=== PATIENT | male | born 1985 | race African-American/Black ===

== ENCOUNTER 2020-05-05 08:26 | Inpatient (IN) | payer SELFPAY ==
[2020-05-05 08:52] LABS: HEMATOCRIT 30.5 % (37.9-51.0); HEMOGLOBIN 10.5 g/dL (13.5-17.0); MEAN CORPUSCULAR HEMOGLOBIN 27.9 pg (27.0-33.4); MEAN CORPUSCULAR HGB CONC 34.3 g/dL (32.0-36.0); MEAN CORPUSCULAR VOLUME 81 fl (80-97); PLATELET COUNT 126 10^3/uL (150-450); RED BLOOD COUNT 3.75 10^6/uL (4.35-5.55); RED CELL DISTRIBUTION WIDTH 15.6 % (11.5-14.0)
--- NOTE | 2020-05-05 08:53 | ER Document Report ---
ED GI/ <AMANDA CAMARILLO - Last Filed: 05/05/20 21:42> <DAVIDDANILO HartSAYDA Nelly - Last Filed: 05/06/20 14:44> - General Chief Complaint: Abdominal Pain Stated Complaint: ABDOMINAL PAIN Time Seen by Provider: 05/05/20 08:38 - HPI Notes: Patient is a 34 y/o male with no medical hx who presents with midepigastric abdominal pain that has been intermittent for the past two weeks. Patient describes the pain as stabbing that is worse after eating. He reports nausea, vomiting, and diarrhea. He also states his urine has been dark in color, like "soda". He was able to keep soup down this morning. He denies chest pain, s hortness of breath, penile discharge, and dysuria. He denies any abdominal surgical history. He is a current everyday smoker but states he has not smoked in the past 2 weeks when this pain began. He denies alcohol and recreational drug use. (SAYDA HERNANDEZ) - Related Data Allergies/Adverse Reactions: No Known Allergies Allergy (Unverified 05/05/20 08:39) Past Medical History - General Information source: Patient - Social History Smoking Status: Current Every Day Smoker Frequency of alcohol use: None Drug Abuse: None Family History: Reviewed & Not Pertinent Patient has homicidal ideation: No <SAYDA HERNANDEZ Nelly - Last Filed: 05/06/20 14:44> Review of Systems - Review of Systems Constitutional: No symptoms reported EENT: No symptoms reported Cardiovascular: No symptoms reported Respiratory: No symptoms reported Gastrointestinal: See HPI Genitourinary: See HPI Male Genitourinary: No symptoms reported Musculoskeletal: No symptoms reported Skin: No symptoms reported Hematologic/Lymphatic: No symptoms reported Neurological/Psychological: No symptoms reported <SAYDA HERNANDEZ M - Last Filed: 05/06/20 14:44> Physical Exam <SAYDA HERNANDEZ Nelly - Last Filed: 05/06/20 14:44> - Vital signs Vitals: Temp Pulse Resp BP Pulse Ox 98 F 98 16 112/64 100 05/05/20 08:39 05/05/20 08:39 05/05/20 08:39 05/05/20 08:39 05/05/20 08:39 - Notes Notes: PHYSICAL EXAMINATION: VITALS: Vitals reviewed and within normal limits. GENERAL: Well-appearing, well-nourished and in no acute distress. HEAD: Atraumatic, normocephalic. EYES: Pupils equal, round, and reactive to light, extraocular movements intact, sclera anicteric, conjunctiva are normal. ENT: Nares patent. Moist mucous membranes. NECK: Normal range of motion, supple without lymphadenopathy. LUNGS: Breath sounds clear to auscultation bilaterally and equal. No wheezes, rales, or rhonchi. HEART: Regular, rate, and rhythm without murmurs. ABDOMEN: Soft abdomen with normoactive bowel sounds. Tenderness to the mid epigastric and RUQ with guarding, no rebound. + Salgado's sign. No masses appreciated. EXTREMITIES: Normal range of motion, no pitting or edema. No cyanosis. NEUROLOGICAL: No focal neurological deficits. Moves all extremities sp ontaneously and on command. PSYCH: Normal mood, normal affect. SKIN: Warm, Dry, normal turgor, no rashes or lesions noted. (SAYDA HERNANDEZ) Course - Laboratory Results Result Diagrams: 05/05/20 08:30 05/05/20 20:29 <AMANDA CAMARILLO - Last Filed: 05/05/20 21:42> - Laboratory Results Result Diagrams: 05/06/20 06:14 05/06/20 06:14 Critical Laboratory Results Reviewed: No Critical Results - Radiology Results Critical Radiology Results Reviewed: Yes Attending or Supervising Physician who Reviewed Radiology: LILLIAM MENA <SAYDA HERNANDEZ - Last Filed: 05/06/20 14:44> - Re-evaluation Re-evalutation: 05/05/20 21:07 I called [facility] to speak with them about possibly getting the patient an ERCP. Awaiting callback from their GI on-call. I clarif ied with [facility], and indeed the hospital is currently on regional management. 05/05/20 21:17 I received a call back from [facility]. 05/05/20 21:[address] Dias, the surgeon personal banking advisor. The plan is to admit the patient to the hospitalist service, as he has a cavitary in his lung lesion also. 05/05/20 21:[address] Jackson, the hospitalist. Patient will be admitted to the medical floor. (RABIA,AMANDA Villegas) Patient is a 34 y/o male with no medical hx who presents with RUQ and midepigastric abdominal pain for the past two weeks. Vital signs are within normal limits. On exam, significant right upper quadrant midepigastric tenderness with positive Salgado's sign. WBC elevated at 16. Total bilirubin and alk phos both elevated with levels of 7.9 and 343. Gallbladder ultrasound shows diffuse gallbladder wall thickening, pericholecystic fluid, sludge and positive sonographic Salgado's sign -these findings are consistent with acute cholecystitis. 05/05/20 10:28 I spoke with the surgeon on-call, Dr. Dias, concerning this patient. Due to his elevated bilirubin on 7.9, he is concerned that patient has an obstructing stone in the biliary tract and patient would need an ERCP. He recommended calling Dr. Cohen to see if he would be willing to come in on his day off to perform and ERCP. If not the patient will need to be transferred for ERCP and cholecystectomy. 05/05/20 10:30 Cipro IV 400mg, Flagyl IV 500mg, and Dilaudid IV 1mg ordered for antibiotic coverage and pain relief. 05/05/20 10:[address] Cohen's office but there was no answer, voicemail was left. 05/05/20 10:52 [facility] contacted for potential transfer but they are at capacity and not accepting stable patient's at this time. 05/05/20 10:55 [facility] contacted for potential transfer but they are also at capacity and not accepting stable patient's at this time. 05/05/20 10:57 Dr. Cohen's office called again and call answered. Spoke with an employee and report given. Was informed that I would be called back shortly. 05/05/20 11:34 Dr. Cohen called back and is unable to consult on this patient for ERCP. 05/05/20 11:40 I spoke with my supervising physician, Dr. Mena, concerning this patient and he recommends ordering an MRCP initially to see if an ERCP is needed. 05/05/20 14:10 MCRP shows pericholecystic fluid consistent with cholecystitis. No dilated common bile duct. Parenchymal opacities at the lung bases with possible right lung mass. Recommended chest XR which was ordered. 05/05/20 14:20 Chest XR shows cavitary right lower lobe lesion. Recommend CT with contrast. I spoke with Dr. Mena who recommends proceeding with CT chest w/IV contrast. 05/05/20 15:14 Patient has a temperature of 102.2. IV acetaminophen ordered. 05/05/20 15:[address] Chest results which shows pulmonary nodules of varying size that exhibit varying degrees of cavitation and tree-in-bud nodular opacities. These patterns of disease can be the result of a number of different conditions, however it is important to note that tubercu losis can manifest as both of these patterns and should be excluded. AFB culture and smear ordered. I spoke with the patient and he denies any cough and hemoptysis at this time. He denies any prior residential or intermediate time. 05/05/20 15:[address] Dias concerning this patient and updated him on the work up and no available transfers. He is still uncomfortable going to surgery without an ERCP and would prefer the patient to be transferred if possible. I will continue to call and keep him informed. 05/05/20 15:42 [facility] transfer center called and message left. 05/05/20 15:45 [facility] transfer center called. They are currently at capacity but will place the patient on a waitlist. They are requesting a facesheet be faxed and imaging uploaded to [facility]. 05/05/20 15:54 [facility] called back and they do not ERCP coverage today. 05/05/20 16:16 Temp 102.6 after IV tylenol. Sepsis protocol fluids and lactic acid ordered. Patient 05/05/20 17:42 Dr. Allan, biliary specialist at [facility], called to consult on the patient. He does not think an ERCP is indicated as there is no common bile duct dilation. He recommends proceeding with acute cholecystectomy or having IR place a percutaneous gallbladder drain. 05/05/20 17:51 Dr. Dias called and updated on the phone call with Dr. Allan. He still does not feel comfortable performing an acute cholecystectomy without an ERCP. 05/05/20 18:11 Dr. Espinosa called to see if he could perform ERCP at a later time. He states he is too busy at this time but he did recommend proceeding with acute cholecystectomy and doing ERCP later as an ERCP is not emergent, where the acute cholecystectomy is. 05/05/20 18:12 Dr. Mena tried to call Dr. Dias but he is currently in the OR and will call back later. 05/05/20 20:02 Dr. Dias agreed to take the patient to surgery if the patient could have an ERCP done by Sunday05/08/20. I called Dr. Espinosa to see if he was available and he is not. We will continue to work on transferring the patient to receive ERCP and acute cholecystectomy. 05/05/20 20:15 Sign out given to Amanda Camarillo NP. (SAYDA HERNANDEZ) - Vital Signs Vital signs: Temp Pulse Resp BP Pulse Ox 98.3 F 96 20 113/79 99 05/06/20 08:33 05/05/20 18:15 05/06/20 07:01 05/06/20 07:01 05/06/20 07:01 - Laboratory Results Laboratory Results Interpreted: 05/05/20 05/05/20 05/05/20 08:30 08:30 08:30 WBC 16.0 H RBC 3.75 L Hgb 10.5 L Hct 30.5 L RDW 15.6 H Plt Count 126 L Seg Neuts % (Manual) 88 H Band Neutrophils % 1 L Lymphocytes % (Manual) 3 L Abs Neuts (Manual) 14.2 H PT 15.7 H Sodium 131.9 L Chloride 96 L BUN 63 H Creatinine 1.71 H Est GFR ( Amer) 55 L Est GFR (MDRD) Non-Af 46 L Calcium 8.3 L Total Bilirubin 7.9 H Direct Bilirubin 7.1 H AST 101 H Alkaline Phosphatase 343 H Creatine Kinase Total Protein Albumin 2.4 L Lipase Urine Protein Urine Blood Urine Bilirubin Urine Urobilinogen 05/05/20 05/05/20 05/05/20 08:30 08:30 20:29 WBC RBC Hgb Hct RDW Plt Count Seg Neuts % (Manual) Band Neutrophils % Lymphocytes % (Manual) Abs Neuts (Manual) PT Sodium 131.5 L Chloride BUN 59 H Creatinine 1.61 H Est GFR ( Amer) 59 L Est GFR (MDRD) Non-Af 49 L Calcium 7.7 L Total Bilirubin 7.9 H Direct Bilirubin 7.1 H AST 80 H Alkaline Phosphatase 252 H Creatine Kinase < 20 L Total Protein 5.7 L Albumin 2.0 L Lipase 19.8 L Urine Protein 30 H Urine Blood SMALL H Urine Bilirubin SMALL H Urine Urobilinogen 4.0 H - Radiology Results Radiology Results Interpreted: Abdomen Ultrasound 05/05/20 08:46 IMPRESSION: 1. Diffuse gallbladder wall thickening, pericholecystic fluid, sludge and positive Salgado's sign - these findings are concerning for an acute cholecystitis. 2. The mid and distal abdominal aorta are obscured by overlying bowel. Abdomen MRI 05/05/20 11:39 IMPRESSION: Pericholecystic fluid consistent with cholecystitis. No dilated common bile duct. Parenchymal opacities at the lung bases with possible right lung mass. Chest X-Ray 05/05/20 14:09 IMPRESSION: Cavitary right lower lobe lesion. Recommend CT with contrast. Chest CT 05/05/20 14:49 IMPRESSION: Pulmonary nodules of varying size that exhibit varying degrees of cavitation and tree-in-bud nodular opacities. These patterns of disease can be the result of a number of different conditions, however it is important to note that tuberculosis can manifest as both of these patterns and should be excluded. (SAYDA HERNANDEZ) Discharge - Discharge Admitting Provider: [facility] Unit Admitted: Medical Floor <AMANDA CAMARILLO - Last Filed: 05/05/20 21:42> <SAYDA HERNANDEZ - Last Filed: 05/06/20 14:44> - Discharge Clinical Impression: Acute cholecystitis, Cavitary lesion of lung Condition: Stable Disposition: ADMITTED INPATIENT
[2020-05-05 08:54] LABS: APPEARANCE,URINE CLOUDY; BILIRUBIN,URINE SMALL (NEGATIVE); COLOR,URINE AMBER; GLUCOSE, URINE NEGATIVE (NEGATIVE); KETONES,URINE NEGATIVE (NEGATIVE); LEUKOCYTE ESTERASE,URINE NEGATIVE (NEGATIVE); NITRITE,URINE NEGATIVE (NEGATIVE); PROTEIN,URINE 30 mg/dL (NEGATIVE); URINE SPECIFIC GRAVITY 1.016
[2020-05-05 08:57] LABS: INTERNATIONAL RATION (INR) 1.23; PROTHROMBIN TIME 15.7 SEC (11.4-15.4)
[2020-05-05 09:07] LABS: ALBUMIN 2.4 g/dL (3.5-5.0); ALKALINE PHOSPHATASE 343 U/L (38-126); ANION GAP 9 (5-19); ASPARTATE AMINO TRANSFERASE 101 U/L (17-59); BILIRUBIN,DIRECT 7.1 mg/dL (0.0-0.4); BILIRUBIN,TOTAL 7.9 mg/dL (0.2-1.3); BLOOD UREA NITROGEN 63 mg/dL (7-20); CALCIUM 8.3 mg/dL (8.4-10.2); CARBON DIOXIDE 27 mmol/L (22-30); CHLORIDE 96 mmol/L (98-107); GLUCOSE 80 mg/dL (75-110); POTASSIUM 3.8 mmol/L (3.6-5.0); TOTAL PROTEIN 6.5 g/dL (6.3-8.2)
[2020-05-05 09:09] LABS: ABSOLUTE LYMPHOCYTES# (MANUAL) 0.5 10^3/uL (0.5-4.7); ABSOLUTE MONOCYTES # (MANUAL) 1.3 10^3/uL (0.1-1.4); BAND NEUTROPHILS % (MANUAL) 1 % (3-5); BASOPHILS % (MANUAL) 0 % (0-2); EOSINOPHILS % (MANUAL) 0 % (0-6); LYMPHOCYTES % (MANUAL) 3 % (13-45); MONOCYTES % (MANUAL) 8 % (3-13); SEGMENTED NEUTROPHILS % (MAN) 88 % (42-78); TOTAL CELLS COUNTED 100
[2020-05-05 09:10] LABS: PLATELET COMMENT DECREASED; RBC MORPHOLOGY COMMENT NORMO-CYTIC/CHROMIC; TOXIC VACUOLATION PRESENT
[2020-05-05] MEDS ORDERED: NORMAL SALINE 1000 ML 1,000 ML IV ONE (09:30)
[2020-05-05 09:43] LABS: CREATINE KINASE < 20 U/L (55-170)
--- NOTE | 2020-05-05 09:53 | RADIOLOGY REPORT (SQ) ---
EXAM DESCRIPTION: U/S ABDOMEN LIMITED W/O DOP IMAGES COMPLETED DATE/TIME: 05/05/2020 9:22 am REASON FOR STUDY: RUQ pain COMPARISON: None. TECHNIQUE: Dynamic and static grayscale images acquired of the abdomen and recorded on PACS. Additio nal selected color Doppler and spectral images recorded. LIMITATIONS: None. FINDINGS: PANCREAS: The visualized portions of the pancreas appear normal. LIVER: Normal contour and echotexture of the liver. LIVER VASCULATURE: Normal hepatopetal directional flow in the main portal vein. GALLBLADDER: The gallbladder wall is diffusely thickened (measures 5 mm). There is sludge within the gallbladder lumen and there is pericholecystic fluid. ULTRASOUND-DETECTED AGUIAR'S SIGN: Positive. INTRAHEPATIC DUCTS AND COMMON DUCT: The common bile duct measures 5 mm in diameter. There is no dila tation of the intrahepatic ducts. INFERIOR VENA CAVA: Not assessed. AORTA: The mid and distal abdominal aorta are obscured by overlying bowel. RIGHT KIDNEY: The right kidney measures 11.7 cm in length. There is no hydronephrosis. PERITONEAL AND RIGHT PLEURAL SPACE: No ascites or effusions. OTHER: No other findings. IMPRESSION: 1. Diffuse gallbladder wall thickening, pericholecystic fluid, sludge and positive Murp hy's sign - these findings are concerning for an acute cholecystitis. 2. The mid and distal abdominal aorta are obscured by overlying bowel. TECHNICAL DOCUMENTATION: JOB ID: [id number] [employer]- All Rights Reserved Reading location - IP/workstation name: [email or web address]
[2020-05-05] MEDS ORDERED: CIPROFLOXACIN 400 MG/D5W RTU 400 MG/200 ML RTUPB IV ONE (10:46)
[2020-05-05] MEDS ORDERED: HYDROMORPHONE HCL INJ/PF 2 MG/ML AMPULE IV ONE (10:46)
[2020-05-05] MEDS ORDERED: METRONIDAZOLE 500 MG/NS RTU 500 MG/100 ML RTUPB IV ONE (10:47)
--- NOTE | 2020-05-05 14:07 | RADIOLOGY REPORT (SQ) ---
EXAM DESCRIPTION: MRI ABDOMEN WITHOUT IMAGES COMPLETED DATE/TIME: 05/05/2020 1:31 pm REASON FOR STUDY: MRCP COMPARISON: Ultrasound TECHNIQUE: Noncontrast MRCP. Source and MIP images reviewed. LIMITATIONS: None. FINDINGS: GALLBLADDER: Pericholecystic fluid. No obvious stones. INTRAHEPATIC DUCTS: Nondilated. EXTRAHEPATIC DUCTS: Common duct is normal caliber. No dilatation of the pancreatic duct. No ductal filling defects noted. PANCREAS: Generally homogeneous, no gross mass or significant signal alteration. No surrounding infl ammatory changes or fluid. Pancreatic duct is normal. LIVER, SPLEEN, KIDNEYS, ADRENALS: No significant abnormality. VESSELS: No evidence of aneurysm. Grossly appropriate flow voids in the major vascular structures. LUNG BASES: Basilar opacities. Possible mass on right. OTHER: No other significant finding. IMPRESSION: Pericholecystic fluid consistent with cholecystitis. No dilated common bile duct. Parenchymal opacities at the lung bases with possible right lung mass. COMMENT: Recommend chest x-ray. TECHNICAL DOCUMENTATION: JOB ID: [id number] 2010 [employer]- All Rights Reserved Reading location - IP/workstation name: [email or web address]
--- NOTE | 2020-05-05 14:35 | RADIOLOGY REPORT (SQ) ---
EXAM DESCRIPTION: CHEST SINGLE VIEW IMAGES COMPLETED DATE/TIME: 05/05/2020 2:20 pm REASON FOR STUDY: possible right lung mass seen on MRCP COMPARISON: None. EXAM PARAMETERS: NUMBER OF VIEWS: One view. TECHNIQUE: Single frontal radiographic view of the chest acquired. RADIATION DOSE: NA LIMITATIONS: None. FINDINGS: LUNGS AND PLEURA: Vague cystic opacity in the right mid zone. Left lung is clear. MEDIASTINUM AND HILAR STRUCTURES: No masses. Contour normal. HEART AND VASCULAR STRUCTURES: Heart normal in size. Normal vasculature. BONES: No acute findings. HARDWARE: None in the chest. OTHER: No other significant finding. IMPRESSION: Cavitary right lower lobe lesion. Recommend CT with contrast. TECHNICAL DOCUMENTATION: JOB ID: [id number] 2010 [employer]- All Rights Reserved Reading location - IP/workstation name: [email or web address]
[2020-05-05] MEDS ORDERED: MORPHINE SULFATE 10 MG/ML INJ IV ONE ×2 (14:56→21:33)
[2020-05-05] MEDS ORDERED: ACETAMINOPHEN 1,000 MG/100 ML RTUPB IV ONE (15:14)
--- NOTE | 2020-05-05 15:24 | RADIOLOGY REPORT (SQ) ---
EXAM DESCRIPTION: CT CHEST WITH IMAGES COMPLETED DATE/TIME: 05/05/2020 3:03 pm REASON FOR STUDY: right lower lobe cavitary lesion COMPARISON: AP view of the chest from 05/05/2020. TECHNIQUE: CT scan of the chest performed using helical scanning technique with dynamic intravenous contrast injection. Images reviewed with lung, soft tissue and bone windows. Reconstructed coronal and sagittal MPR and MIP images reviewed. All images stored on PACS. All CT scanners at this facility use dose modulation, iterative reconstruction, and/or weight based d osing when appropriate to reduce radiation dose to as low as reasonably achievable (ALARA). [facility]: Dose Right [facility]: CareDose [facility]: Dose Right [facility]: Teradose 4D [facility]: BroadClip CONTRAST TYPE AND DOSE: 80 mL Omnipaque 350- low osmolar. RENAL FUNCTION: Creatinine 1.71 milligrams/deciliter. RADIATION DOSE: CT Rad equipment meets quality standard of care and radiation dose reduction techniq ues were employed. CTDIvol: 7.2 mGy. DLP: 292 mGy-cm. LIMITATIONS: None. FINDINGS: LUNGS AND PLEURA: The trachea and main bronchi are patent. There are numerous nodules of varying sizes that exhibit varying degrees of cavitation ; the largest of these nodules is located in the right middle lobe and it measures 2.6 x 1.9 cm. In addition to the nodules, there are scattered areas of centrilobular nodularity in a linear branching pattern. There is no lobar consolidation, g round-glass opacification, pleural effusion or pneumothorax. There is no bronchiectasis, bronchial w all thickening or mucus plugging. HILAR AND MEDIASTINAL STRUCTURES: There is no enlarged mediastinal hilar adenopathy. HEART AND VASCULAR STRUCTURES: No aneurysm or dissection of the thoracic aorta. HARDWARE: None in the chest. UPPER ABDOMEN: No acute abnormality. THYROID AND OTHER SOFT TISSUES: No adenopathy or mass. BONES: No fracture or osseous lesion. OTHER: No other finding. IMPRESSION: Pulmonary nodules of varying size that exhibit varying degrees of cavitation and tree-in -bud nodular opacities. These patterns of disease can be the result of a number of different conditi ons, however it is important to note that tuberculosis can manifest as both of these patterns and terri uld be excluded. COMMENT: This report was called to SAYDA HERNANDEZ PA-C at 15:17 on 05/05/2020. TECHNICAL DOCUMENTATION: JOB ID: [id number] Quality ID # [id number]: Final reports with documentation of one or more dose reduction techniques (e.g., Au tomated exposure control, adjustment of the mA and/or kV according to patient size, use of iterative reconstruction technique) 2010 [employer]- All Rights Reserved Reading location - IP/workstation name: [email or web address]
[2020-05-05] MEDS ORDERED: NORMAL SALINE IV ONE (16:15)
[2020-05-05] MEDS ORDERED: METRONIDAZOLE 500 MG/NS RTU 500 MG/100 ML RTUPB IV SCH (19:00)
[2020-05-05 20:53] LABS: ALKALINE PHOSPHATASE 252 U/L (38-126); ANION GAP 8 (5-19); ASPARTATE AMINO TRANSFERASE 80 U/L (17-59); BILIRUBIN,DIRECT 7.1 mg/dL (0.0-0.4); BILIRUBIN,TOTAL 7.9 mg/dL (0.2-1.3); BLOOD UREA NITROGEN 59 mg/dL (7-20); CALCIUM 7.7 mg/dL (8.4-10.2); CARBON DIOXIDE 23 mmol/L (22-30); CHLORIDE 101 mmol/L (98-107); GLUCOSE 75 mg/dL (75-110); POTASSIUM 3.8 mmol/L (3.6-5.0); TOTAL PROTEIN 5.7 g/dL (6.3-8.2)
--- NOTE | 2020-05-05 21:27 | PDOC CONSULTATION ---
Consultation Consult Date: 05/05/20 Attending physician:: AMANDA CAMARILLO Provider Consulted: ARIANNA PHELAN Consult reason:: cholecystitis, possible choledocholithiasis History of Present Illness History of Present Illness: CHRISTOFER ANTHONY is a 34 year old male with no medical hx who presents with midepigastric abdominal pain that has been intermittent for the past two weeks. Patient describes the pain as stabbing that is worse after eating. He reports nausea, vomiting, and diarrhea. He also states his urine has been dark in color, like "soda". He was able to keep soup down this morning. He denies chest pain, shortness of breath, penile discharge, and dysuria. He denies any abdominal surgical history. He is a current everyday smoker but states he has not smoked in the past 2 weeks when this pain began. He denies alcohol and recreational drug use. Social History Smoking Status: Current Every Day Smoker Family History Family History: Reviewed & Not Pertinent Parental Family History Reviewed: No Children Family History Reviewed: NA Sibling(s) Family History Reviewed.: NA Medication/Allergy Allergies/Adverse Reactions: No Known Allergies Allergy (Unverified 05/05/20 08:39) Review of Systems Constitutional: PRESENT: anorexia, fever(s) Eyes: ABSENT: visual disturbances Ears: ABSENT: hearing changes Nose, Mouth, and Throat: ABSENT: as per HPI, headache(s), mouth pain, sore throat, vertigo, other Breasts: ABSENT: as per HPI, other Cardiovascular: ABSENT: as per HPI, chest pain, dyspnea on exertion, edema, orthropnea, palpitations, other Respiratory: ABSENT: as per HPI, cough, dyspnea, hemoptysis, sputum, other Gastrointestinal: ABSENT: abdominal pain, constipation, diarrhea, hematemesis, hematochezia, nausea, vomiting Genitourinary: ABSENT: as per HPI, difficulty urinating, dysuria, hematuria, nocturia, other Musculoskeletal: ABSENT: as per HPI, back pain, deformity, joint swelling, muscle weakness, other Integumentary: ABSENT: as per HPI, diaphoresis, erythema, lesions, pruritus, rash, wounds, other Neurological: ABSENT: as per HPI, abnormal gait, abnormal movements, abnormal speech, confusion, convulsions, dizziness, focal weakness, frequent falls, lack of coordination, memory loss, numbness, paresthesias, restless legs, syncope, tingling, tremor(s), vertigo, weakness, other Psychiatric: ABSENT: as per HPI, anxiety, depression, hallucinations, homidical ideation, suicidal ideation, other Endocrine: ABSENT: cold intolerance, heat intolerance, polydipsia, polyuria Hematologic/Lymphatic: ABSENT: easy bleeding, easy bruising Allergic/Immunologic: ABSENT: as per HPI, seasonal rhinorrhea, other Physical Exam Vital Signs: Temp Pulse Resp BP Pulse Ox 98.2 F 96 23 H 119/65 96 05/05/20 20:24 05/05/20 18:15 05/05/20 20:24 05/05/20 20:24 05/05/20 20:24 Intake & Output 05/04/20 05/05/20 05/06/20 06:59 06:59 06:59 Intake Total 3520 Balance 3520 Weight 70.76 kg General appearance: PRESENT: mild distress Head exam: PRESENT: normocephalic Eye exam: PRESENT: EOMI Ear exam: PRESENT: normal external ear exam Mouth exam: PRESENT: moist Neck exam: PRESENT: full ROM Respiratory exam: PRESENT: clear to auscultation angie Cardiovascular exam: PRESENT: RRR Pulses: PRESENT: normal radial pulses, normal femoral pulses Vascular exam: PRESENT: normal capillary refill Breast: PRESENT: Normal GI/Abdominal exam: PRESENT: tenderness - ruq Rectal exam: PRESENT: deferred Extremities exam: PRESENT: full ROM Musculoskeletal exam: PRESENT: full ROM Neurological exam: PRESENT: alert, awake, oriented to person, oriented to place Psychiatric exam: PRESENT: appropriate affect Skin exam: PRESENT: dry Results Laboratory Results: 05/05/20 08:30 05/05/20 20:29 05/05/20 05/05/20 05/05/20 08:30 08:30 08:30 WBC 16.0 H RBC 3.75 L Hgb 10.5 L Hct 30.5 L MCV 81 MCH 27.9 MCHC 34.3 RDW 15.6 H Plt Count 126 L Seg Neutrophils % Not Reportable Sodium 131.9 L Potassium 3.8 Chloride 96 L Carbon Dioxide 27 Anion Gap 9 BUN 63 H Creatinine 1.71 H Est GFR ( Amer) 55 L Glucose 80 Lactic Acid Calcium 8.3 L Total Bilirubin 7.9 H AST 101 H Alkaline Phosphatase 343 H Total Protein 6.5 Albumin 2.4 L Lipase Urine Color ASHLEY Urine Appearance CLOUDY Urine pH 5.0 Ur Specific [place] 1.016 Urine Protein 30 H Urine Glucose (UA) NEGATIVE Urine Ketones NEGATIVE Urine Blood SMALL H Urine Nitrite NEGATIVE Ur Leukocyte Esterase NEGATIVE Urine WBC (Auto) 12 Urine RBC (Auto) 2 05/05/20 05/05/20 05/05/20 08:30 16:42 20:29 WBC RBC Hgb Hct MCV MCH MCHC RDW Plt Count Seg Neutrophils % Sodium Potassium Chloride Carbon Dioxide Anion Gap BUN Creatinine Est GFR ( Amer) Glucose Lactic Acid 1.1 0.9 Calcium Total Bilirubin AST Alkaline Phosphatase Total Protein Albumin Lipase 19.8 L Urine Color Urine Appearance Urine pH Ur Specific [place] Urine Protein Urine Glucose (UA) Urine Ketones Urine Blood Urine Nitrite Ur Leukocyte Esterase Urine WBC (Auto) Urine RBC (Auto) 05/05/20 20:29 WBC RBC Hgb Hct MCV MCH MCHC RDW Plt Count Seg Neutrophils % Sodium 131.5 L Potassium 3.8 Chloride 101 Carbon Dioxide 23 Anion Gap 8 BUN 59 H Creatinine 1.61 H Est GFR ( Amer) 59 L Glucose 75 Lactic Acid Calcium 7.7 L Total Bilirubin 7.9 H AST 80 H Alkaline Phosphatase 252 H Total Protein 5.7 L Albumin 2.0 L Lipase Urine Color Urine Appearance Urine pH Ur Specific [place] Urine Protein Urine Glucose (UA) Urine Ketones Urine Blood Urine Nitrite Ur Leukocyte Esterase Urine WBC (Auto) Urine RBC (Auto) 05/05/20 08:30 Creatine Kinase < 20 L Impressions: Abdomen Ultrasound 05/05/20 08:46 IMPRESSION: 1. Diffuse gallbladder wall thickening, pericholecystic fluid, sludge and positive Salgado's sign - these findings are concerning for an acute cholecystitis. 2. The mid and distal abdominal aorta are obscured by overlying bowel. Abdomen MRI 05/05/20 11:39 IMPRESSION: Pericholecystic fluid consistent with cholecystitis. No dilated common bile duct. Parenchymal opacities at the lung bases with possible right lung mass. Chest X-Ray 05/05/20 14:09 IMPRESSION: Cavitary right lower lobe lesion. Recommend CT with contrast. Chest CT 05/05/20 14:49 IMPRESSION: Pulmonary nodules of varying size that exhibit varying degrees of cavitation and tree-in-bud nodular opacities. These patterns of disease can be the result of a number of different conditions, however it is important to note that tuberculosis can manifest as both of these patterns and should be excluded. Assessment & Plan - Plan Summary Plan Summary: cholecysitis vs choledocholithiasis Cavitary lung lesion right side Rule out tuberculosis Patient with elevated liver function studies total bilirubin is 7.9 alkaline phosphatase is elevated AST and ALT relatively normal. Currently patient unable to be transferred to higher level of care in need of ERCP therefore will ask medical service to admit the patient for treatment of his cholecystitis. Consideration for laparoscopic cholecystectomy versus open cholecystectomy common bile duct exploration. Patient also need a work-up of his right-sided cavitary lung lesion. We will follow along with medicine we will repeat CBC and liver function studies in the morning. We will continue IV antibiotics for now.
[2020-05-05] MEDS ORDERED: CIPROFLOXACIN 400 MG/D5W RTU 400 MG/200 ML RTUPB IV SCH (22:00)
[2020-05-05] MEDS: HEPARIN SOD (PORCINE) 5,000 UNIT/ML 1 ML VIAL SUBCUT SCH (23:05)
[2020-05-05] MEDS: FAMOTIDINE INJ/PF 20 MG/2 ML SDV IV SCH (23:17)
[2020-05-05] MEDS: NORMAL SALINE 1000 ML 1,000 ML IV PRN (23:22)
--- NOTE | 2020-05-05 23:22 | PDOC H&P ---
History of Present Illness Admission Date/PCP: 05/05/20 21:53 Patient complains of: Abdominal pain History of Present Illness: CHRISTOFER ANTHONY is a 34 year old male with no significant past medical history who presents with 2 weeks duration of epigastric pain. He describes the pain as constant, sharp, nonradiating, 10/10 in intensity, aggravated by eating. Initi ally when the pain started he used to get some relief from [id number] ibuprofen and Tylenol but the past week nothing has been helping him for the pain. Associated with this he also reports that he feels nauseated, episodes of nonbloody, nonbilious vomiting of ingested matter. He also endorses intermittent fever and decreased appetite. He denies any diarrhea, hematochezia, melena or hematemesis. Patient states that he has lost some weight in the past 2 weeks but denies any cough, chest pain, night sweating, shortness of breath, skin rash. He has no history of travel out of the country, incarceration or any close contact with a chronic cougher. Social History Information Source: Patient Lives with: Family Smoking Status: Current Every Day Smoker Frequency of Alcohol Use: None Drugs: None - Advance Directive Resuscitation Status: Full Code Family History Family History: Reviewed & Not Pertinent Parental Family History Reviewed: Yes Children Family History Reviewed: Yes Sibling(s) Family History Reviewed.: Yes Medication/Allergy Allergies/Adverse Reactions: No Known Allergies Allergy (Unverified 05/05/20 08:39) Review of Systems Constitutional: ABSENT: chills, headache(s), weight gain, weight loss Eyes: ABSENT: visual disturbances Ears: ABSENT: hearing changes Cardiovascular: ABSENT: chest pain, dyspnea on exertion, edema, orthropnea, palpitations Respiratory: ABSENT: cough, hemoptysis Gastrointestinal: PRESENT: as per HPI Genitourinary: ABSENT: dysuria, hematuria Musculoskeletal: ABSENT: joint swelling Integumentary: ABSENT: rash, wounds Neurological: ABSENT: abnormal gait, abnormal speech, confusion, dizziness, focal weakness, syncope Psychiatric: ABSENT: anxiety, depression, homidical ideation, suicidal ideation Endocrine: ABSENT: cold intolerance, heat intolerance, polydipsia, polyuria Hematologic/Lymphatic: ABSENT: easy bleeding, easy bruising Physical Exam Vital Signs: Temp Pulse Resp BP Pulse Ox 98.2 F 96 23 H 119/65 96 05/05/20 20:24 05/05/20 18:15 05/05/20 20:24 05/05/20 20:24 05/05/20 20:24 Intake & Output 05/04/20 05/05/20 05/06/20 06:59 06:59 06:59 Intake Total 3820 Balance 3820 Weight 70.76 kg Additional comments: GENERAL APPEARANCE: Alert and oriented x3, in mild discomfort due to pain HEENT: Normocephalic and atraumatic. No scleral icterus. Moist oral mucosa NECK: Supple. No lymphadenopathy or tenderness. No carotid bruit. No JVD CHEST: Symmetric. Nontender to palpation. LUNGS: Clear with good air entry bilaterally. No wheezing or crackles HEART: Regular rate and rhythm with normal S1 and S2. No murmurs, gallops, or rubs. ABDOMEN: soft, active bowel sounds, has direct tenderness at the right upper quadrant and epigastric area. Salgado sign was positive. No organomegaly detected. EXTREMITIES: No cyanosis, clubbing, or edema. MUSCULOSKELETAL: No deformity, atrophy or swelling noted PSYCHIATRIC: Recent and remote memory is intact. Appropriate mood and affect. SKIN: Warm, dry, and well perfused. No lesions or rashes are noted. NEUROLOGIC: No focal sensory or motor deficits are noted. Results Laboratory Results: 05/05/20 08:30 05/05/20 20:29 05/05/20 05/05/20 05/05/20 08:30 08:30 08:30 WBC 16.0 H RBC 3.75 L Hgb 10.5 L Hct 30.5 L MCV 81 MCH 27.9 MCHC 34.3 RDW 15.6 H Plt Count 126 L Seg Neutrophils % Not Reportable Sodium 131.9 L Potassium 3.8 Chloride 96 L Carbon Dioxide 27 Anion Gap 9 BUN 63 H Creatinine 1.71 H Est GFR ( Amer) 55 L Glucose 80 Lactic Acid Calcium 8.3 L Total Bilirubin 7.9 H AST 101 H Alkaline Phosphatase 343 H Total Protein 6.5 Albumin 2.4 L Lipase Urine Color ASHLEY Urine Appearance CLOUDY Urine pH 5.0 Ur Specific [place] 1.016 Urine Protein 30 H Urine Glucose (UA) NEGATIVE Urine Ketones NEGATIVE Urine Blood SMALL H Urine Nitrite NEGATIVE Ur Leukocyte Esterase NEGATIVE Urine WBC (Auto) 12 Urine RBC (Auto) 2 05/05/20 05/05/20 05/05/20 08:30 16:42 20:29 WBC RBC Hgb Hct MCV MCH MCHC RDW Plt Count Seg Neutrophils % Sodium Potassium Chloride Carbon Dioxide Anion Gap BUN Creatinine Est GFR ( Amer) Glucose Lactic Acid 1.1 0.9 Calcium Total Bilirubin AST Alkaline Phosphatase Total Protein Albumin Lipase 19.8 L Urine Color Urine Appearance Urine pH Ur Specific [place] Urine Protein Urine Glucose (UA) Urine Ketones Urine Blood Urine Nitrite Ur Leukocyte Esterase Urine WBC (Auto) Urine RBC (Auto) 05/05/20 20:29 WBC RBC Hgb Hct MCV MCH MCHC RDW Plt Count Seg Neutrophils % Sodium 131.5 L Potassium 3.8 Chloride 101 Carbon Dioxide 23 Anion Gap 8 BUN 59 H Creatinine 1.61 H Est GFR ( Amer) 59 L Glucose 75 Lactic Acid Calcium 7.7 L Total Bilirubin 7.9 H AST 80 H Alkaline Phosphatase 252 H Total Protein 5.7 L Albumin 2.0 L Lipase Urine Color Urine Appearance Urine pH Ur Specific [place] Urine Protein Urine Glucose (UA) Urine Ketones Urine Blood Urine Nitrite Ur Leukocyte Esterase Urine WBC (Auto) Urine RBC (Auto) 05/05/20 08:30 Creatine Kinase < 20 L Impressions: Abdomen Ultrasound 05/05/20 08:46 IMPRESSION: 1. Diffuse gallbladder wall thickening, pericholecystic fluid, sludge and positive Salgado's sign - these findings are concerning for an acute cholecystitis. 2. The mid and distal abdominal aorta are obscured by overlying bowel. Abdomen MRI 05/05/20 11:39 IMPRESSION: Pericholecystic fluid consistent with cholecystitis. No dilated common bile duct. Parenchymal opacities at the lung bases with possible right lung mass. Chest X-Ray 05/05/20 14:09 IMPRESSION: Cavitary right lower lobe lesion. Recommend CT with contrast. Chest CT 05/05/20 14:49 IMPRESSION: Pulmonary nodules of varying size that exhibit varying degrees of cavitation and tree-in-bud nodular opacities. These patterns of disease can be the result of a number of different conditions, however it is important to note that tuberculosis can manifest as both of these patterns and should be excluded. Assessment and Plan - Diagnosis (1) Acute cholecystitis Is this a current diagnosis for this admission?: Yes Plan: Patient presents with 2 weeks duration of abdominal pain Salgado sign is positive Abdominal ultrasound shows diffuse gallbladder wall thickening with pericholecystic fluid, CBD was 5 mm MRI abdomen also showed pericholecystic fluid consistent with cholecystitis, there was no dilated common bile duct Started him on ciprofloxacin and metronidazole We will keep him n.p.o. Continue IV hydration Follow-up with culture and sensitivity results Surgery on board and following (2) Gram-negative bacteremia Is this a current diagnosis for this admission?: Yes Plan: Blood culture grew gram-negative rods Has leukocytosis of 16k with left shift Patient has been hemodynamically stable Patient is currently on ciprofloxacin Follow-up with sensitivity and adjust antibiotic as necessary Closely monitor vital signs for signs of shock (3) Acute kidney injury Is this a current diagnosis for this admission?: Yes Plan: BUN/creatinine on this encounter was 59/1.61 Patient has no baseline to compare with Continue IV hydration Renally dose medication and avoid nephrotoxic's Monitor BMP (4) Cavitary lesion of lung Is this a current diagnosis for this admission?: Yes Plan: MRI abdomen which was done for work-up of cholecystitis showed incidental finding of cavitary lesion right lower lung base Patient denies any respiratory symptoms Has no history of incarceration, contact history with chronic cough or or other constitutional symptoms Chest x-ray showed right lower lobe cavitary lesion CT chest was done at the ED and showed pulmonary nodules with varying degree of cavitation Placed him on airborne isolation Currently he is on IV antibiotic Follow-up with AFB culture and QuantiFERON gold Follow-up with fungal battery (5) Hyponatremia Is this a current diagnosis for this admission?: Yes Plan: Serum sodium 131 on this presentation Likely due to volume depletion due to poor oral intake Continue IV hydration and monitor BMP (6) Elevated bilirubin Is this a current diagnosis for this admission?: Yes - Time Time Spent with patient: 35 or more minutes Total Critical Time (Minutes): 50 Smoking Cessation Education: 3 to 10 minutes Medications reviewed and adjusted accordingly: Yes Anticipated Discharge Disposition: Home, Self Care Anticipated Discharge Timeframe: within 72 hours - Inpatient Certification Based on my medical assessment, after consideration of the patient's comorbidities, presenting symptoms, or acuity I expect that the services needed warrant INPATIENT care.: Yes I certify that my determination is in accordance with my understanding of Medicare's requirements for reasonable and necessary INPATIENT services [42 CFR 412.3e].: Yes Medical Necessity: Need Close Monitoring Due to Risk of Patient Decompensation, Need For IV Fluids, Need for Pain Control, Need for IV Antibiotics, Need for Surgery, Risk of Complication if Not Cared For in Hospital Post Hospital Care: D/C or Transfer Summary
[2020-05-06] MEDS: ONDANSETRON HCL INJ/PF 4 MG/2 ML SDV IV PRN ×2 (03:29→11:17)
[2020-05-06] MEDS: MORPHINE SULFATE 10 MG/ML INJ IV PRN ×4 (03:30→20:21)
[2020-05-06] MEDS: METRONIDAZOLE 500 MG/NS RTU 500 MG/100 ML RTUPB IV SCH ×3 (05:22→21:01)
[2020-05-06 06:54] LABS: ABSOLUTE EOSINOPHILS # (AUTO) 0.1 10^3/uL (0.0-0.6); ABSOLUTE LYMPHOCYTES (AUTO) 0.8 10^3/uL (0.5-4.7); ABSOLUTE MONOCYTES (AUTO) 1.6 10^3/uL (0.1-1.4); ABSOLUTE NEUT (AUTO) 12.1 10^3/uL (1.7-8.2); EOSINOPHILS % (AUTO) 0.6 % (0-6); HEMATOCRIT 25.3 % (37.9-51.0); HEMOGLOBIN 8.6 g/dL (13.5-17.0); LYMPHOCYTES % (AUTO) 5.6 % (13-45); MEAN CORPUSCULAR HEMOGLOBIN 27.7 pg (27.0-33.4); MEAN CORPUSCULAR HGB CONC 33.9 g/dL (32.0-36.0); MEAN CORPUSCULAR VOLUME 82 fl (80-97); MONOCYTES % (AUTO) 11.1 % (3-13); RED CELL DISTRIBUTION WIDTH 15.6 % (11.5-14.0); SEGMENTED NEUTROPHILS % (AUTO) 82.7 % (42-78); TOTAL CELLS COUNTED % (AUTO) 100 %; WHITE BLOOD COUNT 14.6 10^3/uL (4.0-10.5)
[2020-05-06 07:02] LABS: ALKALINE PHOSPHATASE 225 U/L (38-126); ANION GAP 10 (5-19); ASPARTATE AMINO TRANSFERASE 70 U/L (17-59); BILIRUBIN,DIRECT 6.7 mg/dL (0.0-0.4); BILIRUBIN,TOTAL 7.4 mg/dL (0.2-1.3); BLOOD UREA NITROGEN 62 mg/dL (7-20); CALCIUM 7.8 mg/dL (8.4-10.2); CARBON DIOXIDE 20 mmol/L (22-30); CHLORIDE 105 mmol/L (98-107); GLUCOSE 80 mg/dL (75-110); TOTAL PROTEIN 5.7 g/dL (6.3-8.2)
[2020-05-06] MEDS: NORMAL SALINE 1000 ML 1,000 ML IV PRN ×2 (07:07→21:02)
[2020-05-06 07:44] LABS: PLATELET COUNT 96 10^3/uL (150-450)
--- NOTE | 2020-05-06 10:41 | PDOC PROGRESS REPORT ---
Subjective Date:: 05/06/20 Subjective:: Patient complains of right upper quadrant and epigastric abdominal pain that has been persistent for 2 weeks, worsened in the last couple of days. Patient has been taking frequent dosages of ibuprofen for this pain. He has had some degree of anorexia over the past couple weeks due to the pain. Patient denies any jaundice but has noted that his urine is tea colored. Denies acholic stools however. Patient with noted with fever yesterday. Patient denies any alcohol abuse and denies any history of hepatitis. He denies any long-term medical issues. Unable to enter problem list due to computer glitch at this time. Please note the following should be under assessment and plan: Assessment: Acute cholecystitis in a patient with 2 weeks of symptoms with marked tenderness and rigidity in the right upper quadrant along with inflammatory changes seen by imaging studies. In light of 2 weeks with the symptoms and the exam that I am getting, I feel that a cholecystectomy in this setting would be very hazardous with significant risk for bile duct injury and would likely result in a partial open cholecystectomy as well as risk sepsis. I believe that the best option for the patient would be a cholecystostomy tube today to allow drainage of the gallbladder and allow the inflammation to subside with plans for a laparoscopic cholecystectomy in a few weeks when it would be much safer. In regards to his elevated liver function studies, likely compression or obstruction of the biliary tree either by the inflamed gallbladder or choledocholithiasis that is not visualized by MRCP. I have discussed this case with Dr. Espinosa (gastroenterology) who has agreed to see the patient in consultation tomorrow but based on the MRCP, did not recommend ERCP at this time. I have had a long discussion with the patient concerning different options to manage his gallbladder disease and I have recommended the cholecystostomy tube based upon the above-mentioned concerns. He understands my reasoning and the procedure and the fact that he may need to have the cholecystostomy tube in place for several weeks as an outpatient. He also understands risk of the bleeding and damage to adjacent structures with the cholecystostomy tube. He agrees to follow my plan. We will see how the patient does after the cholecystostomy tube and repeat his liver function studies tomorrow and will consult Dr. Espinosa to see the patient tomorrow. I will add Zosyn to his antibiotic coverage to broaden out his coverage. Reason For Visit: ACUTE CHOLECYSTITIS,RIGHT LOWER LOBE CAVITARY LUNG Physical Exam Vital Signs: Temp Pulse Resp BP Pulse Ox 98.3 F 96 20 113/79 99 05/06/20 08:33 05/05/20 18:15 05/06/20 07:01 05/06/20 07:01 05/06/20 07:01 Intake & Output 05/05/20 05/06/20 05/07/20 06:59 06:59 06:59 Intake Total 4920 Balance 4920 Weight 70.76 kg General appearance: PRESENT: no acute distress, cooperative Respiratory exam: PRESENT: clear to auscultation angie Cardiovascular exam: PRESENT: RRR GI/Abdominal exam: PRESENT: other - Marked tenderness to palpation in the right upper quadrant with guarding and almost rigid quality to the abdomen in the right upper quadrant although remainder of the abdomen is soft and nontender. Neurological exam: PRESENT: alert, awake Psychiatric exam: PRESENT: appropriate affect Skin exam: PRESENT: warm Results Laboratory Results: 05/06/20 06:14 05/06/20 06:14 05/05/20 05/05/20 05/05/20 16:42 20:29 20:29 WBC RBC Hgb Hct MCV MCH MCHC RDW Plt Count Seg Neutrophils % Sodium 131.5 L Potassium 3.8 Chloride 101 Carbon Dioxide 23 Anion Gap 8 BUN 59 H Creatinine 1.61 H Est GFR ( Amer) 59 L Glucose 75 Lactic Acid 1.1 0.9 Calcium 7.7 L Magnesium Total Bilirubin 7.9 H AST 80 H Alkaline Phosphatase 252 H Total Protein 5.7 L Albumin 2.0 L 05/06/20 05/06/20 06:14 06:14 WBC 14.6 H RBC 3.10 L Hgb 8.6 L Hct 25.3 L MCV 82 MCH 27.7 MCHC 33.9 RDW 15.6 H Plt Count 96 L Seg Neutrophils % 82.7 H Sodium 134.9 L Potassium 4.0 Chloride 105 Carbon Dioxide 20 L Anion Gap 10 BUN 62 H Creatinine 1.58 H Est GFR ( Amer) > 60 Glucose 80 Lactic Acid Calcium 7.8 L Magnesium 2.5 H Total Bilirubin 7.4 H AST 70 H Alkaline Phosphatase 225 H Total Protein 5.7 L Albumin 2.0 L 05/05/20 10:55 Blood Blood Culture (PCR) - Final Serratia Marcescens 05/05/20 11:17 Blood Blood Culture (PCR) - Final Serratia Marcescens 05/05/20 08:30 Creatine Kinase < 20 L Impressions: Abdomen Ultrasound 05/05/20 08:46 IMPRESSION: 1. Diffuse gallbladder wall thickening, pericholecystic fluid, sludge and positive Salgado's sign - these findings are concerning for an acute cholecystitis. 2. The mid and distal abdominal aorta are obscured by overlying bowel. Abdomen MRI 05/05/20 11:39 IMPRESSION: Pericholecystic fluid consistent with cholecystitis. No dilated common bile duct. Parenchymal opacities at the lung bases with possible right lung mass. Chest X-Ray 05/05/20 14:09 IMPRESSION: Cavitary right lower lobe lesion. Recommend CT with contrast. Chest CT 05/05/20 14:49 IMPRESSION: Pulmonary nodules of varying size that exhibit varying degrees of cavitation and tree-in-bud nodular opacities. These patterns of disease can be the result of a number of different conditions, however it is important to note that tuberculosis can manifest as both of these patterns and should be excluded. Assessment & Plan - Time Anticipated Discharge Disposition: Home, Self Care Anticipated Discharge Timeframe: within 72 hours
[2020-05-06] MEDS: FAMOTIDINE INJ/PF 20 MG/2 ML SDV IV SCH ×2 (11:18→21:01)
[2020-05-06] MEDS: CIPROFLOXACIN 400 MG/D5W RTU 400 MG/200 ML RTUPB IV SCH ×2 (11:20→21:01)
[2020-05-06] MEDS: HEPARIN SOD (PORCINE) 5,000 UNIT/ML 1 ML VIAL SUBCUT SCH ×2 (11:25→21:30)
[2020-05-06] MEDS ORDERED: CALCIUM GLUCONATE 1000 MG/10 ML INJ IV ONE (11:30)
[2020-05-06] MEDS: PIPERACILLIN SODIUM/TAZOBACTAM 3.375 GM in DEXTROSE 5%-WATER 100 ML IV SCH ×2 (14:19→19:36)
[2020-05-06] MEDS ORDERED: MIDAZOLAM 2 MG/2 ML INJ ONE (14:38)
[2020-05-06] MEDS ORDERED: FENTANYL CITRATE INJ/PF 100 MCG/2 ML AMPUL ONE (14:39)
--- NOTE | 2020-05-06 15:49 | RADIOLOGY REPORT (SQ) ---
EXAM DESCRIPTION: CT GUIDED PERCUT DRAIN W/CATH; CT NEEDLE PLACEMENT IMAGES COMPLETED DATE/TIME: 05/06/2020 3:20 pm REASON FOR STUDY: GALLBLADDER DRAINAGE COMPARISON: None. TECHNIQUE: After obtaining informed consent and explaining the risks and benefits of conscious sedat ion,the patient agreed to the procedure. The patient was brought to the CT suite and was placed supin e on the CT gurney. The patient was prepped and draped in the usual sterile fashion. Axial images we re obtained for targeting of thegallbladder. An appropriate access site was selected. IV conscious se dation was administered and physician direction by the registered nurse using 2 milligrams of Versed and 200 micrograms of fentanyl. Physiologic monitoring was provided before, during, and after sedatio n. The total sedation time was 30 minutes. Documentation face to face time, the performing proceduralist, spent monitoring the patient: [address] of the liver was performed to localize an approach for the cholecystostomy. A perc utaneous site was marked. Time out was performed. After skin prep and local lidocaine for skin and deep tissue anesthesia, a coaxial needle was positi oned in the gallbladder. The needle was exchanged for a guidewire. Following serial dilation, a 10 [place] APD catheter was positioned within the gallbladder and position verified with CT fluoro. Bile was aspirated. Catheter was secured with a sterile dressing. No immediate postprocedure complicati ons. Total of [address] fluoro was used. 75 CT Fluoroscopic images were obtained and saved to PACS. All CT scanners at this facility use dose modulation, iterative reconstruction, and/or weight based d osing when appropriate to reduce radiation dose to as low as reasonably achievable (ALARA). [facility]: Dose Right [facility]: CareDose [facility]: Dose Right [facility]: Teradose 4D [facility]: [email or web address] RADIATION DOSE: CT Rad equipment meets quality standard of care and radiation dose reduction techniq ues were employed. CTDIvol: 4.0 - 7.6 mGy. DLP: 234 mGy-cm. mGy. LIMITATIONS: None. FINDINGS: CT guided cholecystostomy as detailed above. IMPRESSION: CT GUIDED CHOLECYSTOSTOMY. NO IMMEDIATE COMPLICATIONS. COMMENT: Patient medication list reviewed:Yes- Quality ID# [id number]:Eligible professional attests to docu menting in the medical record they obtained, updated, or reviewed the patient's current medications.. Quality ID 145: Final reports for procedures using fluoroscopy that document radiation exposure daniele darwin, or exposure time and number of fluorographic images (if radiation exposure indices are not avail able) TECHNICAL DOCUMENTATION: JOB ID: [id number] Quality ID # [id number]: Final reports with documentation of one or more dose reduction techniques (e.g., A utomated exposure control, adjustment of the mA and/or kV according to patient size, use of iterative reconstruction technique) 2010 [employer]- All Rights Reserved Reading location - IP/workstation name: [email or web address]
--- NOTE | 2020-05-06 15:49 | RADIOLOGY REPORT (SQ) ---
EXAM DESCRIPTION: CT GUIDED PERCUT DRAIN W/CATH; CT NEEDLE PLACEMENT IMAGES COMPLETED DATE/TIME: 05/06/2020 3:20 pm REASON FOR STUDY: GALLBLADDER DRAINAGE COMPARISON: None. TECHNIQUE: After obtaining informed consent and explaining the risks and benefits of conscious sedat ion,the patient agreed to the procedure. The patient was brought to the CT suite and was placed supin e on the CT gurney. The patient was prepped and draped in the usual sterile fashion. Axial images we re obtained for targeting of thegallbladder. An appropriate access site was selected. IV conscious se dation was administered and physician direction by the registered nurse using 2 milligrams of Versed and 200 micrograms of fentanyl. Physiologic monitoring was provided before, during, and after sedatio n. The total sedation time was 30 minutes. Documentation face to face time, the performing proceduralist, spent monitoring the patient: [address] of the liver was performed to localize an approach for the cholecystostomy. A perc utaneous site was marked. Time out was performed. After skin prep and local lidocaine for skin and deep tissue anesthesia, a coaxial needle was positi oned in the gallbladder. The needle was exchanged for a guidewire. Following serial dilation, a 10 [place] APD catheter was positioned within the gallbladder and position verified with CT fluoro. Bile was aspirated. Catheter was secured with a sterile dressing. No immediate postprocedure complicati ons. Total of [address] fluoro was used. 75 CT Fluoroscopic images were obtained and saved to PACS. All CT scanners at this facility use dose modulation, iterative reconstruction, and/or weight based d osing when appropriate to reduce radiation dose to as low as reasonably achievable (ALARA). [facility]: Dose Right [facility]: CareDose [facility]: Dose Right [facility]: Teradose 4D [facility]: [employer] RADIATION DOSE: CT Rad equipment meets quality standard of care and radiation dose reduction techniq ues were employed. CTDIvol: 4.0 - 7.6 mGy. DLP: 234 mGy-cm. mGy. LIMITATIONS: None. FINDINGS: CT guided cholecystostomy as detailed above. IMPRESSION: CT GUIDED CHOLECYSTOSTOMY. NO IMMEDIATE COMPLICATIONS. COMMENT: Patient medication list reviewed:Yes- Quality ID# [id number]:Eligible professional attests to docu menting in the medical record they obtained, updated, or reviewed the patient's current medications.. Quality ID 145: Final reports for procedures using fluoroscopy that document radiation exposure daniele darwin, or exposure time and number of fluorographic images (if radiation exposure indices are not avail able) TECHNICAL DOCUMENTATION: JOB ID: [id number] Quality ID # [id number]: Final reports with documentation of one or more dose reduction techniques (e.g., A utomated exposure control, adjustment of the mA and/or kV according to patient size, use of iterative reconstruction technique) 2010 [employer]- All Rights Reserved Reading location - IP/workstation name: [id number]
--- NOTE | 2020-05-06 18:45 | PDOC PROGRESS REPORT ---
Subjective Subjective:: CHRISTOFER ANTHONY is a 34 year old male with no significant past medical history who presents with 2 weeks duration of epigastric pain. He describes the pain as constant, sharp, nonradiating, 10/10 in intensity, aggravated by eating. Initially when the pain started he used to get some relief from [id number] ibuprofen and Tylenol but the past week nothing has been helping him for the pain. Associated with this he also reports that he feels nauseated, episodes of nonbloody, nonbilious vomiting of ingested matter. He also endorses intermittent fever and decreased appetite. He denies any diarrhea, hematochezia, melena or hematemesis. Patient states that he has lost some weight in the past 2 weeks but denies any cough, chest pain, night sweating, shortness of breath, skin rash. He has no history of travel out of the country, incarceration or any close contact with a chronic cougher. 05/06/2020 I had a long discussion with overnight physician, general surgery, GI, ED about this patient today. General surgery has arranged for the patient to have cholecystostomy tube for drainage with plans for a cholecystectomy at a later date. GI stated they would be available tomorrow for ERCP if this is needed. Patient is continued on broad antibiotics for suspected ascending cholangitis. His creatinine has improved down to 1.58 and his bilirubin is mildly improved down to 7.4. His calcium was quite low and I prescribed 1 g IV calcium. Patient appeared clinically stable when I saw him this morning believe he is high risk to deteriorate if he does not have definitive management of the infection source which is his gallbladder/biliary system. He is no longer vomiting but still has significant right upper quadrant pain. Reason For Visit: ACUTE CHOLECYSTITIS,RIGHT LOWER LOBE CAVITARY LUNG Physical Exam Vital Signs: Temp Pulse Resp BP Pulse Ox 98.8 F 96 28 H 133/71 H 97 05/06/20 16:09 05/05/20 18:15 05/06/20 17:01 05/06/20 17:01 05/06/20 17:01 Intake & Output 05/05/20 05/06/20 05/07/20 06:59 06:59 06:59 Intake Total 4920 1300 Balance 4920 1300 Weight 70.76 kg Exam: General appearance: PRESENT: no acute distress, well-developed, well-nourished, acutely ill-appearing -[place] male Head exam: PRESENT: atraumatic, normocephalic Eye exam: PRESENT: conjunctiva pink. ABSENT: scleral icterus Mouth exam: PRESENT: moist Respiratory exam: PRESENT: clear to auscultation angie. ABSENT: rales, rhonchi, wheezes Cardiovascular exam: PRESENT: RRR. ABSENT: diastolic murmur, rubs, systolic murmur GI/Abdominal exam: PRESENT: normal bowel sounds, soft, exquisitely tender right upper quadrant ABSENT: distended, guarding, mass, organolmegaly, rebound Neurological exam: PRESENT: alert, awake, oriented to person, oriented to place, oriented to time, oriented to situation Psychiatric exam: PRESENT: appropriate affect, normal mood Skin exam: PRESENT: dry, intact, warm Results Laboratory Results: 05/06/20 06:14 05/06/20 06:14 05/05/20 05/05/20 05/06/20 20:29 20:29 06:14 WBC 14.6 H RBC 3.10 L Hgb 8.6 L Hct 25.3 L MCV 82 MCH 27.7 MCHC 33.9 RDW 15.6 H Plt Count 96 L Seg Neutrophils % 82.7 H Sodium 131.5 L Potassium 3.8 Chloride 101 Carbon Dioxide 23 Anion Gap 8 BUN 59 H Creatinine 1.61 H Est GFR ( Amer) 59 L Glucose 75 Lactic Acid 0.9 Calcium 7.7 L Magnesium Total Bilirubin 7.9 H AST 80 H Alkaline Phosphatase 252 H Total Protein 5.7 L Albumin 2.0 L 05/06/20 06:14 WBC RBC Hgb Hct MCV MCH MCHC RDW Plt Count Seg Neutrophils % Sodium 134.9 L Potassium 4.0 Chloride 105 Carbon Dioxide 20 L Anion Gap 10 BUN 62 H Creatinine 1.58 H Est GFR ( Amer) > 60 Glucose 80 Lactic Acid Calcium 7.8 L Magnesium 2.5 H Total Bilirubin 7.4 H AST 70 H Alkaline Phosphatase 225 H Total Protein 5.7 L Albumin 2.0 L 05/05/20 10:55 Blood Blood Culture (PCR) - Final Serratia Marcescens 05/05/20 11:17 Blood Blood Culture (PCR) - Final Serratia Marcescens 05/05/20 08:30 Creatine Kinase < 20 L Impressions: Abdomen Ultrasound 05/05/20 08:46 IMPRESSION: 1. Diffuse gallbladder wall thickening, pericholecystic fluid, sludge and positive Salgado's sign - these findings are concerning for an acute cholecystitis. 2. The mid and distal abdominal aorta are obscured by overlying bowel. Abdomen MRI 05/05/20 11:39 IMPRESSION: Pericholecystic fluid consistent with cholecystitis. No dilated common bile duct. Parenchymal opacities at the lung bases with possible right lung mass. Chest X-Ray 05/05/20 14:09 IMPRESSION: Cavitary right lower lobe lesion. Recommend CT with contrast. Chest CT 05/05/20 14:49 IMPRESSION: Pulmonary nodules of varying size that exhibit varying degrees of cavitation and tree-in-bud nodular opacities. These patterns of disease can be the result of a number of different conditions, however it is important to note that tuberculosis can manifest as both of these patterns and should be excluded. Guidance Needle Placement CT 05/06/20 14:00 IMPRESSION: CT GUIDED CHOLECYSTOSTOMY. NO IMMEDIATE COMPLICATIONS. Percutaneous Drainage 05/06/20 14:00 IMPRESSION: CT GUIDED CHOLECYSTOSTOMY. NO IMMEDIATE COMPLICATIONS. Assessment and Plan - Diagnosis (1) Acute cholecystitis Is this a current diagnosis for this admission?: Yes Plan: Per Previous Physician: "Patient presents with 2 weeks duration of abdominal pain Salgado sign is positive Abdominal ultrasound shows diffuse gallbladder wall thickening with pericholecystic fluid, CBD was 5 mm MRI abdomen also showed pericholecystic fluid consistent with cholecystitis, there was no dilated common bile duct Started him on ciprofloxacin and metronidazole We will keep him n.p.o. Continue IV hydration Follow-up with culture and sensitivity results Surgery on board and following" General surgery following Run antibiotics IV fluids Biliary drain placed by IR GI following: Possible ERCP if needed on 05/07 Blood cultures positive for Serratia marcescens (2) Sepsis Qualifiers: Sepsis type: sepsis due to unspecified organism Sepsis acute organ dysfunction status: with acute organ dysfunction Severe sepsis acute organ dysfunction type: acute renal failure Acute renal failure type: unspecified Severe sepsis shock status: without septic shock Qualified Code(s): A41.9 - Sepsis, unspecified organism; R65.20 - Severe sepsis without septic shock; N17.9 - Acute kidney failure, unspecified Is this a current diagnosis for this admission?: Yes Plan: Source is ascending cholangitis from acute cholecystitis and possible choledocholithiasis Right antibiotics IV fluids Hemodynamic monitoring Biliary drain Blood cultures positive for Serratia marcescens (3) Acute kidney injury Is this a current diagnosis for this admission?: Yes Plan: Per Previous Physician: "BUN/creatinine on this encounter was 59/1.61 Patient has no baseline to compare with Continue IV hydration Renally dose medication and avoid nephrotoxic's Monitor BMP" Due to sepsis/infection IV fluids Trend BMP Improving (4) Cavitary lesion of lung Is this a current diagnosis for this admission?: Yes Plan: Per Previous Physician: "MRI abdomen which was done for work-up of cholecystitis showed incidental finding of cavitary lesion right lower lung base Patient denies any respiratory symptoms Has no history of incarceration, contact history with chronic cough or or other constitutional symptoms Chest x-ray showed right lower lobe cavitary lesion CT chest was done at the ED and showed pulmonary nodules with varying degree of cavitation Placed him on airborne isolation Currently he is on IV antibiotic Follow-up with AFB culture and QuantiFERON gold Follow-up with fungal battery" Do not suspect TB given patient does not have any history of TB exposure and has no risk factors for exposure for TB such as travel outside the country, living in a residential's or [place] [facility] care facility 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, noting that he becomes severely ill when he inhales this dust and is often unable to work the next day after an exposure Follow-up with pulmonology Follow-up AFB/QuantiFERON gold though suspect these will be negative (5) Elevated bilirubin Is this a current diagnosis for this admission?: Yes (6) Gram-negative bacteremia Is this a current diagnosis for this admission?: Yes Plan: Per Previous Physician: "Blood culture grew gram-negative rods Has leukocytosis of 16k with left shift Patient has been hemodynamically stable Patient is currently on ciprofloxacin Follow-up with sensitivity and adjust antibiotic as necessary Closely monitor vital signs for signs of shock" (7) Hyponatremia Is this a current diagnosis for this admission?: Yes Plan: Per Previous Physician: "Serum sodium 131 on this presentation Likely due to volume depletion due to poor oral intake Continue IV hydration and monitor BMP" IV fluids Trend BMP Improving - Time Time Spent with patient: 35 or more minutes Medications reviewed and adjusted accordingly: Yes Anticipated Discharge Disposition: Home, Self Care Anticipated Discharge Timeframe: within 72 hours - Inpatient Certification Based on my medical assessment, after consideration of the patient's comorbidities, presenting symptoms, or acuity I expect that the services needed warrant INPATIENT care.: Yes I certify that my determination is in accordance with my understanding of Medicare's requirements for reasonable and necessary INPATIENT services [42 CFR 412.3e].: Yes Medical Necessity: Significant Comorbidiites Make Outpatient Treatment Too Risky, Need Close Monitoring Due to Risk of Patient Decompensation, Need For IV Fluids, Need for IV Antibiotics, Risk of Complication if Not Cared For in Hospital, Risk of Diagnosis Which Will Require Inpatient Eval/Care/Monitoring
--- NOTE | 2020-05-06 21:53 | PDOC PROGRESS REPORT ---
Subjective Date:: 05/06/20 Subjective:: Tolerated the procedure well. Notes that right upper quadrant abdominal pain gay s improved from preprocedure levels but he still has quite a bit of pain at the cholecystostomy insertion site. Reason For Visit: ACUTE CHOLECYSTITIS,RIGHT LOWER LOBE CAVITARY LUNG Physical Exam Vital Signs: Temp Pulse Resp BP Pulse Ox 97.9 F 96 22 H 133/63 H 99 05/06/20 20:36 05/06/20 20:05 05/06/20 20:05 05/06/20 20:05 05/06/20 20:05 Intake & Output 05/05/20 05/06/20 05/07/20 06:59 06:59 06:59 Intake Total 4920 1300 Balance 4920 1300 Weight 70.76 kg General appearance: PRESENT: no acute distress, cooperative Respiratory exam: PRESENT: clear to auscultation angie Cardiovascular exam: PRESENT: RRR Vascular exam: PRESENT: normal capillary refill GI/Abdominal exam: PRESENT: other - Soft, tender in the right side at the cholecystostomy tube site but exam is improved from his preprocedure exam. Region is softer with less tenderness. The cystostomy tube draining dark bilious fluid. Skin exam: PRESENT: warm Results Laboratory Results: 05/06/20 06:14 05/06/20 06:14 05/06/20 05/06/20 06:14 06:14 WBC 14.6 H RBC 3.10 L Hgb 8.6 L Hct 25.3 L MCV 82 MCH 27.7 MCHC 33.9 RDW 15.6 H Plt Count 96 L Seg Neutrophils % 82.7 H Sodium 134.9 L Potassium 4.0 Chloride 105 Carbon Dioxide 20 L Anion Gap 10 BUN 62 H Creatinine 1.58 H Est GFR ( Amer) > 60 Glucose 80 Calcium 7.8 L Magnesium 2.5 H Total Bilirubin 7.4 H AST 70 H Alkaline Phosphatase 225 H Total Protein 5.7 L Albumin 2.0 L 05/05/20 10:55 Blood Blood Culture (PCR) - Final Serratia Marcescens 05/05/20 11:17 Blood Blood Culture (PCR) - Final Serratia Marcescens 05/05/20 08:30 Creatine Kinase < 20 L Impressions: Abdomen Ultrasound 05/05/20 08:46 IMPRESSION: 1. Diffuse gallbladder wall thickening, pericholecystic fluid, sludge and positive Salgado's sign - these findings are concerning for an acute cholecystitis. 2. The mid and distal abdominal aorta are obscured by overlying bowel. Abdomen MRI 05/05/20 11:39 IMPRESSION: Pericholecystic fluid consistent with cholecystitis. No dilated common bile duct. Parenchymal opacities at the lung bases with possible right lung mass. Chest X-Ray 05/05/20 14:09 IMPRESSION: Cavitary right lower lobe lesion. Recommend CT with contrast. Chest CT 05/05/20 14:49 IMPRESSION: Pulmonary nodules of varying size that exhibit varying degrees of cavitation and tree-in-bud nodular opacities. These patterns of disease can be the result of a number of different conditions, however it is important to note that tuberculosis can manifest as both of these patterns and should be excluded. Guidance Needle Placement CT 05/06/20 14:00 IMPRESSION: CT GUIDED CHOLECYSTOSTOMY. NO IMMEDIATE COMPLICATIONS. Percutaneous Drainage 05/06/20 14:00 IMPRESSION: CT GUIDED CHOLECYSTOSTOMY. NO IMMEDIATE COMPLICATIONS. Assessment & Plan - Diagnosis (1) Acute cholecystitis Is this a current diagnosis for this admission?: Yes Plan: Status post cholecystostomy tube placement. Patient looks reasonably well. Will adjust his morphine for better pain control tonight. Check labs in the morning. Pending gastroenterology evaluation in the morning. - Time Anticipated Discharge Disposition: Home, Self Care Anticipated Discharge Timeframe: within 72 hours
[2020-05-06] MEDS ORDERED: MORPHINE SULFATE 10 MG/ML INJ ONE (21:54)
[2020-05-06] MEDS ORDERED: MORPHINE SULFATE 10 MG/ML INJ IV ONE (22:00)
[2020-05-07] MEDS: PIPERACILLIN SODIUM/TAZOBACTAM 3.375 GM in DEXTROSE 5%-WATER 100 ML IV SCH ×5 (01:17→23:53)
[2020-05-07] MEDS: MORPHINE SULFATE 10 MG/ML INJ IV PRN ×2 (02:00→06:05)
[2020-05-07] MEDS: METRONIDAZOLE 500 MG/NS RTU 500 MG/100 ML RTUPB IV SCH ×3 (05:45→21:23)
[2020-05-07 07:07] LABS: ABSOLUTE EOSINOPHILS # (AUTO) 0.1 10^3/uL (0.0-0.6); ABSOLUTE LYMPHOCYTES (AUTO) 1.1 10^3/uL (0.5-4.7); ABSOLUTE MONOCYTES (AUTO) 1.4 10^3/uL (0.1-1.4); BASOPHILS % (AUTO) 0.3 % (0-2); EOSINOPHILS % (AUTO) 0.4 % (0-6); HEMATOCRIT 22.9 % (37.9-51.0); LYMPHOCYTES % (AUTO) 7.9 % (13-45); MEAN CORPUSCULAR HEMOGLOBIN 27.9 pg (27.0-33.4); MEAN CORPUSCULAR HGB CONC 34.4 g/dL (32.0-36.0); MEAN CORPUSCULAR VOLUME 81 fl (80-97); MONOCYTES % (AUTO) 10.6 % (3-13); PLATELET COUNT 138 10^3/uL (150-450); RED BLOOD COUNT 2.83 10^6/uL (4.35-5.55); RED CELL DISTRIBUTION WIDTH 15.8 % (11.5-14.0); SEGMENTED NEUTROPHILS % (AUTO) 80.8 % (42-78); TOTAL CELLS COUNTED % (AUTO) 100 %; WHITE BLOOD COUNT 13.6 10^3/uL (4.0-10.5)
[2020-05-07 07:09] LABS: HEMOGLOBIN 7.9 g/dL (13.5-17.0)
[2020-05-07 07:35] LABS: ALKALINE PHOSPHATASE 194 U/L (38-126); ANION GAP 9 (5-19); ASPARTATE AMINO TRANSFERASE 65 U/L (17-59); BILIRUBIN,DIRECT 5.4 mg/dL (0.0-0.4); BILIRUBIN,TOTAL 6.2 mg/dL (0.2-1.3); BLOOD UREA NITROGEN 77 mg/dL (7-20); CALCIUM 8.1 mg/dL (8.4-10.2); CARBON DIOXIDE 20 mmol/L (22-30); CHLORIDE 107 mmol/L (98-107); GLUCOSE 106 mg/dL (75-110); POTASSIUM 3.8 mmol/L (3.6-5.0); TOTAL PROTEIN 5.8 g/dL (6.3-8.2)
[2020-05-07] MEDS ORDERED: INFLUENZA QUAD (6MOS+) 2020-21 VAC 0.5 ML SYR IM ONE (08:00)
[2020-05-07] MEDS: HYDROMORPHONE HCL INJ/PF 2 MG/ML AMPULE IV PRN ×4 (10:05→23:51)
[2020-05-07] MEDS: FAMOTIDINE INJ/PF 20 MG/2 ML SDV IV SCH ×2 (10:05→21:23)
[2020-05-07] MEDS: CIPROFLOXACIN 400 MG/D5W RTU 400 MG/200 ML RTUPB IV SCH ×2 (10:05→21:23)
[2020-05-07] MEDS: HEPARIN SOD (PORCINE) 5,000 UNIT/ML 1 ML VIAL SUBCUT SCH ×2 (10:06→21:11)
--- NOTE | 2020-05-07 13:08 | PDOC PROGRESS REPORT ---
Subjective Subjective:: CHRISTOFER ANTHONY is a 34 year old male with no significant past medical history who presents with 2 weeks duration of epigastric pain. He describes the pain as constant, sharp, nonradiating, 10/10 in intensity, aggravated by eating. Initially when the pain started he used to get some relief from bwec-mht-asftyor ibuprofen and Tylenol but the past week nothing has been helping him for the pain. Associated with this he also reports that he feels nauseated, episodes of nonbloody, nonbilious vomiting of ingested matter. He also endorses intermittent fever and decreased appetite. He denies any diarrhea, hematochezia, melena or hematemesis. Patient states that he has lost some weight in the past 2 weeks but denies any cough, chest pain, night sweating, shortness of breath, skin rash. He has no history of travel out of the country, incarceration or any close contact with a chronic cougher. 05/06/2020 I had a long discussion with overnight physician, general surgery, GI, ED about this patient today. General surgery has arranged for the patient to have cholecystostomy tube for drainage with plans for a cholecystectomy at a later date. GI stated they would be available tomorrow for ERCP if this is needed. Patient is continued on broad antibiotics for suspected ascending cholangitis. His creatinine has improved down to 1.58 and his bilirubin is mildly improved down to 7.4. His calcium was quite low and I prescribed 1 g IV calcium. Patient appeared clinically stable when I saw him this morning believe he is high risk to deteriorate if he does not have definitive management of the infection source which is his gallbladder/biliary system. He is no longer vomiting but still has significant right upper quadrant pain. 05/07/2020 Patient is to be doing quite a bit better today since having his cholecystostomy drain placed. He did have an increase in pain overnight and I started IV Dilaudid which we can use instead of morphine. He states after getting a dose of this he feels much better. His creatinine is higher likely due to starting out bacteria when the tube was placed but I would expect his creatinine to significantly improve over the next few days. If it does not, we will need to involve nephrology. Bilirubin is lower. Blood cultures are positive for Serratia marcescens. We can de-escalate antibiotics to ceftriaxone once the patient is a bit more stable and improved clinically. Per surgery, he will still need his gallbladder removed in the future. GI is consulted and should see the patient today at some point. Reason For Visit: ACUTE CHOLECYSTITIS,RIGHT LOWER LOBE CAVITARY LUNG Physical Exam Vital Signs: Temp Pulse Resp BP Pulse Ox 98.5 F 80 24 H 124/70 98 05/07/20 11:30 05/07/20 11:30 05/07/20 07:35 05/07/20 11:30 05/07/20 11:30 Intake & Output 05/06/20 05/07/20 05/08/20 06:59 06:59 06:59 Intake Total 4920 1700 200 Output Total 530 Balance 4920 1170 200 Weight 70.76 kg 74.2 kg Exam: General appearance: PRESENT: no acute distress, well-developed, well-nourished, acutely ill-appearing -[place] male, states his abdomen was hurting more overnight Head exam: PRESENT: atraumatic, normocephalic Eye exam: PRESENT: conjunctiva pink. ABSENT: scleral icterus Mouth exam: PRESENT: moist Respiratory exam: PRESENT: clear to auscultation angie. ABSENT: rales, rhonchi, wheezes Cardiovascular exam: PRESENT: RRR. ABSENT: diastolic murmur, rubs, systolic murmur GI/Abdominal exam: PRESENT: normal bowel sounds, soft, tender right upper quadrant with cholecystostomy drain in place ABSENT: distended, guarding, mass, organolmegaly, rebound Neurological exam: PRESENT: alert, awake, oriented to person, oriented to place, oriented to time, oriented to situation Psychiatric exam: PRESENT: appropriate affect, normal mood Skin exam: PRESENT: dry, intact, warm Results Laboratory Results: 05/07/20 06:16 05/07/20 06:16 05/07/20 05/07/20 06:16 06:16 WBC 13.6 H RBC 2.83 L Hgb 7.9 L Hct 22.9 L MCV 81 MCH 27.9 MCHC 34.4 RDW 15.8 H Plt Count 138 L Seg Neutrophils % 80.8 H Sodium 136.4 L Potassium 3.8 Chloride 107 Carbon Dioxide 20 L Anion Gap 9 BUN 77 H Creatinine 2.19 H Est GFR ( Amer) 41 L Glucose 106 Calcium 8.1 L Total Bilirubin 6.2 H AST 65 H Alkaline Phosphatase 194 H Total Protein 5.8 L Albumin 2.0 L 05/05/20 11:17 Blood Blood Culture (PCR) - Final Serratia Marcescens 05/05/20 11:17 Blood Blood Culture - Final Serratia Marcescens 05/05/20 10:55 Blood Blood Culture (PCR) - Final Serratia Marcescens 05/05/20 10:55 Blood Blood Culture - Final Serratia Marcescens 05/05/20 08:30 Creatine Kinase < 20 L Impressions: Abdomen Ultrasound 05/05/20 08:46 IMPRESSION: 1. Diffuse gallbladder wall thickening, pericholecystic fluid, sludge and positive Salgado's sign - these findings are concerning for an acute cholecystitis. 2. The mid and distal abdominal aorta are obscured by overlying bowel. Abdomen MRI 05/05/20 11:39 IMPRESSION: Pericholecystic fluid consistent with cholecystitis. No dilated common bile duct. Parenchymal opacities at the lung bases with possible right lung mass. Chest X-Ray 05/05/20 14:09 IMPRESSION: Cavitary right lower lobe lesion. Recommend CT with contrast. Chest CT 05/05/20 14:49 IMPRESSION: Pulmonary nodules of varying size that exhibit varying degrees of cavitation and tree-in-bud nodular opacities. These patterns of disease can be the result of a number of different conditions, however it is important to note that tuberculosis can manifest as both of these patterns and should be excluded. Guidance Needle Placement CT 05/06/20 14:00 IMPRESSION: CT GUIDED CHOLECYSTOSTOMY. NO IMMEDIATE COMPLICATIONS. Percutaneous Drainage 05/06/20 14:00 IMPRESSION: CT GUIDED CHOLECYSTOSTOMY. NO IMMEDIATE COMPLICATIONS. Assessment and Plan - Diagnosis (1) Acute cholecystitis Is this a current diagnosis for this admission?: Yes (2) Sepsis Qualifiers: Sepsis type: sepsis due to unspecified organism Sepsis acute organ dysfunction status: with acute organ dysfunction Severe sepsis acute organ dysfunction type: acute renal failure Acute renal failure type: unspecified Severe sepsis shock status: without septic shock Qualified Code(s): A41.9 - Sepsis, unspecified organism; R65.20 - Severe sepsis without septic shock; N17.9 - Acute kidney failure, unspecified Is this a current diagnosis for this admission?: Yes (3) Acute kidney injury Is this a current diagnosis for this admission?: Yes (4) Cavitary lesion of lung Is this a current diagnosis for this admission?: Yes (5) Elevated bilirubin Is this a current diagnosis for this admission?: Yes (6) Gram-negative bacteremia Is this a current diagnosis for this admission?: Yes (7) Hyponatremia Is this a current diagnosis for this admission?: Yes (8) Serratia septicemia Is this a current diagnosis for this admission?: Yes - Plan Summary Summary: (1) Acute cholecystitis Is this a current diagnosis for this admission?: Yes Plan: Per Previous Physician: "Patient presents with 2 weeks duration of abdominal pain Salgado sign is positive Abdominal ultrasound shows diffuse gallbladder wall thickening with pericholecystic fluid, CBD was 5 mm MRI abdomen also showed pericholecystic fluid consistent with cholecystitis, there was no dilated common bile duct Started him on ciprofloxacin and metronidazole We will keep him n.p.o. Continue IV hydration Follow-up with culture and sensitivity results Surgery on board and following" IR placed cholecystostomy tube on 05/06, drained yellow/brown fluid General surgery following: Patient will need cholecystectomy in the future Run antibiotics IV fluids Biliary drain placed by IR GI consulted: Possible ERCP if needed on 05/07 Blood cultures positive for Serratia marcescens, multiple sensitivities (2) Sepsis Qualifiers: Sepsis type: sepsis due to unspecified organism Sepsis acute organ dysfunction status: with acute organ dysfunction Severe sepsis acute organ dysfunction type: acute renal failure Acute renal failure type: unspecified Severe sepsis shock status: without septic shock Qualified Code(s): A41.9 - Sepsis, unspecified organism; R65.20 - Severe sepsis without septic shock; N17.9 - Acute kidney failure, unspecified Is this a current diagnosis for this admission?: Yes Plan: Source is ascending cholangitis from acute cholecystitis and possible choledocholithiasis Right antibiotics IV fluids Hemodynamic monitoring Biliary drain Blood cultures positive for Serratia marcescens (3) Acute kidney injury Is this a current diagnosis for this admission?: Yes Plan: Per Previous Physician: "BUN/creatinine on this encounter was 59/1.61 Patient has no baseline to compare with Continue IV hydration Renally dose medication and avoid nephrotoxic's Monitor BMP" Due to sepsis/infection IV fluids Trend BMP Improving (4) Cavitary lesion of lung Is this a current diagnosis for this admission?: Yes Plan: Per Previous Physician: "MRI abdomen which was done for work-up of cholecystitis showed incidental finding of cavitary lesion right lower lung base Patient denies any respiratory symptoms Has no history of incarceration, contact history with chronic cough or or other constitutional symptoms Chest x-ray showed right lower lobe cavitary lesion CT chest was done at the ED and showed pulmonary nodules with varying degree of cavitation Placed him on airborne isolation Currently he is on IV antibiotic Follow-up with AFB culture and QuantiFERON gold Follow-up with fungal battery" Do not suspect TB given patient does not have any history of TB exposure and has no risk factors for exposure for TB such as travel outside the country, living in a usp's or usp 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, noting that he becomes severely ill when he inhales this dust and is often unable to work the next day after an exposure Follow-up with pulmonology Follow-up AFB/QuantiFERON gold though suspect these will be negative (5) Elevated bilirubin Is this a current diagnosis for this admission?: Yes (6) Gram-negative bacteremia Is this a current diagnosis for this admission?: Yes Plan: Per Previous Physician: "Blood culture grew gram-negative rods Has leukocytosis of 16k with left shift Patient has been hemodynamically stable Patient is currently on ciprofloxacin Follow-up with sensitivity and adjust antibiotic as necessary Closely monitor vital signs for signs of shock" (7) Hyponatremia Is this a current diagnosis for this admission?: Yes Plan: Per Previous Physician: "Serum sodium 131 on this presentation Likely due to volume depletion due to poor oral intake Continue IV hydration and monitor BMP" IV fluids Trend BMP Improving - Time Time Spent with patient: 25-34 minutes Medications reviewed and adjusted accordingly: Yes Anticipated Discharge Disposition: Home, Self Care Anticipated Discharge Timeframe: within 72 hours - Inpatient Certification Based on my medical assessment, after consideration of the patient's comorbidities, presenting symptoms, or acuity I expect that the services needed warrant INPATIENT care.: Yes I certify that my determination is in accordance with my understanding of Medicare's requirements for reasonable and necessary INPATIENT services [42 CFR 412.3e].: Yes Medical Necessity: Significant Comorbidiites Make Outpatient Treatment Too Risky, Need Close Monitoring Due to Risk of Patient Decompensation, Need For IV Fluids, Need for IV Antibiotics, Risk of Complication if Not Cared For in Hospital, Risk of Diagnosis Which Will Require Inpatient Eval/Care/Monitoring
--- NOTE | 2020-05-07 13:21 | PDOC PROGRESS REPORT ---
Subjective Date:: 05/07/20 Reason For Visit: ACUTE CHOLECYSTITIS,RIGHT LOWER LOBE CAVITARY LUNG Patient states he feels better and was able to get up and void without difficulty. Physical Exam Vital Signs: Temp Pulse Resp BP Pulse Ox 98.5 F 80 24 H 124/70 98 05/07/20 11:30 05/07/20 11:30 05/07/20 07:35 05/07/20 11:30 05/07/20 11:30 Intake & Output 05/06/20 05/07/20 05/08/20 06:59 06:59 06:59 Intake Total 4920 1700 200 Output Total 530 Balance 4920 1170 200 Weight 70.76 kg 74.2 kg General appearance: PRESENT: no acute distress GI/Abdominal exam: PRESENT: other - Moderately tender to palpation, but no. Cholecystostomy tube aspirated and flushed successfully. Results Laboratory Results: 05/07/20 06:16 05/07/20 06:16 05/07/20 05/07/20 06:16 06:16 WBC 13.6 H RBC 2.83 L Hgb 7.9 L Hct 22.9 L MCV 81 MCH 27.9 MCHC 34.4 RDW 15.8 H Plt Count 138 L Seg Neutrophils % 80.8 H Sodium 136.4 L Potassium 3.8 Chloride 107 Carbon Dioxide 20 L Anion Gap 9 BUN 77 H Creatinine 2.19 H Est GFR ( Amer) 41 L Glucose 106 Calcium 8.1 L Total Bilirubin 6.2 H AST 65 H Alkaline Phosphatase 194 H Total Protein 5.8 L Albumin 2.0 L 05/05/20 11:17 Blood Blood Culture (PCR) - Final Serratia Marcescens 05/05/20 11:17 Blood Blood Culture - Final Serratia Marcescens 05/05/20 10:55 Blood Blood Culture (PCR) - Final Serratia Marcescens 05/05/20 10:55 Blood Blood Culture - Final Serratia Marcescens 05/05/20 08:30 Creatine Kinase < 20 L Impressions: Abdomen Ultrasound 05/05/20 08:46 IMPRESSION: 1. Diffuse gallbladder wall thickening, pericholecystic fluid, sludge and positive Salgado's sign - these findings are concerning for an acute cholecystitis. 2. The mid and distal abdominal aorta are obscured by overlying bowel. Abdomen MRI 05/05/20 11:39 IMPRESSION: Pericholecystic fluid consistent with cholecystitis. No dilated common bile duct. Parenchymal opacities at the lung bases with possible right lung mass. Chest X-Ray 05/05/20 14:09 IMPRESSION: Cavitary right lower lobe lesion. Recommend CT with contrast. Chest CT 05/05/20 14:49 IMPRESSION: Pulmonary nodules of varying size that exhibit varying degrees of cavitation and tree-in-bud nodular opacities. These patterns of disease can be the result of a number of different conditions, however it is important to note that tuberculosis can manifest as both of these patterns and should be excluded. Guidance Needle Placement CT 05/06/20 14:00 IMPRESSION: CT GUIDED CHOLECYSTOSTOMY. NO IMMEDIATE COMPLICATIONS. Percutaneous Drainage 05/06/20 14:00 IMPRESSION: CT GUIDED CHOLECYSTOSTOMY. NO IMMEDIATE COMPLICATIONS. Assessment & Plan - Diagnosis (1) Acute cholecystitis Is this a current diagnosis for this admission?: Yes Plan: Impression: Patient is 1 day status post percutaneous cholecystostomy tube drainage with some clinical improvement and modest decline in total bilirubin. Plan: 1. Explained the patient if he continues to improve clinically, he will likely go home with drain in place, on p.o. antibiotics. 2. Conversely if he deteriorates, patient may require exploratory surgery. We would prefer to perform cholecystectomy after sepsis has stabilized. 3. We will continue to follow with you (2) Cavitary lesion of lung Is this a current diagnosis for this admission?: Yes (3) Elevated bilirubin Is this a current diagnosis for this admission?: Yes - Time Anticipated Discharge Disposition: Home, Self Care Anticipated Discharge Timeframe: within 24 hours
[2020-05-07] MEDS: NORMAL SALINE 1000 ML 1,000 ML IV PRN (15:00)
--- NOTE | 2020-05-07 15:34 | PDOC CONSULTATION ---
Consultation Consult Date: 05/07/20 Provider Consulted: BLADE MARSHALL History of Present Illness Admission Date/PCP: 05/05/20 21:53 History of Present Illness: CHRISTOFER ANTHONY is a 34 year old male Patient who was admitted to the hospital on 05/05/2020 with acute cholecystitis. Consultation was requested for possible ERCP. Patient had been having upper abdominal pain for about 2 weeks prior to being admitted. He has a constant abdominal discomfort which gets worse especially when he eats greasy foods. There was nausea and occasional vomiting. He has no previous history of liver disease. On presentation his ultrasound showed diffuse gallbladder wall thickening with pericholecystic fluid, sludge and positive Salgado sign. There was no biliary dilation which was confirmed at a subsequent MRCP. His MRI showed multiple opacities at the lung bases. On admission he was in renal failure with a creatinine of 1.7 and a BUN of 63. His total bilirubin was 7.9 with a direct of 7, AST 101, ALT 35 and alkaline phosphatase of 343. On 05/06/2020 his bilirubin was stable 7.4 with persistently elevated LFTs. His lipase was normal. He had a cholecystostomy tube placed yesterday by the radiologist and today his bilirubin is down to 6.2. Overall he is doing better since the cholecystostomy yesterday. His abdominal p ain is a lot better but he has some discomfort around the surgical site. There is no nausea or vomiting. He is hungry Social History Lives with: Family Smoking Status: Current Every Day Smoker Electronic Cigarette use?: No Frequency of Alcohol Use: None Hx Recreational Drug Use: No Drugs: None Hx Prescription Drug Abuse: No - Advance Directive Resuscitation Status: Full Code Family History Family History: Reviewed & Not Pertinent Parental Family History Reviewed: No Children Family History Reviewed: NA Sibling(s) Family History Reviewed.: NA Medication/Allergy Home Medications: Ibuprofen [Motrin 800 mg Tablet] 800 mg PO TIDP PRN 05/06/20 Allergies/Adverse Reactions: No Known Allergies Allergy (Unverified 05/05/20 08:39) Review of Systems All systems: reviewed and no additional remarkable complaints except as stated Physical Exam Vital Signs: Temp Pulse Resp BP Pulse Ox 98.5 F 90 24 H 124/70 98 05/07/20 11:30 05/07/20 14:00 05/07/20 07:35 05/07/20 11:30 05/07/20 11:30 Intake & Output 05/06/20 05/07/20 05/08/20 06:59 06:59 06:59 Intake Total 4920 1700 200 Output Total 530 Balance 4920 1170 200 Weight 70.76 kg 74.2 kg Exam: General: Patient is alert and looks well. HEENT: There is no pallor but he is jaundiced. PERRLA. Oropharynx normal Respiratory: No chest deformity. No respiratory distress. Chest wall palpitation was unremarkable. Breath sounds were normal Cardiovascular: Heart sounds 1 and 2 normal with no murmurs. Abdominal: Not distended. Soft and tender in the right upper quadrant around the cholecystostomy tube. Liver and spleen not palpable. No ascites demonstrated. Bowel sounds active. Rectal examination was deferred. Extremities: No edema Neurological: Alert and oriented x4. Grossly nonfocal. Normal speech Skin: No significant rash Psychological: Normal affect Results Laboratory Results: 05/07/20 06:16 05/07/20 06:16 05/07/20 05/07/20 06:16 06:16 WBC 13.6 H RBC 2.83 L Hgb 7.9 L Hct 22.9 L MCV 81 MCH 27.9 MCHC 34.4 RDW 15.8 H Plt Count 138 L Seg Neutrophils % 80.8 H Sodium 136.4 L Potassium 3.8 Chloride 107 Carbon Dioxide 20 L Anion Gap 9 BUN 77 H Creatinine 2.19 H Est GFR ( Amer) 41 L Glucose 106 Calcium 8.1 L Total Bilirubin 6.2 H AST 65 H Alkaline Phosphatase 194 H Total Protein 5.8 L Albumin 2.0 L 05/05/20 11:17 Blood Blood Culture (PCR) - Final Serratia Marcescens 05/05/20 11:17 Blood Blood Culture - Final Serratia Marcescens 05/05/20 10:55 Blood Blood Culture (PCR) - Final Serratia Marcescens 05/05/20 10:55 Blood Blood Culture - Final Serratia Marcescens 05/05/20 08:30 Creatine Kinase < 20 L Impressions: Abdomen Ultrasound 05/05/20 08:46 IMPRESSION: 1. Diffuse gallbladder wall thickening, pericholecystic fluid, sludge and positive Salgado's sign - these findings are concerning for an acute cholecystitis. 2. The mid and distal abdominal aorta are obscured by overlying bowel. Abdomen MRI 05/05/20 11:39 IMPRESSION: Pericholecystic fluid consistent with cholecystitis. No dilated common bile duct. Parenchymal opacities at the lung bases with possible right lung mass. Chest X-Ray 05/05/20 14:09 IMPRESSION: Cavitary right lower lobe lesion. Recommend CT with contrast. Chest CT 05/05/20 14:49 IMPRESSION: Pulmonary nodules of varying size that exhibit varying degrees of cavitation and tree-in-bud nodular opacities. These patterns of disease can be the result of a number of different conditions, however it is important to note that tuberculosis can manifest as both of these patterns and should be excluded. Guidance Needle Placement CT 05/06/20 14:00 IMPRESSION: CT GUIDED CHOLECYSTOSTOMY. NO IMMEDIATE COMPLICATIONS. Percutaneous Drainage 05/06/20 14:00 IMPRESSION: CT GUIDED CHOLECYSTOSTOMY. NO IMMEDIATE COMPLICATIONS. Assessment & Plan - Diagnosis (1) Abnormal liver function tests Is this a current diagnosis for this admission?: Yes Plan: His abnormal liver function test is most likely related to his cholecystitis. He has no dilated biliary tree, no gallstones and no evidence for pancreatitis. He has had persistent pain for the last 2 weeks and his imagings are consistent with acute cholecystitis. There is no indication for ERCP at this time. I will suggest an intraoperative cholangiogram when he has his cholecystectomy. (2) Acute cholecystitis Is this a current diagnosis for this admission?: Yes (3) Cavitary lesion of lung Is this a current diagnosis for this admission?: Yes (4) Elevated bilirubin Is this a current diagnosis for this admission?: Yes (5) Sepsis Qualifiers: Sepsis type: sepsis due to unspecified organism Sepsis acute organ dysfunction status: with acute organ dysfunction Severe sepsis acute organ dysfunction type: acute renal failure Acute renal failure type: unspecified Severe sepsis shock status: without septic shock Qualified Code(s): A41.9 - Sepsis, unspecified organism; R65.20 - Severe sepsis without septic shock; N17.9 - Acute kidney failure, unspecified Is this a current diagnosis for this admission?: Yes
[2020-05-08] MEDS: HYDROMORPHONE HCL INJ/PF 2 MG/ML AMPULE IV PRN ×3 (04:04→14:44)
[2020-05-08] MEDS: NORMAL SALINE 1000 ML 1,000 ML IV PRN ×3 (04:05→23:30)
[2020-05-08] MEDS: METRONIDAZOLE 500 MG/NS RTU 500 MG/100 ML RTUPB IV SCH (05:38)
[2020-05-08] MEDS: PIPERACILLIN SODIUM/TAZOBACTAM 3.375 GM in DEXTROSE 5%-WATER 100 ML IV SCH ×3 (05:39→18:43)
[2020-05-08 09:12] LABS: ABSOLUTE EOSINOPHILS # (AUTO) 0.1 10^3/uL (0.0-0.6); ABSOLUTE LYMPHOCYTES (AUTO) 1.8 10^3/uL (0.5-4.7); ABSOLUTE MONOCYTES (AUTO) 1.2 10^3/uL (0.1-1.4); ABSOLUTE NEUT (AUTO) 12.2 10^3/uL (1.7-8.2); BASOPHILS % (AUTO) 0.3 % (0-2); EOSINOPHILS % (AUTO) 0.4 % (0-6); HEMATOCRIT 21.6 % (37.9-51.0); LYMPHOCYTES % (AUTO) 11.6 % (13-45); MEAN CORPUSCULAR HEMOGLOBIN 27.6 pg (27.0-33.4); MEAN CORPUSCULAR HGB CONC 34.7 g/dL (32.0-36.0); MEAN CORPUSCULAR VOLUME 80 fl (80-97); PLATELET COUNT 191 10^3/uL (150-450); RED CELL DISTRIBUTION WIDTH 15.4 % (11.5-14.0); SEGMENTED NEUTROPHILS % (AUTO) 79.7 % (42-78); TOTAL CELLS COUNTED % (AUTO) 100 %; WHITE BLOOD COUNT 15.3 10^3/uL (4.0-10.5)
[2020-05-08 09:26] LABS: HEMOGLOBIN 7.5 g/dL (13.5-17.0)
[2020-05-08 09:35] LABS: ALBUMIN 2.1 g/dL (3.5-5.0); ALKALINE PHOSPHATASE 169 U/L (38-126); ASPARTATE AMINO TRANSFERASE 53 U/L (17-59); BILIRUBIN,TOTAL 6.9 mg/dL (0.2-1.3); TOTAL PROTEIN 6.1 g/dL (6.3-8.2)
[2020-05-08] MEDS: HEPARIN SOD (PORCINE) 5,000 UNIT/ML 1 ML VIAL SUBCUT SCH ×2 (09:50→21:22)
[2020-05-08] MEDS: FAMOTIDINE INJ/PF 20 MG/2 ML SDV IV SCH ×2 (09:51→21:22)
--- NOTE | 2020-05-08 10:59 | PDOC PROGRESS REPORT ---
Subjective Date:: 05/08/20 Reason For Visit: ACUTE CHOLECYSTITIS,RIGHT LOWER LOBE CAVITARY LUNG States he feels better. No fever. Physical Exam Vital Signs: Temp Pulse Resp BP Pulse Ox 98.3 F 76 21 H 130/81 H 100 05/08/20 08:02 05/08/20 08:02 05/08/20 08:02 05/08/20 08:02 05/08/20 08:02 Intake & Output 05/07/20 05/08/20 05/09/20 06:59 06:59 06:59 Intake Total 2700 3162 Output Total 530 300 Balance 2170 2862 Weight 74.2 kg 77 kg General appearance: PRESENT: no acute distress GI/Abdominal exam: PRESENT: other - Very tender right upper quadrant; drain jinny ve closed off. Results Laboratory Results: 05/08/20 08:57 05/08/20 05/08/20 08:57 08:57 WBC 15.3 H RBC 2.70 L Hgb 7.5 L Hct 21.6 L MCV 80 MCH 27.6 MCHC 34.7 RDW 15.4 H Plt Count 191 Seg Neutrophils % 79.7 H Total Bilirubin 6.9 H AST 53 Alkaline Phosphatase 169 H Total Protein 6.1 L Albumin 2.1 L 05/05/20 11:17 Blood Blood Culture (PCR) - Final Serratia Marcescens 05/05/20 11:17 Blood Blood Culture - Final Serratia Marcescens 05/05/20 10:55 Blood Blood Culture (PCR) - Final Serratia Marcescens 05/05/20 10:55 Blood Blood Culture - Final Serratia Marcescens 05/05/20 08:30 Creatine Kinase < 20 L Impressions: Abdomen Ultrasound 05/05/20 08:46 IMPRESSION: 1. Diffuse gallbladder wall thickening, pericholecystic fluid, sl udge and positive Salgado's sign - these findings are concerning for an acute cholecystitis. 2. The mid and distal abdominal aorta are obscured by overlying bowel. Abdomen MRI 05/05/20 11:39 IMPRESSION: Pericholecystic fluid consistent with cholecystitis. No dilated c ommon bile duct. Parenchymal opacities at the lung bases with possible right lung mass. Chest X-Ray 05/05/20 14:09 IMPRESSION: Cavitary right lower lobe lesion. Recommend CT with contrast. Chest CT 05/05/20 14:49 IMPRESSION: Pulmonary nodules of varying size that exhibit varying degrees of cavitation and tree-in-bud nodular opacities. These patterns of disease can be the result of a number of different conditions, however it is important to note that tuberculosis can manifest as both of these patterns and should be excluded. Guidance Needle Placement CT 05/06/20 14:00 IMPRESSION: CT GUIDED CHOLECYSTOSTOMY. NO IMMEDIATE COMPLICATIONS. Percutaneous Drainage 05/06/20 14:00 IMPRESSION: CT GUIDED CHOLECYSTOSTOMY. NO IMMEDIATE COMPLICATIONS. Assessment & Plan - Diagnosis (1) Acute cholecystitis Is this a current diagnosis for this admission?: Yes Plan: Impression: Hospital day 4 for patient with acute cholecystitis, with persisting pain, leukocytosis, elevated total bilirubin despite IV fluids, intravenous antibiotics, and cholecystostomy drain. Await results of TB studies Discussion: 1. I am concerned patient is not significantly better despite all of the above interventions. I believe he will require cholecystectomy laparoscopic possible open, with possible drains this hospitalization. 2. Will discuss with medical team. 3. Await results of TB studies. (2) Cavitary lesion of lung Is this a current diagnosis for this admission?: Yes (3) Elevated bilirubin Is this a current diagnosis for this admission?: Yes - Time Anticipated Discharge Disposition: Home, Self Care Anticipated Discharge Timeframe: within 24 hours
[2020-05-08 12:56] LABS: ALBUMIN 2.2 g/dL (3.5-5.0); ALKALINE PHOSPHATASE 173 U/L (38-126); ANION GAP 9 (5-19); ASPARTATE AMINO TRANSFERASE 55 U/L (17-59); BILIRUBIN,DIRECT 5.9 mg/dL (0.0-0.4); BILIRUBIN,TOTAL 6.9 mg/dL (0.2-1.3); BLOOD UREA NITROGEN 75 mg/dL (7-20); CALCIUM 7.9 mg/dL (8.4-10.2); CARBON DIOXIDE 18 mmol/L (22-30); CHLORIDE 109 mmol/L (98-107); GLUCOSE 98 mg/dL (75-110); POTASSIUM 3.5 mmol/L (3.6-5.0); TOTAL PROTEIN 6.5 g/dL (6.3-8.2)
[2020-05-08] MEDS: ACETAMINOPHEN 325 MG TABLET PO PRN (16:39)
[2020-05-08] MEDS: MORPHINE SULFATE 10 MG/ML INJ IV PRN ×2 (16:40→21:22)
--- NOTE | 2020-05-08 16:59 | PDOC PROGRESS REPORT ---
Subjective Date:: 05/08/20 Subjective:: No adverse events overnight. No new complaints. No respiratory symptoms at all . 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 Reason For Visit: ACUTE CHOLECYSTITIS,RIGHT LOWER LOBE CAVITARY LUNG Physical Exam Vital Signs: Temp Pulse Resp BP Pulse Ox 98.6 F 86 18 129/68 H 95 05/08/20 11:41 05/08/20 11:41 05/08/20 11:41 05/08/20 11:41 05/08/20 11:41 Intake & Output 05/07/20 05/08/20 05/09/20 06:59 06:59 06:59 Intake Total 2700 3162 1000 Output Total 530 300 Balance 2170 2862 1000 Weight 74.2 kg 77 kg General appearance: PRESENT: no acute distress, well-developed, well-nourished, acutely ill-appearing Head exam: PRESENT: atraumatic, normocephalic Eye exam: PRESENT: conjunctiva pink. ABSENT: scleral icterus Mouth exam: PRESENT: moist Respiratory exam: PRESENT: clear to auscultation angie. ABSENT: rales, rhonchi, wheezes Cardiovascular exam: PRESENT: RRR. ABSENT: diastolic murmur, rubs, systolic murmur GI/Abdominal exam: PRESENT: normal bowel sounds, soft, tender right upper quadrant with cholecystostomy drain in place ABSENT: distended, guarding, mass, organolmegaly, rebound Neurological exam: PRESENT: alert, awake, oriented to person, oriented to place, oriented to time, oriented to situation Psychiatric exam: PRESENT: appropriate affect, normal mood Skin exam: PRESENT: dry, intact, warm Results Laboratory Results: 05/08/20 08:57 05/08/20 12:18 05/08/20 05/08/20 05/08/20 08:57 08:57 12:18 WBC 15.3 H RBC 2.70 L Hgb 7.5 L Hct 21.6 L MCV 80 MCH 27.6 MCHC 34.7 RDW 15.4 H Plt Count 191 Seg Neutrophils % 79.7 H Sodium 136.0 L Potassium 3.5 L Chloride 109 H Carbon Dioxide 18 L Anion Gap 9 BUN 75 H Creatinine 2.22 H Est GFR ( Amer) 41 L Glucose 98 Calcium 7.9 L Total Bilirubin 6.9 H 6.9 H AST 53 55 Alkaline Phosphatase 169 H 173 H Total Protein 6.1 L 6.5 Albumin 2.1 L 2.2 L 05/05/20 08:30 Creatine Kinase < 20 L Impressions: Abdomen Ultrasound 05/05/20 08:46 IMPRESSION: 1. Diffuse gallbladder wall thickening, pericholecystic fluid, sludge and positive Salgado's sign - these findings are concerning for an acute cholecystitis. 2. The mid and distal abdominal aorta are obscured by overlying bowel. Abdomen MRI 05/05/20 11:39 IMPRESSION: Pericholecystic fluid consistent with cholecystitis. No dilated common bile duct. Parenchymal opacities at the lung bases with possible right lung mass. Chest X-Ray 05/05/20 14:09 IMPRESSION: Cavitary right lower lobe lesion. Recommend CT with contrast. Chest CT 05/05/20 14:49 IMPRESSION: Pulmonary nodules of varying size that exhibit varying degrees of cavitation and tree-in-bud nodular opacities. These patterns of disease can be the result of a number of different conditions, however it is important to note that tuberculosis can manifest as both of these patterns and should be excluded. Guidance Needle Placement CT 05/06/20 14:00 IMPRESSION: CT GUIDED CHOLECYSTOSTOMY. NO IMMEDIATE COMPLICATIONS. Percutaneous Drainage 05/06/20 14:00 IMPRESSION: CT GUIDED CHOLECYSTOSTOMY. NO IMMEDIATE COMPLICATIONS. Assessment and Plan - Diagnosis (1) Acute cholecystitis Is this a current diagnosis for this admission?: Yes (2) Acute kidney injury Is this a current diagnosis for this admission?: Yes (3) Cavitary lesion of lung Is this a current diagnosis for this admission?: Yes (4) Elevated bilirubin Is this a current diagnosis for this admission?: Yes (5) Gram-negative bacteremia Is this a current diagnosis for this admission?: Yes (6) Hyponatremia Is this a current diagnosis for this admission?: Yes (7) Sepsis Qualifiers: Sepsis type: sepsis due to unspecified organism Sepsis acute organ dysfunction status: with acute organ dysfunction Severe sepsis acute organ dysfunction type: acute renal failure Acute renal failure type: unspecified Severe sepsis shock status: without septic shock Qualified Code(s): A41.9 - Sepsis, unspecified organism; R65.20 - Severe sepsis without septic shock; N17.9 - Acute kidney failure, unspecified Is this a current diagnosis for this admission?: Yes (8) Serratia septicemia Is this a current diagnosis for this admission?: Yes - Plan Summary Summary: His creatinine is not getting better, in fact it is getting a little bit worse. His bilirubin is not getting better. His alkaline phosphatase is not getting better. His white blood cell count is not getting better. I do not think any of his acute issues are going to improve until his gallbladder is removed. He continues on antibiotics. He has a biliary drain in place. I think he needs cholecystectomy for source control. I talked about this with Dr. Chavez who agrees. He has a cavitary lesion in the lung but I do not think that this patient has TB, I agree with the previous assessment that is likely from some sort of exposure, likely occupational. TB tests are all pending. He has no respiratory symptoms whatsoever. Patient will be n.p.o. after midnight tonight in anticipation of a possible surgery tomorrow. - Time Time Spent with patient: 15-24 minutes Anticipated Discharge Disposition: unknown Anticipated Discharge Timeframe: unknown
[2020-05-09] MEDS: PIPERACILLIN SODIUM/TAZOBACTAM 3.375 GM in DEXTROSE 5%-WATER 100 ML IV SCH ×4 (00:11→17:55)
[2020-05-09] MEDS: MORPHINE SULFATE 10 MG/ML INJ IV PRN ×2 (01:39→05:42)
[2020-05-09] MEDS ORDERED: BUPIVACAINE HCL 0.25 % INJ/PF (2.5 MG/1 ML) 30 ML VIAL ONE (07:55)
[2020-05-09] MEDS ORDERED: FENTANYL CITRATE INJ/PF 250 MCG/5 ML AMPULE ONE (08:19)
[2020-05-09] MEDS ORDERED: PROPOFOL INJ 200 MG/20 ML VIAL IV ONE (08:20)
[2020-05-09] MEDS ORDERED: MORPHINE SULFATE 10 MG/ML INJ ONE (08:20)
[2020-05-09] MEDS ORDERED: ONDANSETRON HCL INJ/PF 4 MG/2 ML SDV ONE (08:20)
[2020-05-09] MEDS ORDERED: MIDAZOLAM 2 MG/2 ML INJ ONE (08:20)
[2020-05-09] MEDS ORDERED: SUGAMMADEX SODIUM 200 MG/2 ML SDV IV ONE (08:20)
[2020-05-09] MEDS ORDERED: DEXAMETHASONE SOD PHOSPHATE INJ 4 MG/1 ML VIAL ONE (08:20)
[2020-05-09] MEDS ORDERED: FENTANYL CITRATE INJ/PF 100 MCG/2 ML AMPUL ONE ×2 (09:39→10:32)
--- NOTE | 2020-05-09 10:07 | RADIOLOGY REPORT (SQ) ---
EXAM DESCRIPTION: CHOLANGIOGRAM OPERATIVE; NO CHG FLUORO IMAGES COMPLETED DATE/TIME: 05/09/2020 9:56 am REASON FOR STUDY: IOC COMPARISON: None. FLUOROSCOPY TIME: 1.5 minutes. 7 images saved to PACS. TECHNIQUE: 7 images were obtained from an intraoperative cholangiogram. LIMITATIONS: None. FINDINGS: There is opacification of the bile ducts, cystic duct remnants and second portion of the d uodenum without evidence of fixed filling defect or significant extravasation. IMPRESSION: INTRAOPERATIVE CHOLANGIOGRAM. COMMENT: Quality ID 145: Final reports for procedures using fluoroscopy that document radiation exp osure indices, or exposure time and number of fluorographic images (if radiation exposure indices are not available) TECHNICAL DOCUMENTATION: JOB ID: [id number] 2010 [employer]- All Rights Reserved Reading location - IP/workstation name: [email or web address]
--- NOTE | 2020-05-09 10:07 | RADIOLOGY REPORT (SQ) ---
EXAM DESCRIPTION: CHOLANGIOGRAM OPERATIVE; NO CHG FLUORO IMAGES COMPLETED DATE/TIME: 05/09/2020 9:56 am REASON FOR STUDY: IOC COMPARISON: None. FLUOROSCOPY TIME: 1.5 minutes. 7 images saved to PACS. TECHNIQUE: 7 images were obtained from an intraoperative cholangiogram. LIMITATIONS: None. FINDINGS: There is opacification of the bile ducts, cystic duct remnants and second portion of the d uodenum without evidence of fixed filling defect or significant extravasation. IMPRESSION: INTRAOPERATIVE CHOLANGIOGRAM. COMMENT: Quality ID 145: Final reports for procedures using fluoroscopy that document radiation exp osure indices, or exposure time and number of fluorographic images (if radiation exposure indices are not available) TECHNICAL DOCUMENTATION: JOB ID: [id number] 2010 [employer]- All Rights Reserved Reading location - IP/workstation name: [email or web address]
[2020-05-09] MEDS: FENTANYL CITRATE INJ/PF 100 MCG/2 ML AMPUL IV PRN ×2 (10:32→10:37)
[2020-05-09] MEDS ORDERED: OXYCODONE-ACETAMINOPHEN 5-325 MG TABLET PO PRN ×2 (10:36)
[2020-05-09] MEDS ORDERED: DIPHENHYDRAMINE HCL 50 MG/ML VIAL IV PRN (10:36)
[2020-05-09] MEDS ORDERED: MORPHINE SULFATE 10 MG/ML INJ IV PRN (10:36)
[2020-05-09] MEDS ORDERED: FENTANYL CITRATE INJ/PF 100 MCG/2 ML AMPUL IV PRN ×2 (10:36)
[2020-05-09] MEDS ORDERED: MEPERIDINE HCL/PF INJ 25 MG/1 ML DISP.SYRIN IV PRN (10:36)
[2020-05-09] MEDS ORDERED: PROMETHAZINE HCL INJ 25 MG/1 ML VIAL IV PRN ×2 (10:36)
--- NOTE | 2020-05-09 10:43 | Operative Report ---
Operative Report DATE OF SURGERY: 05/09/20 PREOPERATIVE DIAGNOSIS: 1. Acute cholecystitis with cholelithiasis. 2. Windham mandi liver function studies. 3. Status post cholecystostomy tube placement POSTOPERATIVE DIAGNOSIS: Same with normal intraoperative cholangiogram OPERATION: 1. Removal of cholecystostomy tube. 2. Laparoscopic cholecystectomy. 3. Intraoperative cholangiography with interpretation of intraoperative cholangiography. 4. Drainage of subhepatic space SURGEON: HUNTER MENDOZA ANESTHESIA: GA TISSUE REMOVED OR ALTERED: 1 gallbladder with contents COMPLICATIONS: None ESTIMATED BLOOD LOSS: 15 cc INTRAOPERATIVE FINDINGS: See below PROCEDURE: Indications for operation The patient is a 33-year-old Afro-[place] male who presented to the emergency department 4-1/2 days ago complaining of abdominal pain nausea anorexia. He was evaluated found to have elevated liver function studies, leukocytosis, gall bladder on ultrasonography with dilatation, thickened gallbladder wall consistent with acute cholecystitis. His total bilirubin was 7. Patient underwent MRCP which was interpreted as no evidence of obstruction of the biliary ductal system. The patient was admitted to the medicine service with surgery consulting. He was kept n.p.o., on IV fluids, intravenous biotics. Patient continued to have pain, and elevation of his liver function studies. He underwent IR directed percutaneous hepatic cholecystostomy drainage. Patient drained bile effectively, however for another 3 days he remained tender needing narcotics, febrile up to 102, persisting leukocytosis, persisting elevated total bilirubin, metabolic acidosis and progressive renal insufficiency. Patient was felt to be failing medical management, and was offered exploratory laparoscopy, possible laparotomy for cholecystectomy. This was discussed with the patient at length. He expresses understanding and agreed to proceed. The patient was taken to the operating room where general anesthesia was induced. The abdomen was exposed, previous cholecystostomy tube drain removed uneventfully. The abdomen was then prepped and draped in a sterile fashion with Betadine. Instrumentation set up for laparoscopic cholecystectomy. Surgical plan surgical timeout were conducted. Markings were made on the skin for for port laparoscopy. All sites anesthetized with 1% plain lidocaine. A vertical incision was made over the umbilicus with a 15 blade, Veress needle inserted the peritoneal cavity pneumoperitoneum was established. Veress needle removed, 5 mm port inserted and a 5 mm flexible scope was inserted. There was evidence of bile staining in the right upper quadrant, with a distended gallbladder, edematous, and bile-stained. 3 additional ports were placed under direct visualization. There was no evidence of vascular or visceral injury. Adhesions between the gallbladder and the gastroduodenal area were taken down sharply under excellent visualization. The gallbladder was grasped at the fundus and infundibulum and elevated out of the tera hepatis. We cleaned up the infundibulum of the gallbladder, opened up the triangle of Calot, obtained the critical view. The cystic artery was in its usual location with several small branch points. These branches were divided after clipping. We now brought onto the field a disposable percutaneous cholangiogram catheter. A jessica was made in the right upper quadrant, cholangiogram with fine trocar threaded into the abdominal cavity under direct visualization. Trocar removed, and the cystic duct clipped on the gallbladder side. An opening was made in the cystic duct with laparoscopic scissors. The free end of the cholangiogram catheter was threaded into the duct for 1.5 cm. The catheter was secured with a clip, instrumentation removed from the peritoneal cavity, patient leveled out, and a series of cholangiograms were shot with full-strength contrast. The cholangiogram demonstrated beautiful visualization of the intra and extrahepatic biliary tree with rapid egress of contrast into the duodenum. There was no evidence of leak or extravasation. There was however a subtle, less than 1 cm oblong area of the distal common bile duct that may have represented an opacity. We repositioned the patient and manipulated the duodenum laparoscopically in hopes of displacing an air bubble. Repeat fluoroscopy demonstrated improvement in the visualization of this portion of the distal common bile duct. I felt that the cholangiogram was essentially normal for this subtle opacity. We returned the peritoneal cavity remove the cholangiogram catheter, doubly clipped the cystic duct. The gallbladder was now removed from the liver bed using hook cautery dissection. A posterior branch of the cystic artery was clipped as encountered further up the plate of the liver. The specimen was freed up from the liver, and brought out of the patient through the supraumbilical port site. It was sent to pathology for permanent analysis We placed a large Ronald drain through the most lateral port site, trimmed to the appropriate length, sewed it to the skin with 2-0 Prolene suture and tucked it into the subhepatic space. We leveled the patient out, irrigated the peritoneal cavity several times, checked for bleeding and there was none. Extubated, Carroll catheter removed, patient taken to recovery room in stable condition. I reviewed the intraoperative cholangiogram with Dr. Dave marie, radiologist. He agreed with the interpretation above. His suspicion that the opacity represented a retained common bile duct stone was low.
[2020-05-09] MEDS: HYDROMORPHONE HCL INJ/PF 2 MG/ML AMPULE IV PRN (11:12)
[2020-05-09] MEDS ORDERED: ACETAMINOPHEN INJ/PF 1000 MG/100 ML SDV IV SCH (12:00)
[2020-05-09 12:57] LABS: HEMATOCRIT 21.1 % (37.9-51.0); MEAN CORPUSCULAR HGB CONC 33.8 g/dL (32.0-36.0); MEAN CORPUSCULAR VOLUME 80 fl (80-97); PLATELET COUNT 214 10^3/uL (150-450); RED BLOOD COUNT 2.64 10^6/uL (4.35-5.55); RED CELL DISTRIBUTION WIDTH 15.7 % (11.5-14.0); WHITE BLOOD COUNT 20.8 10^3/uL (4.0-10.5)
[2020-05-09 13:03] LABS: ALBUMIN 2.1 g/dL (3.5-5.0); ALKALINE PHOSPHATASE 141 U/L (38-126); ANION GAP 7 (5-19); ASPARTATE AMINO TRANSFERASE 77 U/L (17-59); BILIRUBIN,DIRECT 5.1 mg/dL (0.0-0.4); BLOOD UREA NITROGEN 73 mg/dL (7-20); CALCIUM 7.8 mg/dL (8.4-10.2); CARBON DIOXIDE 19 mmol/L (22-30); CHLORIDE 110 mmol/L (98-107); GLUCOSE 110 mg/dL (75-110); POTASSIUM 3.8 mmol/L (3.6-5.0); TOTAL PROTEIN 6.3 g/dL (6.3-8.2)
[2020-05-09 13:21] LABS: ABSOLUTE LYMPHOCYTES# (MANUAL) 0.4 10^3/uL (0.5-4.7); ABSOLUTE MONOCYTES # (MANUAL) 0.4 10^3/uL (0.1-1.4); BASOPHILS % (MANUAL) 0 % (0-2); EOSINOPHILS % (MANUAL) 0 % (0-6); LYMPHOCYTES % (MANUAL) 2 % (13-45); MONOCYTES % (MANUAL) 2 % (3-13); SEGMENTED NEUTROPHILS % (MAN) 96 % (42-78); TOTAL CELLS COUNTED 100
[2020-05-09 13:22] LABS: ANISOCYTOSIS SLIGHT; PLATELET COMMENT ADEQUATE
[2020-05-09 13:23] LABS: HEMOGLOBIN 7.1 g/dL (13.5-17.0)
[2020-05-09] MEDS: HEPARIN SOD (PORCINE) 5,000 UNIT/ML 1 ML VIAL SUBCUT SCH ×2 (13:24→21:06)
[2020-05-09] MEDS: FAMOTIDINE INJ/PF 20 MG/2 ML SDV IV SCH ×2 (13:25→21:06)
[2020-05-09] MEDS: ACETAMINOPHEN 1,000 MG/100 ML RTUPB IV SCH ×3 (13:27→23:16)
[2020-05-09] MEDS: NORMAL SALINE 1000 ML 1,000 ML IV PRN ×2 (13:32→22:19)
[2020-05-09] MEDS ORDERED: ROCURONIUM BROMIDE INJ 50 MG/5 ML VIAL IV ONE (14:26)
[2020-05-09] MEDS ORDERED: SUCCINYLCHOLINE CHLORIDE INJ 200 MG/10 ML VIAL ONE (14:26)
--- NOTE | 2020-05-09 15:04 | PDOC PROGRESS REPORT ---
Subjective Date:: 05/09/20 Subjective:: No adverse events overnight. No new complaints. Vital signs been stable. No f sean overnight. Awaiting surgery today. Reason For Visit: ACUTE CHOLECYSTITIS,RIGHT LOWER LOBE CAVITARY LUNG Physical Exam Vital Signs: Temp Pulse Resp BP Pulse Ox 98.6 F 95 33 H 138/80 H 94 05/09/20 11:19 05/09/20 11:19 05/09/20 11:19 05/09/20 11:19 05/09/20 11:19 Intake & Output 05/08/20 05/09/20 05/10/20 06:59 06:59 06:59 Intake Total 3162 3480 2300 Output Total 982 830 7881 Balance 2862 2830 1150 Weight 77 kg 78.4 kg General appearance: PRESENT: no acute distress, well-developed, well-nourished, acutely ill-appearing Head exam: PRESENT: atraumatic, normocephalic Eye exam: PRESENT: conjunctiva pink. ABSENT: scleral icterus Mouth exam: PRESENT: moist Respiratory exam: PRESENT: clear to auscultation angie. ABSENT: rales, rhonchi, wheezes Cardiovascular exam: PRESENT: RRR. ABSENT: diastolic murmur, rubs, systolic murmur GI/Abdominal exam: PRESENT: normal bowel sounds, soft, tender right upper quadrant with cholecystostomy drain in place ABSENT: distended, guarding, mass, organolmegaly, rebound Neurological exam: PRESENT: alert, awake, oriented to person, oriented to place, oriented to time, oriented to situation Psychiatric exam: PRESENT: appropriate affect, normal mood Skin exam: PRESENT: dry, intact, warm Results Laboratory Results: 05/09/20 12:30 05/09/20 12:30 05/09/20 05/09/20 05/09/20 08:28 12:30 12:30 WBC 20.8 H RBC 2.64 L Hgb 7.1 L Hct 21.1 L MCV 80 MCH 27.0 MCHC 33.8 RDW 15.7 H Plt Count 214 Seg Neutrophils % Not Reportable Sodium 135.9 L Potassium 3.8 Chloride 110 H Carbon Dioxide 19 L Anion Gap 7 BUN 73 H Creatinine 1.96 H Est GFR ( Amer) 47 L Glucose 110 Calcium 7.8 L Total Bilirubin 6.0 H AST 77 H Alkaline Phosphatase 141 H Total Protein 6.3 Albumin 2.1 L Blood Type B POSITIVE Antibody Screen NEGATIVE 05/05/20 08:30 Creatine Kinase < 20 L Impressions: Abdomen Ultrasound 05/05/20 08:46 IMPRESSION: 1. Diffuse gallbladder wall thickening, pericholecystic fluid, sludge and positive Salgado's sign - these findings are concerning for an acute cholecystitis. 2. The mid and distal abdominal aorta are obscured by overlying bowel. Abdomen MRI 05/05/20 11:39 IMPRESSION: Pericholecystic fluid consistent with cholecystitis. No dilated common bile duct. Parenchymal opacities at the lung bases with possible right lung mass. Chest X-Ray 05/05/20 14:09 IMPRESSION: Cavitary right lower lobe lesion. Recommend CT with contrast. Chest CT 05/05/20 14:49 IMPRESSION: Pulmonary nodules of varying size that exhibit varying degrees of cavitation and tree-in-bud nodular opacities. These patterns of disease can be the result of a number of different conditions, however it is important to note that tuberculosis can manifest as both of these patterns and should be excluded. Guidance Needle Placement CT 05/06/20 14:00 IMPRESSION: CT GUIDED CHOLECYSTOSTOMY. NO IMMEDIATE COMPLICATIONS. Percutaneous Drainage 05/06/20 14:00 IMPRESSION: CT GUIDED CHOLECYSTOSTOMY. NO IMMEDIATE COMPLICATIONS. Cholangiogram 05/09/20 00:00 IMPRESSION: INTRAOPERATIVE CHOLANGIOGRAM. Fluoroscopy 05/09/20 00:00 IMPRESSION: INTRAOPERATIVE CHOLANGIOGRAM. Assessment and Plan - Diagnosis (1) Acute cholecystitis Is this a current diagnosis for this admission?: Yes (2) Acute kidney injury Is this a current diagnosis for this admission?: Yes (3) Cavitary lesion of lung Is this a current diagnosis for this admission?: Yes (4) Elevated bilirubin Is this a current diagnosis for this admission?: Yes (5) Gram-negative bacteremia Is this a current diagnosis for this admission?: Yes (6) Hyponatremia Is this a current diagnosis for this admission?: Yes (7) Sepsis Qualifiers: Sepsis type: sepsis due to unspecified organism Sepsis acute organ dysfunction status: with acute organ dysfunction Severe sepsis acute organ dysfunction type: acute renal failure Acute renal failure type: unspecified Severe sepsis shock status: without septic shock Qualified Code(s): A41.9 - Sepsis, unspecified organism; R65.20 - Severe sepsis without septic shock; N17.9 - Acute kidney failure, unspecified Is this a current diagnosis for this admission?: Yes (8) Serratia septicemia Is this a current diagnosis for this admission?: Yes - Plan Summary Summary: Pending cholecystectomy today. We will continue antibiotics and IV fluids. We will continue to follow the trend in his creatinine and monitor his e lectrolytes. Also, his hemoglobin has been a bit low, and with his low MCV I suspect iron deficiency. We will have him check some iron levels in the blood to see if he needs replacement. - Time Time Spent with patient: 15-24 minutes Anticipated Discharge Disposition: Unknown Anticipated Discharge Timeframe: Unknown
[2020-05-09 16:28] LABS: IRON(TIBC) 40.2 ug/dL (49-181)
[2020-05-09 16:31] LABS: ABSOLUTE RETICS # 0.016 10^6/uL (0.028-0.122)
[2020-05-09] MEDS: DOCUSATE SODIUM 100 MG CAPSULE PO SCH (17:55)
[2020-05-09] MEDS: OXYCODONE-ACETAMINOPHEN 5-325 MG TABLET PO PRN ×2 (17:56→23:59)
[2020-05-09] MEDS: PIPERACILLIN SODIUM/TAZOBACTAM 3.375 GM in NORMAL SALINE 100 ML IV SCH (23:16)
[2020-05-10 04:34] LABS: ABSOLUTE MONOCYTES (AUTO) 0.8 10^3/uL (0.1-1.4); BASOPHILS % (AUTO) 0.1 % (0-2); TOTAL CELLS COUNTED % (AUTO) 100 %
[2020-05-10 04:43] LABS: ABSOLUTE LYMPHOCYTES (AUTO) 1.2 10^3/uL (0.5-4.7); ABSOLUTE NEUT (AUTO) 12.7 10^3/uL (1.7-8.2); HEMATOCRIT 20.9 % (37.9-51.0); MEAN CORPUSCULAR HGB CONC 33.5 g/dL (32.0-36.0); MEAN CORPUSCULAR VOLUME 81 fl (80-97); MONOCYTES % (AUTO) 5.2 % (3-13); PLATELET COUNT 207 10^3/uL (150-450); RED CELL DISTRIBUTION WIDTH 15.6 % (11.5-14.0); SEGMENTED NEUTROPHILS % (AUTO) 86.7 % (42-78); WHITE BLOOD COUNT 14.6 10^3/uL (4.0-10.5)
[2020-05-10 04:57] LABS: ALBUMIN 2.2 g/dL (3.5-5.0); ALKALINE PHOSPHATASE 134 U/L (38-126); ANION GAP 10 (5-19); ASPARTATE AMINO TRANSFERASE 47 U/L (17-59); BILIRUBIN,DIRECT 3.8 mg/dL (0.0-0.4); BILIRUBIN,TOTAL 4.5 mg/dL (0.2-1.3); BLOOD UREA NITROGEN 72 mg/dL (7-20); CALCIUM 7.7 mg/dL (8.4-10.2); CARBON DIOXIDE 16 mmol/L (22-30); CHLORIDE 111 mmol/L (98-107); GLUCOSE 125 mg/dL (75-110); POTASSIUM 3.8 mmol/L (3.6-5.0); TOTAL PROTEIN 6.2 g/dL (6.3-8.2)
[2020-05-10] MEDS: PIPERACILLIN SODIUM/TAZOBACTAM 3.375 GM in NORMAL SALINE 100 ML IV SCH ×3 (05:03→18:41)
[2020-05-10] MEDS: ACETAMINOPHEN 1,000 MG/100 ML RTUPB IV SCH ×5 (05:03→23:52)
[2020-05-10] MEDS: NORMAL SALINE 1000 ML 1,000 ML IV PRN (05:06)
[2020-05-10] MEDS: OXYCODONE-ACETAMINOPHEN 5-325 MG TABLET PO PRN ×3 (06:07→18:26)
--- NOTE | 2020-05-10 07:56 | EKG REPORT ---
SEVERITY:- ABNORMAL ECG - SINUS ARRHYTHMIA, RATE 42-66 BORDERLINE PROLONGED QT INTERVAL NONSPECIFIC IVCD NONSPECIFIC ANTERIOR ST CHANGES : Confirmed by: Ever Raymond MD 10-May-2020 07:55:23
[2020-05-10] MEDS: DOCUSATE SODIUM 100 MG CAPSULE PO SCH ×2 (09:52→18:21)
[2020-05-10] MEDS: FAMOTIDINE INJ/PF 20 MG/2 ML SDV IV SCH ×2 (09:52→21:09)
[2020-05-10] MEDS: HEPARIN SOD (PORCINE) 5,000 UNIT/ML 1 ML VIAL SUBCUT SCH ×2 (09:52→21:09)
--- NOTE | 2020-05-10 10:03 | PDOC PROGRESS REPORT ---
Subjective Date:: 05/10/20 Reason For Visit: ACUTE CHOLECYSTITIS,RIGHT LOWER LOBE CAVITARY LUNG Patient feels much better, tolerating clear liquids; having some drainage around his operative drain. No fever Physical Exam Vital Signs: Temp Pulse Resp BP Pulse Ox 97.6 F 49 L 20 129/90 H 96 05/09/20 22:00 05/10/20 02:00 05/09/20 20:22 05/09/20 20:22 05/09/20 20:22 Intake & Output 05/09/20 05/10/20 05/11/20 06:59 06:59 06:59 Intake Total 3480 5682 Output Total 650 1420 Balance 2830 4262 Weight 78.4 kg 78.4 kg General appearance: PRESENT: no acute distress GI/Abdominal exam: PRESENT: other - Abdomen is soft, nontender no peritoneal signs; serobilious staining from the right drain site. Results Laboratory Results: 05/10/20 04:18 05/10/20 04:18 05/09/20 05/09/20 05/09/20 12:30 12:30 12:30 WBC 20.8 H RBC 2.64 L Hgb 7.1 L Hct 21.1 L MCV 80 MCH 27.0 MCHC 33.8 RDW 15.7 H Plt Count 214 Seg Neutrophils % Not Reportable Retic Count (auto) 0.60 L Sodium 135.9 L Potassium 3.8 Chloride 110 H Carbon Dioxide 19 L Anion Gap 7 BUN 73 H Creatinine 1.96 H Est GFR ( Amer) 47 L Glucose 110 Calcium 7.8 L Magnesium Iron TIBC % Saturation Ferritin Total Bilirubin 6.0 H AST 77 H Alkaline Phosphatase 141 H Total Protein 6.3 Albumin 2.1 L Vitamin B12 Folate 05/09/20 05/10/20 05/10/20 12:30 04:18 04:18 WBC 14.6 H RBC 2.60 L Hgb 7.0 L Hct 20.9 L MCV 81 MCH 27.0 MCHC 33.5 RDW 15.6 H Plt Count 207 Seg Neutrophils % 86.7 H Retic Count (auto) Sodium 136.9 L Potassium 3.8 Chloride 111 H Carbon Dioxide 16 L Anion Gap 10 BUN 72 H Creatinine 2.07 H Est GFR ( Amer) 44 L Glucose 125 H Calcium 7.7 L Magnesium Iron 40.2 L TIBC 202 L % Saturation 20 Ferritin 789.00 H Total Bilirubin 4.5 H AST 47 Alkaline Phosphatase 134 H Total Protein 6.2 L Albumin 2.2 L Vitamin B12 805.0 Folate 11.30 05/10/20 04:18 WBC RBC Hgb Hct MCV MCH MCHC RDW Plt Count Seg Neutrophils % Retic Count (auto) Sodium Potassium Chloride Carbon Dioxide Anion Gap BUN Creatinine Est GFR ( Amer) Glucose Calcium Magnesium 2.8 H Iron TIBC % Saturation Ferritin Total Bilirubin AST Alkaline Phosphatase Total Protein Albumin Vitamin B12 Folate 05/07/20 09:49 Blood Blood Culture (PCR) - Final Serratia Marcescens 05/05/20 08:30 Creatine Kinase < 20 L Impressions: Abdomen Ultrasound 05/05/20 08:46 IMPRESSION: 1. Diffuse gallbladder wall thickening, pericholecystic fluid, sludge and positive Salgado's sign - these findings are concerning for an acute cholecystitis. 2. The mid and distal abdominal aorta are obscured by overlying bowel. Abdomen MRI 05/05/20 11:39 IMPRESSION: Pericholecystic fluid consistent with cholecystitis. No dilated common bile duct. Parenchymal opacities at the lung bases with possible right lung mass. Chest X-Ray 05/05/20 14:09 IMPRESSION: Cavitary right lower lobe lesion. Recommend CT with contrast. Chest CT 05/05/20 14:49 IMPRESSION: Pulmonary nodules of varying size that exhibit varying degrees of cavitation and tree-in-bud nodular opacities. These patterns of disease can be the result of a number of different conditions, however it is important to note that tuberculosis can manifest as both of these patterns and should be excluded. Guidance Needle Placement CT 05/06/20 14:00 IMPRESSION: CT GUIDED CHOLECYSTOSTOMY. NO IMMEDIATE COMPLICATIONS. Percutaneous Drainage 05/06/20 14:00 IMPRESSION: CT GUIDED CHOLECYSTOSTOMY. NO IMMEDIATE COMPLICATIONS. Cholangiogram 05/09/20 00:00 IMPRESSION: INTRAOPERATIVE CHOLANGIOGRAM. Fluoroscopy 05/09/20 00:00 IMPRESSION: INTRAOPERATIVE CHOLANGIOGRAM. Assessment & Plan - Diagnosis (1) Acute cholecystitis Is this a current diagnosis for this admission?: Yes Plan: Impression: 1 day status post laparoscopic cholecystectomy, intraoperative cholangiography, doing much better, with decline white blood cell count, and total bilirubin. No fever. Plan: 1. Advance diet, saline lock 2. Recheck labs in the morning. If continued improvement, and no signs of sepsis, can likely send home (2) Cavitary lesion of lung Is this a current diagnosis for this admission?: Yes (3) Elevated bilirubin Is this a current diagnosis for this admission?: Yes - Time Anticipated Discharge Disposition: Home, Self Care Anticipated Discharge Timeframe: within 24 hours
[2020-05-10] MEDS ORDERED: NORMAL SALINE 1000 ML 1,000 ML IV PRN (15:15)
--- NOTE | 2020-05-10 15:20 | PDOC PROGRESS REPORT ---
Subjective Date:: 05/10/20 Subjective:: No adverse events overnight. No new complaints. Vital signs have been stable. He was advanced to a regular diet today. He was very excited because he just got to eat a sandwich. He said he feels a lot better. Reason For Visit: ACUTE CHOLECYSTITIS,RIGHT LOWER LOBE CAVITARY LUNG Physical Exam Vital Signs: Temp Pulse Resp BP Pulse Ox 97.6 F 96 20 129/90 H 96 05/09/20 22:00 05/10/20 07:00 05/09/20 20:22 05/09/20 20:22 05/09/20 20:22 Intake & Output 05/09/20 05/10/20 05/11/20 06:59 06:59 06:59 Intake Total 3480 5682 100 Output Total 650 1420 Balance 2830 4262 100 Weight 78.4 kg 78.4 kg General appearance: PRESENT: no acute distress, well-developed, well-nourished Head exam: PRESENT: atraumatic, normocephalic Eye exam: PRESENT: conjunctiva pink. ABSENT: scleral icterus Mouth exam: PRESENT: moist Respiratory exam: PRESENT: clear to auscultation angie. ABSENT: rales, rhonchi, wheezes Cardiovascular exam: PRESENT: RRR. ABSENT: diastolic murmur, rubs, systolic murmur GI/Abdominal exam: PRESENT: normal bowel sounds, soft, mild appropriate postsurgical tenderness with surgical drain in place. ABSENT: distended, guarding, mass, organolmegaly, rebound Neurological exam: PRESENT: alert, awake, oriented to person, oriented to place, oriented to time, oriented to situation Psychiatric exam: PRESENT: appropriate affect, normal mood Skin exam: PRESENT: dry, intact, warm Results Laboratory Results: 05/10/20 04:18 05/10/20 04:18 05/09/20 05/09/20 05/10/20 12:30 12:30 04:18 WBC 14.6 H RBC 2.60 L Hgb 7.0 L Hct 20.9 L MCV 81 MCH 27.0 MCHC 33.5 RDW 15.6 H Plt Count 207 Seg Neutrophils % 86.7 H Retic Count (auto) 0.60 L Sodium Potassium Chloride Carbon Dioxide Anion Gap BUN Creatinine Est GFR ( Amer) Glucose Calcium Magnesium Iron 40.2 L TIBC 202 L % Saturation 20 Ferritin 789.00 H Total Bilirubin AST Alkaline Phosphatase Total Protein Albumin Vitamin B12 805.0 Folate 11.30 05/10/20 05/10/20 04:18 04:18 WBC RBC Hgb Hct MCV MCH MCHC RDW Plt Count Seg Neutrophils % Retic Count (auto) Sodium 136.9 L Potassium 3.8 Chloride 111 H Carbon Dioxide 16 L Anion Gap 10 BUN 72 H Creatinine 2.07 H Est GFR ( Amer) 44 L Glucose 125 H Calcium 7.7 L Magnesium 2.8 H Iron TIBC % Saturation Ferritin Total Bilirubin 4.5 H AST 47 Alkaline Phosphatase 134 H Total Protein 6.2 L Albumin 2.2 L Vitamin B12 Folate 05/06/20 15:10 Gallbladder AFB Smear Concentration - Final 05/06/20 15:10 Gallbladder Acid Fast Bacilli Smear - Final 05/07/20 09:49 Blood Blood Culture (PCR) - Final Serratia Marcescens 05/05/20 08:30 Creatine Kinase < 20 L Impressions: Abdomen Ultrasound 05/05/20 08:46 IMPRESSION: 1. Diffuse gallbladder wall thickening, pericholecystic fluid, sludge and positive Salgado's sign - these findings are concerning for an acute cholecystitis. 2. The mid and distal abdominal aorta are obscured by overlying bowel. Abdomen MRI 05/05/20 11:39 IMPRESSION: Pericholecystic fluid consistent with cholecystitis. No dilated common bile duct. Parenchymal opacities at the lung bases with possible right lung mass. Chest X-Ray 05/05/20 14:09 IMPRESSION: Cavitary right lower lobe lesion. Recommend CT with contrast. Chest CT 05/05/20 14:49 IMPRESSION: Pulmonary nodules of varying size that exhibit varying degrees of cavitation and tree-in-bud nodular opacities. These patterns of disease can be the result of a number of different conditions, however it is important to note that tuberculosis can manifest as both of these patterns and should be excluded. Guidance Needle Placement CT 05/06/20 14:00 IMPRESSION: CT GUIDED CHOLECYSTOSTOMY. NO IMMEDIATE COMPLICATIONS. Percutaneous Drainage 05/06/20 14:00 IMPRESSION: CT GUIDED CHOLECYSTOSTOMY. NO IMMEDIATE COMPLICATIONS. Cholangiogram 05/09/20 00:00 IMPRESSION: INTRAOPERATIVE CHOLANGIOGRAM. Fluoroscopy 05/09/20 00:00 IMPRESSION: INTRAOPERATIVE CHOLANGIOGRAM. Assessment and Plan - Diagnosis (1) Acute cholecystitis Is this a current diagnosis for this admission?: Yes (2) Acute kidney injury Is this a current diagnosis for this admission?: Yes (3) Cavitary lesion of lung Is this a current diagnosis for this admission?: Yes (4) Elevated bilirubin Is this a current diagnosis for this admission?: Yes (5) Gram-negative bacteremia Is this a current diagnosis for this admission?: Yes (6) Hyponatremia Is this a current diagnosis for this admission?: Yes (7) Sepsis Qualifiers: Sepsis type: sepsis due to unspecified organism Sepsis acute organ dysfunction status: with acute organ dysfunction Severe sepsis acute organ dysfunction type: acute renal failure Acute renal failure type: unspecified Severe sepsis shock status: without septic shock Qualified Code(s): A41.9 - Sepsis, unspecified organism; R65.20 - Severe sepsis without septic shock; N17.9 - Acute kidney failure, unspecified Is this a current diagnosis for this admission?: Yes (8) Serratia septicemia Is this a current diagnosis for this admission?: Yes - Plan Summary Summary: Postop day #1 status post cholecystectomy. He seems to be doing very well and is feeling better. Tolerating advancement of his diet. Creatinine is still e levated so we will continue his IV fluids, but I think now that the source of infection has been removed I think he will improve rapidly. Continue IV antibiotics while he is in the hospital to eradicate any residual remaining infection. If his creatinine is trending down tomorrow he may be able to go home. - Time Time Spent with patient: 15-24 minutes Anticipated Discharge Disposition: Home, Self Care Anticipated Discharge Timeframe: within 48 hours
[2020-05-10] MEDS: ONDANSETRON HCL INJ/PF 4 MG/2 ML SDV IV PRN (22:41)
[2020-05-11] MEDS: PIPERACILLIN SODIUM/TAZOBACTAM 3.375 GM in NORMAL SALINE 100 ML IV SCH ×6 (00:41→23:02)
[2020-05-11] MEDS: OXYCODONE-ACETAMINOPHEN 5-325 MG TABLET PO PRN ×4 (02:04→22:32)
[2020-05-11] MEDS ORDERED: MELATONIN 5 MG TABLET PO PRN (03:28)
[2020-05-11] MEDS: ACETAMINOPHEN 1,000 MG/100 ML RTUPB IV SCH ×4 (05:06→23:02)
--- NOTE | 2020-05-11 06:01 | Left Against Medical Advice ---
Against Medical Advice Admission Date/Time: 05/05/20 21:53 Primary Care Provider: Date of Patient Emigration: 05/11/20 - Diagnosis: (1) Acute cholecystitis Is this a current diagnosis for this admission?: Yes (2) Gram-negative bacteremia Is this a current diagnosis for this admission?: Yes (3) Acute kidney injury Is this a current diagnosis for this admission?: Yes (4) Cavitary lesion of lung Is this a current diagnosis for this admission?: Yes (5) Hyponatremia Is this a current diagnosis for this admission?: Yes (6) Elevated bilirubin Is this a current diagnosis for this admission?: Yes - Summary: Summary: Please see Admission and Progress Notes as well. CHRISTOFER ANTHONY is a 34 M, who LEFT AGAINST MEDICAL ADVICE. The Patient was admitted on 05/05/20 21:53.
[2020-05-11 06:47] LABS: ABSOLUTE BASOPHILS # (AUTO) 0.1 10^3/uL (0.0-0.2); ABSOLUTE EOSINOPHILS # (AUTO) 0.1 10^3/uL (0.0-0.6); ABSOLUTE LYMPHOCYTES (AUTO) 1.7 10^3/uL (0.5-4.7); ABSOLUTE NEUT (AUTO) 11.5 10^3/uL (1.7-8.2); BASOPHILS % (AUTO) 0.4 % (0-2); EOSINOPHILS % (AUTO) 0.4 % (0-6); LYMPHOCYTES % (AUTO) 11.6 % (13-45); MEAN CORPUSCULAR HEMOGLOBIN 27.6 pg (27.0-33.4); MEAN CORPUSCULAR HGB CONC 34.3 g/dL (32.0-36.0); MEAN CORPUSCULAR VOLUME 81 fl (80-97); RED BLOOD COUNT 2.36 10^6/uL (4.35-5.55); SEGMENTED NEUTROPHILS % (AUTO) 80.6 % (42-78); TOTAL CELLS COUNTED % (AUTO) 100 %; WHITE BLOOD COUNT 14.3 10^3/uL (4.0-10.5)
[2020-05-11 07:16] LABS: ALKALINE PHOSPHATASE 174 U/L (38-126); ANION GAP 6 (5-19); ASPARTATE AMINO TRANSFERASE 37 U/L (17-59); BILIRUBIN,DIRECT 2.7 mg/dL (0.0-0.4); BILIRUBIN,TOTAL 3.5 mg/dL (0.2-1.3); BLOOD UREA NITROGEN 52 mg/dL (7-20); CALCIUM 7.9 mg/dL (8.4-10.2); CARBON DIOXIDE 19 mmol/L (22-30); CHLORIDE 112 mmol/L (98-107); GLUCOSE 93 mg/dL (75-110); POTASSIUM 3.3 mmol/L (3.6-5.0); TOTAL PROTEIN 5.7 g/dL (6.3-8.2)
[2020-05-11 07:24] LABS: PLATELET COUNT 247 10^3/uL (150-450)
[2020-05-11 07:27] LABS: HEMOGLOBIN 6.5 g/dL (13.5-17.0)
[2020-05-11] MEDS ORDERED: NORMAL SALINE 250 ML IV PRN ×2 (08:24)
[2020-05-11] MEDS: HEPARIN SOD (PORCINE) 5,000 UNIT/ML 1 ML VIAL SUBCUT SCH ×2 (10:05→21:22)
[2020-05-11] MEDS: DOCUSATE SODIUM 100 MG CAPSULE PO SCH ×2 (10:05→17:42)
[2020-05-11] MEDS: FAMOTIDINE INJ/PF 20 MG/2 ML SDV IV SCH ×2 (10:05→21:22)
[2020-05-11] MEDS: ACETAMINOPHEN 325 MG TABLET PO PRN (11:20)
--- NOTE | 2020-05-11 15:28 | PDOC PROGRESS REPORT ---
Subjective Date:: 05/11/20 Subjective:: No adverse events overnight. He has had some elevated temperatures but said ove rall he feels pretty good. He does feel a little bit fatigued. Eating and drinking without difficulty. Reason For Visit: ACUTE CHOLECYSTITIS,RIGHT LOWER LOBE CAVITARY LUNG Physical Exam Vital Signs: Temp Pulse Resp BP Pulse Ox 98.7 F 88 24 H 135/73 H 98 05/11/20 14:52 05/11/20 14:52 05/11/20 14:52 05/11/20 14:52 05/11/20 14:52 Intake & Output 05/10/20 05/11/20 05/12/20 06:59 06:59 06:59 Intake Total 5682 3552 300 Output Total 1420 850 Balance 4262 2702 300 Weight 78.4 kg 80.7 kg General appearance: PRESENT: no acute distress, well-developed, well-nourished Head exam: PRESENT: atraumatic, normocephalic Eye exam: PRESENT: conjunctiva pink. ABSENT: scleral icterus Mouth exam: PRESENT: moist Respiratory exam: PRESENT: clear to auscultation angie. ABSENT: rales, rhonchi, wheezes Cardiovascular exam: PRESENT: RRR. ABSENT: diastolic murmur, rubs, systolic murmur GI/Abdominal exam: PRESENT: normal bowel sounds, soft, mild appropriate postsurgical tenderness with surgical drain in place. ABSENT: distended, guarding, mass, organolmegaly, rebound Neurological exam: PRESENT: alert, awake, oriented to person, oriented to place, oriented to time, oriented to situation Psychiatric exam: PRESENT: appropriate affect, normal mood Skin exam: PRESENT: dry, intact, warm Results Laboratory Results: 05/11/20 06:07 05/11/20 06:07 05/09/20 05/11/20 05/11/20 08:28 06:07 06:07 WBC 14.3 H RBC 2.36 L Hgb 6.5 L Hct 19.0 L MCV 81 MCH 27.6 MCHC 34.3 RDW 16.0 H Plt Count 247 Seg Neutrophils % 80.6 H Sodium 137.2 Potassium 3.3 L Chloride 112 H Carbon Dioxide 19 L Anion Gap 6 BUN 52 H Creatinine 1.58 H Est GFR ( Amer) > 60 Glucose 93 Calcium 7.9 L Total Bilirubin 3.5 H AST 37 Alkaline Phosphatase 174 H Total Protein 5.7 L Albumin 2.0 L Blood Type B POSITIVE Antibody Screen NEGATIVE 05/11/20 06:07 WBC RBC Hgb Hct MCV MCH MCHC RDW Plt Count Seg Neutrophils % Sodium Potassium Chloride Carbon Dioxide Anion Gap BUN Creatinine Est GFR ( Amer) Glucose Calcium Total Bilirubin Cancelled AST Cancelled Alkaline Phosphatase Cancelled Total Protein Cancelled Albumin Cancelled Blood Type Antibody Screen 05/06/20 15:10 Gallbladder Fungal Smear - Final 05/06/20 15:10 Gallbladder Fungal Smear - Final 05/07/20 09:49 Blood Blood Culture (PCR) - Final Serratia Marcescens 05/07/20 09:49 Blood Blood Culture - Final Serratia Marcescens 05/06/20 15:10 Gallbladder AFB Smear Concentration - Final 05/06/20 15:10 Gallbladder Acid Fast Bacilli Smear - Final 05/05/20 08:30 Creatine Kinase < 20 L Impressions: Abdomen Ultrasound 05/05/20 08:46 IMPRESSION: 1. Diffuse gallbladder wall thickening, pericholecystic fluid, sludge and positive Salgado's sign - these findings are concerning for an acute cholecystitis. 2. The mid and distal abdominal aorta are obscured by overlying bowel. Abdomen MRI 05/05/20 11:39 IMPRESSION: Pericholecystic fluid consistent with cholecystitis. No dilated common bile duct. Parenchymal opacities at the lung bases with possible right lung mass. Chest X-Ray 05/05/20 14:09 IMPRESSION: Cavitary right lower lobe lesion. Recommend CT with contrast. Chest CT 05/05/20 14:49 IMPRESSION: Pulmonary nodules of varying size that exhibit varying degrees of cavitation and tree-in-bud nodular opacities. These patterns of disease can be the result of a number of different conditions, however it is important to note that tuberculosis can manifest as both of these patterns and should be excluded. Guidance Needle Placement CT 05/06/20 14:00 IMPRESSION: CT GUIDED CHOLECYSTOSTOMY. NO IMMEDIATE COMPLICATIONS. Percutaneous Drainage 05/06/20 14:00 IMPRESSION: CT GUIDED CHOLECYSTOSTOMY. NO IMMEDIATE COMPLICATIONS. Cholangiogram 05/09/20 00:00 IMPRESSION: INTRAOPERATIVE CHOLANGIOGRAM. Fluoroscopy 05/09/20 00:00 IMPRESSION: INTRAOPERATIVE CHOLANGIOGRAM. Assessment and Plan - Diagnosis (1) Acute cholecystitis Is this a current diagnosis for this admission?: Yes (2) Acute kidney injury Is this a current diagnosis for this admission?: Yes (3) Cavitary lesion of lung Is this a current diagnosis for this admission?: Yes (4) Elevated bilirubin Is this a current diagnosis for this admission?: Yes (5) Gram-negative bacteremia Is this a current diagnosis for this admission?: Yes (6) Hyponatremia Is this a current diagnosis for this admission?: Yes (7) Sepsis Qualifiers: Sepsis type: sepsis due to unspecified organism Sepsis acute organ dys function status: with acute organ dysfunction Severe sepsis acute organ d ysfunction type: acute renal failure Acute renal failure type: unspecified Severe sepsis shock status: without septic shock Qualified Code(s): A41.9 - Sepsis, unspecified organism; R65.20 - Severe sepsis without septic shock; N17.9 - Acute kidney failure, unspecified Is this a current diagnosis for this admission?: Yes (8) Serratia septicemia Is this a current diagnosis for this admission?: Yes (9) Iron deficiency anemia Qualifiers: Iron deficiency anemia type: unspecified iron deficiency Qualified Code(s): D50.9 - Iron deficiency anemia, unspecified Is this a current diagnosis for this admission?: Yes - Plan Summary Summary: Postop day #2 status post cholecystectomy. He seems to be doing very well and is feeling better. Tolerating regular diet. Creatinine has improved, trending towards normal. Hemoglobin was low as a result of his iron deficiency and his hemodilution from the fluids he has been getting. We are giving him 2 units of packed red cells today. We will continue antibiotics while he is in the hospital. He is anxious to go home. If his vital signs are stable and his hemoglobin is good after transfusion we might be able to consider sending him home at that time. He should be able to finish the work-up for TB rule out at home. I think it is low probability that he has TB. - Time Time Spent with patient: 15-24 minutes Anticipated Discharge Disposition: Home, Self Care Anticipated Discharge Timeframe: within 24 hours
--- NOTE | 2020-05-11 17:02 | PDOC PROGRESS REPORT ---
Subjective Date:: 05/11/20 Subjective:: feels better Reason For Visit: ACUTE CHOLECYSTITIS,RIGHT LOWER LOBE CAVITARY LUNG Physical Exam Vital Signs: Temp Pulse Resp BP Pulse Ox 98.5 F 79 23 H 140/72 H 98 05/11/20 15:52 05/11/20 15:52 05/11/20 15:52 05/11/20 15:52 05/11/20 15:52 Intake & Output 05/10/20 05/11/20 05/12/20 06:59 06:59 06:59 Intake Total 5682 3552 300 Output Total 1420 850 Balance 4262 2702 300 Weight 78.4 kg 80.7 kg General appearance: PRESENT: no acute distress Head exam: PRESENT: normocephalic Eye exam: PRESENT: EOMI Ear exam: PRESENT: normal external ear exam Mouth exam: PRESENT: moist Neck exam: PRESENT: full ROM Respiratory exam: PRESENT: clear to auscultation angie Cardiovascular exam: PRESENT: RRR Pulses: PRESENT: normal radial pulses, normal femoral pulses Vascular exam: PRESENT: normal capillary refill Breast: PRESENT: Normal GI/Abdominal exam: PRESENT: soft - softly distended Rectal exam: PRESENT: deferred Extremities exam: PRESENT: full ROM Musculoskeletal exam: PRESENT: full ROM Neurological exam: PRESENT: alert, awake, oriented to person, oriented to place Psychiatric exam: PRESENT: appropriate affect Skin exam: PRESENT: dry Results Laboratory Results: 05/11/20 06:07 05/11/20 06:07 05/09/20 05/11/20 05/11/20 08:28 06:07 06:07 WBC 14.3 H RBC 2.36 L Hgb 6.5 L Hct 19.0 L MCV 81 MCH 27.6 MCHC 34.3 RDW 16.0 H Plt Count 247 Seg Neutrophils % 80.6 H Sodium 137.2 Potassium 3.3 L Chloride 112 H Carbon Dioxide 19 L Anion Gap 6 BUN 52 H Creatinine 1.58 H Est GFR ( Amer) > 60 Glucose 93 Calcium 7.9 L Total Bilirubin 3.5 H AST 37 Alkaline Phosphatase 174 H Total Protein 5.7 L Albumin 2.0 L Blood Type B POSITIVE Antibody Screen NEGATIVE 05/11/20 06:07 WBC RBC Hgb Hct MCV MCH MCHC RDW Plt Count Seg Neutrophils % Sodium Potassium Chloride Carbon Dioxide Anion Gap BUN Creatinine Est GFR ( Amer) Glucose Calcium Total Bilirubin Cancelled AST Cancelled Alkaline Phosphatase Cancelled Total Protein Cancelled Albumin Cancelled Blood Type Antibody Screen 05/06/20 15:10 Gallbladder Fungal Smear - Final 05/06/20 15:10 Gallbladder Fungal Smear - Final 05/07/20 09:49 Blood Blood Culture (PCR) - Final Serratia Marcescens 05/07/20 09:49 Blood Blood Culture - Final Serratia Marcescens 05/05/20 08:30 Creatine Kinase < 20 L Impressions: Abdomen Ultrasound 05/05/20 08:46 IMPRESSION: 1. Diffuse gallbladder wall thickening, pericholecystic fluid, sludge and positive Salgaod's sign - these findings are concerning for an acute cholecystitis. 2. The mid and distal abdominal aorta are obscured by overlying bowel. Abdomen MRI 05/05/20 11:39 IMPRESSION: Pericholecystic fluid consistent with cholecystitis. No dilated common bile duct. Parenchymal opacities at the lung bases with possible right lung mass. Chest X-Ray 05/05/20 14:09 IMPRESSION: Cavitary right lower lobe lesion. Recommend CT with contrast. Chest CT 05/05/20 14:49 IMPRESSION: Pulmonary nodules of varying size that exhibit varying degrees of cavitation and tree-in-bud nodular opacities. These patterns of disease can be the result of a number of different conditions, however it is important to note that tuberculosis can manifest as both of these patterns and should be excluded. Guidance Needle Placement CT 05/06/20 14:00 IMPRESSION: CT GUIDED CHOLECYSTOSTOMY. NO IMMEDIATE COMPLICATIONS. Percutaneous Drainage 05/06/20 14:00 IMPRESSION: CT GUIDED CHOLECYSTOSTOMY. NO IMMEDIATE COMPLICATIONS. Cholangiogram 05/09/20 00:00 IMPRESSION: INTRAOPERATIVE CHOLANGIOGRAM. Fluoroscopy 05/09/20 00:00 IMPRESSION: INTRAOPERATIVE CHOLANGIOGRAM. Assessment & Plan - Time Anticipated Discharge Disposition: Home, Self Care Anticipated Discharge Timeframe: unk - Plan Summary Plan Summary: s/p cholecystectomy for acute cholecystitis noted to be fe deficient anemia recieving 2 units of blood today new reg diet marko drain in place still sl bilous plan prob ok to dc home tomorrow if ok with medicine and repeat labs improve still sl elevated tbili, would trend
[2020-05-11] MEDS: ONDANSETRON HCL INJ/PF 4 MG/2 ML SDV IV PRN (17:42)
[2020-05-11 19:11] LABS: URINE CREATININE 152.8 mg/dL (24-392)
[2020-05-11 19:25] LABS: UR PRO/CREAT RATIO RESULT 1.4 mg/mg (0.0-0.2); URINE PROTEIN 213.1 mg/dL (<12)
[2020-05-12 00:58] LABS: ABSOLUTE EOSINOPHILS # (AUTO) 0.1 10^3/uL (0.0-0.6); ABSOLUTE LYMPHOCYTES (AUTO) 1.5 10^3/uL (0.5-4.7); ABSOLUTE MONOCYTES (AUTO) 1.1 10^3/uL (0.1-1.4); ABSOLUTE NEUT (AUTO) 11.8 10^3/uL (1.7-8.2); BASOPHILS % (AUTO) 0.1 % (0-2); EOSINOPHILS % (AUTO) 0.5 % (0-6); HEMATOCRIT 22.3 % (37.9-51.0); LYMPHOCYTES % (AUTO) 10.2 % (13-45); MEAN CORPUSCULAR HEMOGLOBIN 28.2 pg (27.0-33.4); MEAN CORPUSCULAR HGB CONC 34.5 g/dL (32.0-36.0); MEAN CORPUSCULAR VOLUME 82 fl (80-97); MONOCYTES % (AUTO) 7.7 % (3-13); PLATELET COUNT 242 10^3/uL (150-450); RED BLOOD COUNT 2.73 10^6/uL (4.35-5.55); RED CELL DISTRIBUTION WIDTH 15.6 % (11.5-14.0); SEGMENTED NEUTROPHILS % (AUTO) 81.5 % (42-78); TOTAL CELLS COUNTED % (AUTO) 100 %; WHITE BLOOD COUNT 14.4 10^3/uL (4.0-10.5)
[2020-05-12 01:00] LABS: HEMOGLOBIN 7.7 g/dL (13.5-17.0)
[2020-05-12] MEDS: OXYCODONE-ACETAMINOPHEN 5-325 MG TABLET PO PRN ×2 (04:32→11:00)
[2020-05-12] MEDS: ACETAMINOPHEN 1,000 MG/100 ML RTUPB IV SCH (05:00)
[2020-05-12] MEDS: PIPERACILLIN SODIUM/TAZOBACTAM 3.375 GM in NORMAL SALINE 100 ML IV SCH ×2 (05:00→12:22)
[2020-05-12 06:33] LABS: HEMATOCRIT 23.5 % (37.9-51.0); MEAN CORPUSCULAR HEMOGLOBIN 27.6 pg (27.0-33.4); MEAN CORPUSCULAR HGB CONC 33.9 g/dL (32.0-36.0); MEAN CORPUSCULAR VOLUME 81 fl (80-97); PLATELET COUNT 281 10^3/uL (150-450); RED BLOOD COUNT 2.89 10^6/uL (4.35-5.55); RED CELL DISTRIBUTION WIDTH 15.7 % (11.5-14.0); WHITE BLOOD COUNT 18.7 10^3/uL (4.0-10.5)
[2020-05-12 06:53] LABS: ALBUMIN 2.1 g/dL (3.5-5.0); ALKALINE PHOSPHATASE 217 U/L (38-126); ANION GAP 7 (5-19); ASPARTATE AMINO TRANSFERASE 37 U/L (17-59); BILIRUBIN,DIRECT 2.5 mg/dL (0.0-0.4); BILIRUBIN,TOTAL 3.4 mg/dL (0.2-1.3); BLOOD UREA NITROGEN 45 mg/dL (7-20); CALCIUM 7.9 mg/dL (8.4-10.2); CARBON DIOXIDE 18 mmol/L (22-30); CHLORIDE 110 mmol/L (98-107); GLUCOSE 101 mg/dL (75-110); POTASSIUM 3.3 mmol/L (3.6-5.0)
[2020-05-12 07:01] LABS: ABSOLUTE LYMPHOCYTES# (MANUAL) 0.7 10^3/uL (0.5-4.7); ABSOLUTE MONOCYTES # (MANUAL) 0.7 10^3/uL (0.1-1.4); BASOPHILS % (MANUAL) 0 % (0-2); EOSINOPHILS % (MANUAL) 3 % (0-6); LYMPHOCYTES % (MANUAL) 4 % (13-45); MONOCYTES % (MANUAL) 4 % (3-13); SEGMENTED NEUTROPHILS % (MAN) 89 % (42-78); TOTAL CELLS COUNTED 100
[2020-05-12 07:03] LABS: ANISOCYTOSIS SLIGHT; OVALOCYTES SLIGHT; PLATELET COMMENT ADEQUATE; POLYCHROMASIA SLIGHT; TARGET CELLS SLIGHT
--- NOTE | 2020-05-12 08:37 | PDOC PROGRESS REPORT ---
Subjective Date:: 05/12/20 Reason For Visit: ACUTE CHOLECYSTITIS,RIGHT LOWER LOBE CAVITARY LUNG Physical Exam Vital Signs: Temp Pulse Resp BP Pulse Ox 99.3 F 87 20 145/80 H 96 05/12/20 03:49 05/12/20 07:00 05/12/20 03:49 05/12/20 03:49 05/12/20 03:49 Intake & Output 05/11/20 05/12/20 05/13/20 06:59 06:59 06:59 Intake Total 3552 1490 Output Total 850 825 Balance 2702 665 Weight 80.7 kg 82.9 kg Results Laboratory Results: 05/12/20 06:17 05/12/20 06:17 05/09/20 05/12/20 05/12/20 08:28 00:36 06:17 WBC 14.4 H 18.7 H RBC 2.73 L 2.89 L Hgb 7.7 L 8.0 L Hct 22.3 L 23.5 L MCV 82 81 MCH 28.2 27.6 MCHC 34.5 33.9 RDW 15.6 H 15.7 H Plt Count 242 281 Seg Neutrophils % 81.5 H Not Reportable Sodium Potassium Chloride Carbon Dioxide Anion Gap BUN Creatinine Est GFR ( Amer) Glucose Calcium Total Bilirubin AST Alkaline Phosphatase Total Protein Albumin Blood Type B POSITIVE Antibody Screen NEGATIVE 05/12/20 06:17 WBC RBC Hgb Hct MCV MCH MCHC RDW Plt Count Seg Neutrophils % Sodium 134.7 L Potassium 3.3 L Chloride 110 H Carbon Dioxide 18 L Anion Gap 7 BUN 45 H Creatinine 1.38 H Est GFR ( Amer) > 60 Glucose 101 Calcium 7.9 L Total Bilirubin 3.4 H AST 37 Alkaline Phosphatase 217 H Total Protein 6.0 L Albumin 2.1 L Blood Type Antibody Screen 05/06/20 15:10 Gallbladder Fungal Smear - Final 05/06/20 15:10 Gallbladder Fungal Smear - Final 05/07/20 09:49 Blood Blood Culture (PCR) - Final Serratia Marcescens 05/07/20 09:49 Blood Blood Culture - Final Serratia Marcescens 05/05/20 08:30 Creatine Kinase < 20 L Impressions: Abdomen Ultrasound 05/05/20 08:46 IMPRESSION: 1. Diffuse gallbladder wall thickening, pericholecystic fluid, sludge and positive Salgado's sign - these findings are concerning for an acute cholecystitis. 2. The mid and distal abdominal aorta are obscured by overlying bowel. Abdomen MRI 05/05/20 11:39 IMPRESSION: Pericholecystic fluid consistent with cholecystitis. No dilated common bile duct. Parenchymal opacities at the lung bases with possible right lung mass. Chest X-Ray 05/05/20 14:09 IMPRESSION: Cavitary right lower lobe lesion. Recommend CT with contrast. Chest CT 05/05/20 14:49 IMPRESSION: Pulmonary nodules of varying size that exhibit varying degrees of cavitation and tree-in-bud nodular opacities. These patterns of disease can be the result of a number of different conditions, however it is important to note that tuberculosis can manifest as both of these patterns and should be excluded. Guidance Needle Placement CT 05/06/20 14:00 IMPRESSION: CT GUIDED CHOLECYSTOSTOMY. NO IMMEDIATE COMPLICATIONS. Percutaneous Drainage 05/06/20 14:00 IMPRESSION: CT GUIDED CHOLECYSTOSTOMY. NO IMMEDIATE COMPLICATIONS. Cholangiogram 05/09/20 00:00 IMPRESSION: INTRAOPERATIVE CHOLANGIOGRAM. Fluoroscopy 05/09/20 00:00 IMPRESSION: INTRAOPERATIVE CHOLANGIOGRAM. Assessment & Plan - Time Anticipated Discharge Disposition: Home, Self Care Anticipated Discharge Timeframe: within 72 hours - Plan Summary Plan Summary: 34-year-old male status post laparoscopic cholecystectomy for acute cholecystiti s. The patient continues to have elevated bilirubin. It is trending downward, but remains at 3.4 today. If his hyperbilirubinemia persists, he should be reevaluated by gastroenterology. The patient is tolerating a diet, and having small bowel movements. He does complain of constipation. Add Dulcolax today. The patient should be fit for discharge from a surgical standpoint. Leave drain in place for now. Follow-up in 7 to 10 days for drain removal. The patient was discussed today with Dr. Sequeira, to coordinate his care. Surgery will continue to follow with you, as long as the patient remains admitted to the hospital.
[2020-05-12] MEDS ORDERED: DOCUSATE SODIUM 100 MG CAPSULE PO ONE (09:00)
[2020-05-12 09:39] VITALS: BP 131/72
[2020-05-12] MEDS: FAMOTIDINE INJ/PF 20 MG/2 ML SDV IV SCH (10:03)
[2020-05-12] MEDS: HEPARIN SOD (PORCINE) 5,000 UNIT/ML 1 ML VIAL SUBCUT SCH (10:03)
--- NOTE | 2020-05-12 15:23 | PDOC DISCHARGE SUMMARY ---
Impression - Admit/DC Date/PCP Admission Date/Primary Care Provider: 05/05/20 21:53 Discharge Date: 05/12/20 - Discharge Diagnosis (1) Acute cholecystitis Is this a current diagnosis for this admission?: Yes (2) Acute kidney injury Is this a current diagnosis for this admission?: Yes (3) Cavitary lesion of lung Is this a current diagnosis for this admission?: Yes (4) Elevated bilirubin Is this a current diagnosis for this admission?: Yes (5) Gram-negative bacteremia Is this a current diagnosis for this admission?: Yes (6) Hyponatremia Is this a current diagnosis for this admission?: Yes (7) Sepsis Is this a current diagnosis for this admission?: Yes (8) Serratia septicemia Is this a current diagnosis for this admission?: Yes (9) Iron deficiency anemia Is this a current diagnosis for this admission?: Yes - Assessment Summary: Postop day #2 status post cholecystectomy. He seems to be doing very well and is feeling better. Tolerating regular diet. Creatinine has improved, trending towards normal. Hemoglobin was low as a result of his iron deficiency and his hemodilution from the fluids he has been getting. We are giving him 2 units of packed red cells today. We will continue antibiotics while he is in the hosp ital. He is anxious to go home. If his vital signs are stable and his hemoglobin is good after transfusion we might be able to consider sending him home at that time. He should be able to finish the work-up for TB rule out at home. I think it is low probability that he has TB. - Additional Information Resuscitation Status: Full Code Discharge Diet: Regular Discharge Activity: Balance Activity w/Rest, No Lifting Over 10 Pounds, No Lifting/Push/Pulling, No tub bath Referrals: HUNTER MENDOZA MD [ACTIVE STAFF] - 05/25/20 1:45 pm (7-10 days) Prescriptions: Oxycodone HCl/Acetaminophen [Percocet 5-325 mg Tablet] 1 tab PO Q6HP PRN #20 tablet PRN Reason: Cefpodoxime Proxetil [Vantin 200 mg Tablet] 200 mg PO BID #20 tablet Home Medications: Ibuprofen [Motrin 800 mg Tablet] 800 mg PO TIDP PRN 05/06/20 Cefpodoxime Proxetil [Vantin 200 mg Tablet] 200 mg PO BID #20 tablet 05/12/20 Oxycodone HCl/Acetaminophen [Percocet 5-325 mg Tablet] 1 tab PO Q6HP PRN #20 tablet 05/12/20 History of Present Illiness History of Present Illness: CHRISTOFER ANTHONY is a 34 year old male with no significant past medical history who presents with 2 weeks duration of epigastric pain. He describes the pain as constant, sharp, nonradiating, 10/10 in intensity, aggravated by eating. Initially when the pain started he used to get some relief from [id number] ibuprofen and Tylenol but the past week nothing has been helping him for the pain. Associated with this he also reports that he feels nauseated, episodes of nonbloody, nonbilious vomiting of ingested matter. He also endorses intermit tent fever and decreased appetite. He denies any diarrhea, hematochezia, melena or hematemesis. Patient states that he has lost some weight in the past 2 weeks but denies any cough, chest pain, night sweating, shortness of breath, skin rash. He has no history of travel out of the country, incarceration or any close contact with a chronic cougher. Hospital Course Hospital Course: We tried to treat him conservatively with fluids antibiotics, but his clinical scenario did not improve, so he ultimately had a cholecystectomy. The day after surgery, he was already feeling much better. He was able to progress to eating regular food without any trouble. His renal function began to improve and his bilirubin started to trend down. He grew Serratia out of the blood. It was sensitive to third and fourth generation cephalosporins, so I am sending him home with 10 more days of Cefpodoxime. He has been on meropenem for several days now. His iron levels in his blood were low, so I recommended he take an iron supplement twice a day for a few months to build up his iron stores. He verbalizes understanding. We collected a couple of specimens here to rule him out for TB, because of a report on a CT of his chest, but this patient has no risk factors for TB. He had an indeterminate test on his QuantiFERON assay, but due to prolonged transit time it read as indeterminant as frequently happens with these test. I do not think this patient has TB. His first AFB smear was negative. He is in good shape and wants to go home. Were having him isolate at home while his remaining smears result. His labs and examination were reassuring and he was discharged in stable condition. He will follow-up with general surgery in 1 week. He is to leave the drain in place. He was given bathing and activity instructions. Physical Exam Vital Signs: Temp Pulse Resp BP Pulse Ox 98.0 F 67 18 131/72 H 97 05/12/20 10:00 05/12/20 14:00 05/12/20 08:04 05/12/20 08:04 05/12/20 08:04 Intake & Output 05/11/20 05/12/20 05/13/20 06:59 06:59 06:59 Intake Total 3552 1490 Output Total 850 825 Balance 2702 665 Weight 80.7 kg 82.9 kg General appearance: PRESENT: no acute distress, well-developed, well-nourished Head exam: PRESENT: atraumatic, normocephalic Eye exam: PRESENT: conjunctiva pink. ABSENT: scleral icterus Mouth exam: PRESENT: moist Respiratory exam: PRESENT: clear to auscultation angie. ABSENT: rales, rhonchi, wheezes Cardiovascular exam: PRESENT: RRR. ABSENT: diastolic murmur, rubs, systolic murmur GI/Abdominal exam: PRESENT: normal bowel sounds, soft, mild appropriate postsurgical tenderness with surgical drain in place. ABSENT: distended, guarding, mass, organolmegaly, rebound Neurological exam: PRESENT: alert, awake, oriented to person, oriented to place, oriented to time, oriented to situation Psychiatric exam: PRESENT: appropriate affect, normal mood Skin exam: PRESENT: dry, intact, warm Results Laboratory Results: WBC 18.7 10^3/uL (4.0-10.5) H 05/12/20 06:17 RBC 2.89 10^6/uL (4.35-5.55) L 05/12/20 06:17 Hgb 8.0 g/dL (13.5-17.0) L 05/12/20 06:17 Hct 23.5 % (37.9-51.0) L 05/12/20 06:17 MCV 81 fl (80-97) 05/12/20 06:17 MCH 27.6 pg (27.0-33.4) 05/12/20 06:17 MCHC 33.9 g/dL (32.0-36.0) 05/12/20 06:17 RDW 15.7 % (11.5-14.0) H 05/12/20 06:17 Plt Count 281 10^3/uL (150-450) 05/12/20 06:17 Lymph % (Auto) Not Reportable 05/12/20 06:17 [place] % (Auto) Not Reportable 05/12/20 06:17 Eos % (Auto) Not Reportable 05/12/20 06:17 Baso % (Auto) Not Reportable 05/12/20 06:17 Reticulocyte # 0.016 10^6/uL (0.028-0.122) L 05/09/20 12:30 Absolute Neuts (auto) Not Reportable 05/12/20 06:17 Absolute Lymphs (auto) Not Reportable 05/12/20 06:17 Absolute Monos (auto) Not Reportable 05/12/20 06:17 Absolute Eos (auto) Not Reportable 05/12/20 06:17 Absolute Basos (auto) Not Reportable 05/12/20 06:17 Total Counted 100 05/12/20 06:17 Seg Neutrophils % Not Reportable 05/12/20 06:17 Seg Neuts % (Manual) 89 % (42-78) H 05/12/20 06:17 Band Neutrophils % 1 % (3-5) L 05/05/20 08:30 Lymphocytes % (Manual) 4 % (13-45) L 05/12/20 06:17 Monocytes % (Manual) 4 % (3-13) 05/12/20 06:17 Eosinophils % (Manual) 3 % (0-6) 05/12/20 06:17 Basophils % (Manual) 0 % (0-2) 05/12/20 06:17 Abs Neuts (Manual) 16.6 10^3/uL (1.7-8.2) H 05/12/20 06:17 Abs Lymphs (Manual) 0.7 10^3/uL (0.5-4.7) 05/12/20 06:17 Abs Monocytes (Manual) 0.7 10^3/uL (0.1-1.4) 05/12/20 06:17 Absolute Eos (Manual) 0.6 10^3/uL (0.0-0.6) 05/12/20 06:17 Abs Basophils (Manual) 0.0 10^3/uL (0.0-0.2) 05/12/20 06:17 Toxic Vacuolation PRESENT 05/05/20 08:30 Platelet Comment ADEQUATE 05/12/20 06:17 Polychromasia SLIGHT 05/12/20 06:17 Anisocytosis SLIGHT 05/12/20 06:17 Microcytosis SLIGHT 05/09/20 12:30 Target Cells SLIGHT 05/12/20 06:17 Ovalocytes SLIGHT 05/12/20 06:17 RBC Morph Comment NORMO-CYTIC/CHROMIC 05/05/20 08:30 Retic Count (auto) 0.60 % (0.66-2.85) L 05/09/20 12:30 PT 15.7 SEC (11.4-15.4) H 05/05/20 08:30 INR 1.23 05/05/20 08:30 Sodium 134.7 mmol/L (137-145) L 05/12/20 06:17 Potassium 3.3 mmol/L (3.6-5.0) L 05/12/20 06:17 Chloride 110 mmol/L (98-107) H 05/12/20 06:17 Carbon Dioxide 18 mmol/L (22-30) L 05/12/20 06:17 Anion Gap 7 (5-19) 05/12/20 06:17 BUN 45 mg/dL (7-20) H 05/12/20 06:17 Creatinine 1.38 mg/dL (0.52-1.25) H 05/12/20 06:17 Est GFR ( Amer) > 60 (>60) 05/12/20 06:17 Est GFR (MDRD) Non-Af 58 (>60) L 05/12/20 06:17 Glucose 101 mg/dL (75-110) 05/12/20 06:17 POC Glucose 112 mg/dL (70-110) H 05/09/20 06:02 Lactic Acid 0.9 mmol/L (0.7-2.1) 05/05/20 20:29 Calcium 7.9 mg/dL (8.4-10.2) L 05/12/20 06:17 Magnesium 2.8 mg/dL (1.6-2.3) H 05/10/20 04:18 Iron 40.2 ug/dL (49-181) L 05/09/20 12:30 TIBC 202 ug/dL (250-450) L 05/09/20 12:30 % Saturation 20 % 05/09/20 12:30 Ferritin 789.00 ng/mL (17.9-464.0) H 05/09/20 12:30 Total Bilirubin 3.4 mg/dL (0.2-1.3) H 05/12/20 06:17 Direct Bilirubin 2.5 mg/dL (0.0-0.4) H 05/12/20 06:17 Neonat Total Bilirubin Not Reportable 05/12/20 06:17 Neonat Direct Bilirubin Not Reportable 05/12/20 06:17 Neonat Indirect Bili Not Reportable 05/12/20 06:17 AST 37 U/L (17-59) 05/12/20 06:17 ALT 22 U/L (<50) 05/12/20 06:17 Alkaline Phosphatase 217 U/L (38-126) H 05/12/20 06:17 Creatine Kinase < 20 U/L (55-170) L 05/05/20 08:30 Total Protein 6.0 g/dL (6.3-8.2) L 05/12/20 06:17 Albumin 2.1 g/dL (3.5-5.0) L 05/12/20 06:17 Lipase 19.8 U/L (23-300) L 05/05/20 08:30 Vitamin B12 805.0 pg/mL (239-931) 05/09/20 12:30 Folate 11.30 ng/mL (>2.76) 05/09/20 12:30 Urine Color ASHLEY 05/05/20 08:30 Urine Appearance CLOUDY 05/05/20 08:30 Urine pH 5.0 (5.0-9.0) 05/05/20 08:30 Ur Specific Robert 1.016 05/05/20 08:30 Urine Protein 30 mg/dL (NEGATIVE) H 05/05/20 08:30 Urine Glucose (UA) NEGATIVE mg/dL (NEGATIVE) 05/05/20 08:30 Urine Ketones NEGATIVE mg/dL (NEGATIVE) 05/05/20 08:30 Urine Blood SMALL (NEGATIVE) H 05/05/20 08:30 Urine Nitrite NEGATIVE (NEGATIVE) 05/05/20 08:30 Urine Bilirubin SMALL (NEGATIVE) H 05/05/20 08:30 Urine Urobilinogen 4.0 mg/dL (<2.0) H 05/05/20 08:30 Ur Leukocyte Esterase NEGATIVE (NEGATIVE) 05/05/20 08:30 Urine WBC (Auto) 12 /HPF 05/05/20 08:30 Urine RBC (Auto) 2 /HPF 05/05/20 08:30 U Hyaline Cast (Auto) 1 /LPF 05/05/20 08:30 Urine Bacteria (Auto) TRACE /HPF 05/05/20 08:30 Squamous Epi Cells Auto <1 /HPF 05/05/20 08:30 Urine Mucus (Auto) RARE /LPF 05/05/20 08:30 Urine Creatinine 152.8 mg/dL (24-392) 05/11/20 18:15 Protein/Creatinin Ratio 1.4 mg/mg (0.0-0.2) H 05/11/20 18:15 Urine Total Protein 213.1 mg/dL (<12) H 05/11/20 18:15 Urine Ascorbic Acid NEGATIVE (NEGATIVE) 05/05/20 08:30 Influenza A (RT-PCR) NEGATIVE (NEGATIVE) 05/06/20 02:43 Influenza B (RT-PCR) NEGATIVE (NEGATIVE) 05/06/20 02:43 RSV (RT-PCR) NEGATIVE (NEGATIVE) 05/06/20 02:43 SARS-CoV-2 Rap RNA(RT-PCR) NEGATIVE (NEGATIVE) 05/06/20 02:43 TB Test (QFT) Gold Plus Indeterminate (Negative) A 05/06/20 01:10 TB Test (QFT) Nil 0.03 IU/mL (.) 05/06/20 01:10 TB Test (QFT) Mitogen 0.05 IU/mL (.) 05/06/20 01:10 TB Test (QFT) Ag 1 0.03 IU/mL (.) 05/06/20 01:10 TB Test (QFT) Ag 2 0.03 IU/mL (.) 05/06/20 01:10 TB Test (QFT) Criteria Comment (.) 05/06/20 01:10 AFB Smear NO ACID FAST BACILLI (NO AFB SEEN) 12/21/20 18:34 Blood Type B POSITIVE 05/09/20 08:28 Blood Type Confirm B POSITIVE 05/11/20 09:38 Antibody Screen NEGATIVE 05/09/20 08:28 Crossmatch See Detail 05/09/20 08:28 Impressions: Abdomen Ultrasound 05/05/20 08:46 IMPRESSION: 1. Diffuse gallbladder wall thickening, pericholecystic fluid, sludge and positive Salgado's sign - these findings are concerning for an acute cholecystitis. 2. The mid and distal abdominal aorta are obscured by overlying bowel. Abdomen MRI 05/05/20 11:39 IMPRESSION: Pericholecystic fluid consistent with cholecystitis. No dilated common bile duct. Parenchymal opacities at the lung bases with possible right lung mass. Chest X-Ray 05/05/20 14:09 IMPRESSION: Cavitary right lower lobe lesion. Recommend CT with contrast. Chest CT 05/05/20 14:49 IMPRESSION: Pulmonary nodules of varying size that exhibit varying degrees of cavitation and tree-in-bud nodular opacities. These patterns of disease can be the result of a number of different conditions, however it is important to note that tuberculosis can manifest as both of these patterns and should be excluded. Guidance Needle Placement CT 05/06/20 14:00 IMPRESSION: CT GUIDED CHOLECYSTOSTOMY. NO IMMEDIATE COMPLICATIONS. Percutaneous Drainage 05/06/20 14:00 IMPRESSION: CT GUIDED CHOLECYSTOSTOMY. NO IMMEDIATE COMPLICATIONS. Cholangiogram 05/09/20 00:00 IMPRESSION: INTRAOPERATIVE CHOLANGIOGRAM. Fluoroscopy 05/09/20 00:00 IMPRESSION: INTRAOPERATIVE CHOLANGIOGRAM. Plan Time Spent: Greater than 30 Minutes Stroke Is this a Stroke Patient?: No Acute Heart Failure Is this a Heart Failure Patient?: No
[2020-05-12] MEDS ORDERED: DOCUSATE SODIUM 100 MG CAPSULE PO SCH (18:00)
== END 2020-05-12 15:21 | disposition home or self-care (01) | DRG 854 ==
LOC: ER 08:26 → EH 21:53 → 3S 05-06 18:47 → UNDODISIN 05-12 11:55
PROVIDERS: ADMIT Student in an Organized Health Care Education/Training Program; ATTEND Family Medicine
PROC: 0F9430Z Drainage of Gallbladder with Drainage Device, Percutaneous Approach (ICD-10-PCS; 2020-05-06)
PROC: 0W9J40Z Drainage of Pelvic Cavity with Drainage Device, Percutaneous Endoscopic Approach (ICD-10-PCS; 2020-05-09)
PROC: BF131ZZ Fluoroscopy of Gallbladder and Bile Ducts using Low Osmolar Contrast (ICD-10-PCS; 2020-05-09)
PROC: 0FT44ZZ Resection of Gallbladder, Percutaneous Endoscopic Approach (ICD-10-PCS; principal; 2020-05-09 08:00)
PROC: 30233N1 Transfusion of Nonautologous Red Blood Cells into Peripheral Vein, Percutaneous Approach (ICD-10-PCS; 2020-05-11)
DX: A41.53 Sepsis due to Serratia (principal); N17.9 Acute kidney failure, unspecified; E87.1 Hypo-osmolality and hyponatremia; K80.00 Calculus of gallbladder with acute cholecystitis without obstruction; R91.1 Solitary pulmonary nodule; D50.9 Iron deficiency anemia, unspecified; F17.210 Nicotine dependence, cigarettes, uncomplicated; R65.20 Severe sepsis without septic shock; R94.5 Abnormal results of liver function studies; Z20.828 Contact with and (suspected) exposure to other viral communicable diseases
CPT/HCPCS: 36415; 36430; 71045; 71260; 74181; 74300; 75989; 76705; 77012; 790; 80053; 80076; 81001; 82550; 82570; 82607; 82728; 82746; 82962; 83540; 83550; 83605; 83690; 83735; 84156; 85025; 85045; 85610; 86480; 86850; 86900; 86901; 86920; 87015; 87040; 87070; 87077; 87101; 87116; 87150; 87186; 87206; 88304; 93005; 93010; 94799; 96361; 96365; 96366; 96367; 96368; 96375; 96376; 99140; 99285; 0241U; C1713; C1729; C1769; C1894; C9803; J0131; J0330; J0610; J0744; J1100; J1170; J1644; J2250; J2270; J2405; J2543; J2704; J3010; J3490; J7030; J7050; J7060; P9016; S0028

== ENCOUNTER 2020-05-22 09:21 | Emergency (ER) | payer SELFPAY ==
[2020-05-22 09:33] VITALS: BP 151/102
--- NOTE | 2020-05-22 11:52 | ER Document Report ---
HPI - HPI Time Seen by Provider: 05/22/20 11:39 Pain Level: Denies Notes: This is a 34-year-old male presenting to the emergency department with concern that his postsurgical drain had fallen out. Patient reports he had a cholecystectomy done here on 05/09. He was due to have the drain removed on 05/25/2020. He states today when he change the dressing the wound drain fell out. He denies any increased pain, fever, chills or any other complaints. - REPRODUCTIVE Reproductive: DENIES: : Past Medical History - General Information source: Patient - Social History Smoking Status: Current Every Day Smoker Drug Abuse: Other - Denies Family History: Reviewed & Not Pertinent - Medical History Medical History: Negative Psychiatric Medical History: Denies: Hx Depression Past Surgical History: Reports: Hx Cholecystectomy Vertical Provider Document - CONSTITUTIONAL Notes: PHYSICAL EXAMINATION: GENERAL: Well-appearing, well-nourished and in no acute distress. HEAD: Atraumatic, normocephalic. EYES: Pupils equal round and reactive to light, extraocular movements intact, sclera anicteric, conjunctiva are normal. ENT: Nares patent, oropharynx clear without exudates. Moist mucous membranes. NECK: Normal range of motion, supple without lymphadenopathy LUNGS: Breath sounds clear to auscultation bilaterally and equal. No wheezes rales or rhonchi. HEART: Tachycardic ABDOMEN: Soft, nontender, nondistended abdomen. No guarding, no rebound. No masses appreciated. Musculoskeletal: Normal range of motion, no pitting or edema. No cyanosis. NEUROLOGICAL: Cranial nerves grossly intact. Normal speech, normal gait. Normal sensory, motor exams PSYCH: Normal mood, normal affect. SKIN: Incision noted to right upper quadrant, dressing in place. Course - Re-evaluation Re-evalutation: 05/22/20 11:52 Called and spoke with surgical list, Dr. Dias. Patient's vital signs were abnormal on arrival with a heart rate of 140. This was rechecked continued to be in the 120s to 140s. Patient overall appears well and nontoxic. I requested that patient stay, have lab work drawn and receive some IV fluids to assist in bringing his heart rate down. Patient adamantly declines this stating that he has not staying here longer, he states we are not going to "stick him with more needles". Patient is of sound mind and is able to make his own decisions. He will leave AGAINST MEDICAL ADVICE at this time as I told him that I cannot safely discharge someone who recently underwent surgery and has a heart rate in the 140s. This conversation was witnessed by LILY Villarreal. - Vital Signs Vital signs: Temp Pulse Resp BP Pulse Ox 99.7 F 143 H 18 151/102 H 91 L 05/22/20 09:29 05/22/20 09:29 05/22/20 09:29 05/22/20 09:29 05/22/20 09:29 - Laboratory Results Critical Laboratory Results Reviewed: No Critical Results - Patient refused labs - Radiology Results Critical Radiology Results Reviewed: No Critical Results - Patient refused work- up Discharge - Discharge Clinical Impression: Surgical drain malfunction, Tachycardia Condition: Fair Disposition: AGAINST MEDICAL ADVICE
== END 2020-05-22 12:17 | disposition left against medical advice (07) ==
LOC: ER 09:21
DX: T85.618A Breakdown (mechanical) of other specified internal prosthetic devices, implants and grafts, initial encounter (principal); Y73.8 Miscellaneous gastroenterology and urology devices associated with adverse incidents, not elsewhere classified; Y83.6 Removal of other organ (partial) (total) as the cause of abnormal reaction of the patient, or of later complication, without mention of misadventure at the time of the procedure; R00.0 Tachycardia, unspecified; F17.200 Nicotine dependence, unspecified, uncomplicated; Z90.49 Acquired absence of other specified parts of digestive tract; Z53.29 Procedure and treatment not carried out because of patient's decision for other reasons
CPT/HCPCS: 99282

== ENCOUNTER 2020-06-06 17:01 | Inpatient (IN) | payer SELFPAY ==
--- NOTE | 2020-06-06 17:31 | ER Document Report ---
ED Medical Screen (RME) - General Chief Complaint: Swelling Stated Complaint: LEG SWELLING,TESTICULAR SWELLING Time Seen by Provider: 06/06/20 17:24 Mode of Arrival: Ambulatory Information source: Patient - HPI Patient complains to provider of: Leg swelling Notes: 06/06/20 17:29 Patient here with complaints of bilateral leg swelling. The patient had his gallbladder removed about a month ago. Has been having some swelling of the legs for the last several weeks. Seems to be getting worse. He states that he now has swelling in his genital area as well. He does complain of some occasional chest pain or shortness of breath. He denies any history of congestive heart failure or heart disease. Exam: Nontoxic, no distress. Pitting edema to the bilateral lower extremities with some mild pitting edema to the lower abdomen as well. Unable to visualize the genitals in triage. Tachycardia. An initial examination was made on the patient as part of the triage process, and it was determined a more comprehensive evaluation was necessary. Initial orders were placed and patient was transferred to another provider in the ED who assumed care and finished evaluation and plan. - Related Data Allergies/Adverse Reactions: No Known Allergies Allergy (Verified 06/06/20 17:19) Home Medications: iron. pepto bismol. tylenol Past Medical History - Social History Chew tobacco use (# tins/day): No Frequency of alcohol use: None Drug Abuse: None Psychiatric Medical History: Denies: Hx Depression Past Surgical History: Reports: Hx Cholecystectomy Physical Exam - Vital signs Vitals: Temp Pulse Resp BP Pulse Ox 98.8 F 135 H 16 158/103 H 97 06/06/20 17:13 06/06/20 17:13 06/06/20 17:13 06/06/20 17:13 06/06/20 17:13 Course - Vital Signs Vital signs: Temp Pulse Resp BP Pulse Ox 98.8 F 135 H 16 158/103 H 97 06/06/20 17:13 06/06/20 17:13 06/06/20 17:13 06/06/20 17:13 06/06/20 17:13
--- NOTE | 2020-06-06 17:55 | RADIOLOGY REPORT (SQ) ---
EXAM DESCRIPTION: CHEST 2 VIEWS IMAGES COMPLETED DATE/TIME: 06/06/2020 2:41 pm REASON FOR STUDY: leg swelling, CP, SOB COMPARISON: None. EXAM PARAMETERS: NUMBER OF VIEWS: two views TECHNIQUE: Digital Frontal and Lateral radiographic views of the chest acquired. RADIATION DOSE: NA LIMITATIONS: none FINDINGS: LUNGS AND PLEURA: Bilateral patchy airspace opacities are nonspecific. Moderate right ple ural effusion. There may be a trace left pleural effusion. No pneumothorax. MEDIASTINUM AND HILAR STRUCTURES: No masses or contour abnormalities. HEART AND VASCULAR STRUCTURES: Prominence of the cardiac silhouette may be due to AP technique. No s ignificant pulmonary vascular congestion. BONES: No acute findings. HARDWARE: None in the chest. OTHER: No other significant finding. IMPRESSION: Bilateral patchy airspace opacities and right pleural effusion are new/progressed from p rior. Findings could be due to a new infection, however given presence of nodules on previous chest CT, recommend repeat chest CT to evaluate and exclude other pathology. TECHNICAL DOCUMENTATION: JOB ID: [id number] 2010 [employer]- All Rights Reserved Reading location - IP/workstation name: [email or web address]
[2020-06-06 18:40] LABS: ALBUMIN 2.8 g/dL (3.5-5.0); ALKALINE PHOSPHATASE 344 U/L (38-126); ANION GAP 5 (5-19); ASPARTATE AMINO TRANSFERASE 27 U/L (17-59); BILIRUBIN,DIRECT 0.8 mg/dL (0.0-0.4); BLOOD UREA NITROGEN 17 mg/dL (7-20); CALCIUM 8.7 mg/dL (8.4-10.2); CARBON DIOXIDE 31 mmol/L (22-30); CHLORIDE 103 mmol/L (98-107); CREATINE KINASE 41 U/L (55-170); GLUCOSE 100 mg/dL (75-110); POTASSIUM 4.8 mmol/L (3.6-5.0); TOTAL PROTEIN 6.7 g/dL (6.3-8.2)
[2020-06-06 18:52] LABS: CREATINE KINASE MB 0.53 ng/mL (<4.55)
[2020-06-06 18:54] LABS: TROPONIN I 0.058 ng/mL
[2020-06-06 19:08] LABS: ABSOLUTE BASOPHILS # (AUTO) 0.1 10^3/uL (0.0-0.2); ABSOLUTE EOSINOPHILS # (AUTO) 0.1 10^3/uL (0.0-0.6); LYMPHOCYTES % (AUTO) 9.2 % (13-45); TOTAL CELLS COUNTED % (AUTO) 100 %
[2020-06-06 19:13] LABS: ABSOLUTE LYMPHOCYTES (AUTO) 1.3 10^3/uL (0.5-4.7); ABSOLUTE MONOCYTES (AUTO) 0.7 10^3/uL (0.1-1.4); ABSOLUTE NEUT (AUTO) 12.3 10^3/uL (1.7-8.2); BASOPHILS % (AUTO) 0.7 % (0-2); EOSINOPHILS % (AUTO) 0.5 % (0-6); HEMATOCRIT 21.7 % (37.9-51.0); MEAN CORPUSCULAR HEMOGLOBIN 28.1 pg (27.0-33.4); MEAN CORPUSCULAR HGB CONC 32.5 g/dL (32.0-36.0); MONOCYTES % (AUTO) 4.8 % (3-13); PLATELET COUNT 416 10^3/uL (150-450); RED CELL DISTRIBUTION WIDTH 19.3 % (11.5-14.0); SEGMENTED NEUTROPHILS % (AUTO) 84.8 % (42-78); WHITE BLOOD COUNT 14.5 10^3/uL (4.0-10.5)
[2020-06-06 19:15] LABS: MEAN CORPUSCULAR VOLUME 87 fl (80-97)
[2020-06-06] MEDS ORDERED: NORMAL SALINE 250 ML IV PRN ×2 (19:35)
[2020-06-06] MEDS ORDERED: FUROSEMIDE INJ/PF 40 MG/4 ML SDV IV ONE (19:36)
--- NOTE | 2020-06-06 19:45 | ER Document Report ---
ED General - General Chief Complaint: Swelling Stated Complaint: LEG SWELLING,TESTICULAR SWELLING Time Seen by Provider: 06/06/20 17:24 Mode of Arrival: Ambulatory - HPI Notes: Patient is a 34-year-old male who presents emergency department for evaluation of shortness of breath, swelling in his legs and scrotum. The patient had a cholecystectomy performed in this facility last month. He states that since then he has had continued swelling of his legs. He states he was told to keep his legs elevated. He states that he has become more more short of breath with exertion. He has had some paroxysmal nocturnal dyspnea. He denies orthopnea, but he states he already sleeps in a recumbent position, has never really laid flat. He states that a few days ago he had severe indigestion with one episode of nonbloody, nonbilious emesis. Yesterday his left arm felt numb and heavy. The patient has been taking his iron as prescribed. - Related Data Allergies/Adverse Reactions: No Known Allergies Allergy (Verified 06/06/20 17:19) Home Medications: iron. pepto bismol. tylenol Past Medical History - General Information source: Patient - Social History Smoking Status: Former Smoker Chew tobacco use (# tins/day): No Frequency of alcohol use: None Drug Abuse: None Family History: Reviewed & Not Pertinent - Medical History Medical History: Other - Anemia Psychiatric Medical History: Denies: Hx Depression Past Surgical History: Reports: Hx Cholecystectomy Review of Systems - Review of Systems Constitutional: Weakness, Weight gain EENT: No symptoms reported Cardiovascular: See HPI Respiratory: See HPI Gastrointestinal: See HPI Genitourinary: No symptoms reported Male Genitourinary: See HPI Musculoskeletal: See HPI Skin: No symptoms reported Neurological/Psychological: No symptoms reported Physical Exam - Vital signs Vitals: Temp Pulse Resp BP Pulse Ox 98.8 F 135 H 16 158/103 H 97 06/06/20 17:13 06/06/20 17:13 06/06/20 17:13 06/06/20 17:13 06/06/20 17:13 - Notes Notes: Is a 34-year-old male who appears her stated age, no acute distress. Vital signs reviewed, please refer to chart. Head is normocephalic, atraumatic. Pupils equal round, reactive to light. Neck is supple without meningismus. Heart is tachycardic with normal S1, S2. Lungs reveal bibasilar rales. Abdomen is mildly distended, nontender, normoactive bowel sounds throughout. Easily reducible umbilical hernia. Patient with significant pitting edema all the way through the thighs. Extremities without cyanosis, clubbing. Posterior calves are nontender. Peripheral pulses are equal. Skin is warm and dry. Patient is awake, alert, neurological exam is nonfocal. General exam performed with Candice Warren RN, present in the room. Patient has marked scrotal and penile edema without any signs of skin breakdown. No dis charge. Course - Re-evaluation Re-evalutation: 06/06/20 19:44 Patient presents the emergency department for evaluation. He had laboratory investigations and imaging is ordered through triage. Laboratory investigations revealed a significant anemia. Type and cross for 2 units was ordered. Clinically the patient is in clear congestive heart failure, 40 mg of IV Lasix was ordered. His chest x-ray reveals possible infiltrative process, CT angiogram of the chest is ordered for clarification. Patient is currently stable, we will continue to monitor. 06/06/20 22:28 CT scan shows findings consistent with an atypical infectious process. The patient does have a leukocytosis. I have added blood cultures and a lactic acid. His Covid swab and the remainder of his respiratory panel is negative. At this time this physician strongly favors atypical edema as the etiology for this patient's imaging given his physical findings, but he does have a leukocytosis and elevated heart rate. I will go ahead and order Rocephin and Zi thromax. I am notified that inpatient medicine attending is currently occupied. Patient awaiting admission. 06/06/20 22:33 After reviewing patient's history, he was hospitalized approximately 1 month ago with acute cholecystitis. Decision was made to cover infection with hospital- acquired pneumonia medications. Rocephin and Zithromax were canceled in favor of cefepime and vancomycin. 06/06/20 22:52 Dr. Jackson will come and evaluate the patient. - Vital Signs Vital signs: Temp Pulse Resp BP Pulse Ox 98.2 F 107 H 23 H 133/90 H 94 06/07/20 00:00 06/06/20 23:37 06/07/20 00:00 06/07/20 00:00 06/07/20 00:00 - Laboratory Results Result Diagrams: 06/06/20 18:55 06/06/20 17:50 Laboratory Results Interpreted: 06/06/20 06/06/20 06/06/20 17:50 17:50 18:55 WBC 14.5 H RBC 2.50 L Hgb 7.0 L Hct 21.7 L RDW 19.3 H Lymph % (Auto) 9.2 L Absolute Neuts (auto) 12.3 H Seg Neutrophils % 84.8 H Carbon Dioxide 31 H Direct Bilirubin 0.8 H Alkaline Phosphatase 344 H Creatine Kinase 41 L NT-Pro-B Natriuret Pep 46395 H Albumin 2.8 L Urine Blood Crossmatch 06/06/20 06/06/20 20:00 20:20 WBC RBC Hgb Hct RDW Lymph % (Auto) Absolute Neuts (auto) Seg Neutrophils % Carbon Dioxide Direct Bilirubin Alkaline Phosphatase Creatine Kinase NT-Pro-B Natriuret Pep Albumin Urine Blood SMALL H Crossmatch See Detail Critical Laboratory Results Reviewed: No Critical Results - Radiology Results Radiology Results Interpreted: 06/06/20 19:45 Chest X-Ray 06/06/20 17:29 IMPRESSION: Bilateral patchy airspace opacities and right pleural effusion are new/progressed from prior. Findings could be due to a new infection, however gi saroj presence of nodules on previous chest CT, recommend repeat chest CT to evaluate and exclude other pathology. 06/06/20 22:26 Chest X-Ray 06/06/20 17:29 IMPRESSION: Bilateral patchy airspace opacities and right pleural effusion are new/progressed from prior. Findings could be due to a new infection, however given presence of nodules on previous chest CT, recommend repeat chest CT to evaluate and exclude other pathology. Chest/Abdomen CTA 06/06/20 18:56 IMPRESSION: 1. Large right pleural effusion, scattered dense groundglass infiltrates, and scattered focal areas of peripheral consolidation in both lungs. Commonly reported imaging features of COVID-19 pneumonia are present. Other processes such as influenza pneumonia and organizing pneumonia, as can be seen with drug toxicity and connective tissue disease, can cause a similar imaging pattern. [PneTyp] 2. No CT evidence for pulmonary embolism. 3. Cardiomegaly Critical Radiology Results Reviewed: No Critical Results - EKG Interpretation by Me Additional EKG results interpreted by me: 06/06/20 22:29 Sinus tachycardia with a rate of 133 bpm. Normal axis and intervals. Nonspecific ST and T wave changes, but no acute elevation concerning for infarction. Patient has had nonspecific ST changes anteriorly which are unchanged, but he does have new lateral T wave inversions noted. This is when compared to prior study of May 10, 2020. Discharge - Discharge Clinical Impression: Anemia, Pleural effusion, right, Congestive heart failure Condition: Stable Disposition: ADMITTED INPATIENT Admitting Provider: Renetta
--- NOTE | 2020-06-06 20:33 | RADIOLOGY REPORT (SQ) ---
EXAM DESCRIPTION: Site: CTA CHEST RP: CT CHEST ANGIOGRAPHY WITH IV CONTRAST CLINICAL HISTORY: 34 years Male; eval for PE; TECHNIQUE: CT angiogram of the chest using intravenous contrast. MIP reconstructions were performed. All CT scans at this facility use dose modulation, iterative reconstruction, and/or weight based dosing when appropriate to reduce radiation dose to as low as reasonably achievable. COMPARISON: None. FINDINGS: Pulmonary arteries: No filling defects in the central pulmonary arteries. Lungs: Large right pleural effusion is average 4 cm AP thickness. There are scattered dense groundglass infiltrates in both lungs. The right middle lobe cavitary lesion has decreased significantly, now 1 cm diameter (previously 2.5 cm). There are several areas of peripheral consolidation bilaterally. No pneumothorax. Small left pleural effusion. Mediastinum: Heart is enlarged. No mediastinal adenopathy. No pericardial effusion. Bones:No acute bone findings. IMPRESSION: 1. Large right pleural effusion, scattered dense groundglass infiltrates, and scattered focal areas of peripheral consolidation in both lungs. Commonly reported imaging features of COVID-19 pneumonia are present. Other processes such as influenza pneumonia and organizing pneumonia, as can be seen with drug toxicity and connective tissue disease, can cause a similar imaging pattern. [PneTyp] 2. No CT evidence for pulmonary embolism. 3. Cardiomegaly
--- NOTE | 2020-06-06 20:34 | EKG REPORT ---
SEVERITY:- ABNORMAL ECG - SINUS TACHYCARDIA PROBABLE LEFT ATRIAL ABNORMALITY NONSPECIFIC T ABNORMALITIES, LATERAL LEADS : Confirmed by: Ruthann Adrian MD 06-Jun-2020 20:33:56
[2020-06-06 21:01] LABS: APPEARANCE,URINE CLEAR; BILIRUBIN,URINE NEGATIVE (NEGATIVE); COLOR,URINE STRAW; GLUCOSE, URINE NEGATIVE (NEGATIVE); KETONES,URINE NEGATIVE (NEGATIVE); LEUKOCYTE ESTERASE,URINE NEGATIVE (NEGATIVE); NITRITE,URINE NEGATIVE (NEGATIVE); PROTEIN,URINE NEGATIVE (NEGATIVE); URINE SPECIFIC GRAVITY 1.009; UROBILINOGEN,URINE NEGATIVE mg/dL (<2.0)
[2020-06-06] MEDS ORDERED: CEFTRIAXONE 1 GM/D5W RTU 50 ML IV ONE (22:27)
[2020-06-06] MEDS ORDERED: AZITHROMYCIN INJ 500 MG VIAL IV ONE (22:27)
[2020-06-06] MEDS ORDERED: VANCOMYCIN HCL INJ 1000 MG VIAL IV ONE (22:32)
[2020-06-06] MEDS ORDERED: CEFEPIME 2 GM/D5W RTU 2 GM/50 ML RTUPB IV ONE (22:32)
[2020-06-07] MEDS ORDERED: ONDANSETRON HCL INJ/PF 4 MG/2 ML SDV IV PRN (00:03)
[2020-06-07] MEDS ORDERED: ACETAMINOPHEN 325 MG TABLET PO PRN (00:03)
[2020-06-07 01:04] LABS: UR PRO/CREAT RATIO RESULT 1.6 mg/mg (0.0-0.2); URINE CREATININE 14.9 mg/dL (24-392); URINE PROTEIN 23.3 mg/dL (<12)
--- NOTE | 2020-06-07 01:10 | PDOC H&P ---
History of Present Illness Patient complains of: Bilateral leg swelling, shortness of breath History of Present Illness: CHRISTOFER ANTHONY is a 34 year old male who was recently treated for cholecystitis about a month ago status post cholecystectomy and iron deficiency anemia now presents to the ED reporting lateral leg swelling which is initially started during his last hospital stay about a month ago. Patient states that the swelling started on both lower extremities and slowly increased his thighs and scrotum. Associated with this patient also reports that he has dyspnea on exertion. He reports that he feels short of breath with minimal amount of exertion like going to the bathroom. He denies orthopnea, PND, chest pain, palpitation, dizziness. He also denies any cough, fever, chills, abdominal pain, or any change in his bowel or urinary habits. Patient has a known history of iron deficiency anemia and was on iron supplement and currently denies any hematochezia, melena, hematemesis, epistaxis, hemoptysis or bleeding from any site. Past Medical History Psychiatric Medical History: Denies: Depression Past Surgical History Past Surgical History: Reports: Cholecystectomy Social History Information Source: Patient Lives with: Family Smoking Status: Former Smoker Electronic Cigarette use?: No Frequency of Alcohol Use: None Hx Recreational Drug Use: No Drugs: None Hx Prescription Drug Abuse: No - Advance Directive Resuscitation Status: Full Code Family History Family History: Reviewed & Not Pertinent Parental Family History Reviewed: Yes Children Family History Reviewed: Yes Sibling(s) Family History Reviewed.: Yes Medication/Allergy Home Medications: Ibuprofen [Motrin 800 mg Tablet] 800 mg PO TIDP PRN 05/06/20 Cefpodoxime Proxetil [Vantin 200 mg Tablet] 200 mg PO BID #20 tablet 05/12/20 Oxycodone HCl/Acetaminophen [Percocet 5-325 mg Tablet] 1 tab PO Q6HP PRN #20 tablet 05/12/20 Allergies/Adverse Reactions: No Known Allergies Allergy (Verified 06/06/20 17:19) Review of Systems Constitutional: ABSENT: chills, fever(s), headache(s), weight gain, weight loss Eyes: ABSENT: visual disturbances Ears: ABSENT: hearing changes Nose, Mouth, and Throat: ABSENT: mouth pain, sore throat Cardiovascular: PRESENT: as per HPI Respiratory: PRESENT: as per HPI Gastrointestinal: PRESENT: as per HPI Genitourinary: ABSENT: dysuria, hematuria Musculoskeletal: PRESENT: as per HPI Integumentary: ABSENT: rash, wounds Neurological: ABSENT: abnormal gait, abnormal speech, confusion, dizziness, focal weakness, syncope Psychiatric: ABSENT: anxiety, depression, homidical ideation, suicidal ideation Endocrine: ABSENT: cold intolerance, heat intolerance, polydipsia, polyuria Hematologic/Lymphatic: ABSENT: easy bleeding, easy bruising Physical Exam Vital Signs: Temp Pulse Resp BP Pulse Ox 98.2 F 107 H 23 H 133/90 H 94 06/07/20 00:00 06/06/20 23:37 06/07/20 00:00 06/07/20 00:00 06/07/20 00:00 Intake & Output 06/05/20 06/06/20 06/07/20 06:59 06:59 06:59 Intake Total 694 Output Total 2200 Balance -1506 Weight 81.647 kg Additional comments: GENERAL APPEARANCE: Alert and oriented x3, in no acute distress HEENT: Normocephalic and atraumatic. No scleral icterus. Moist oral mucosa NECK: Supple. No lymphadenopathy or tenderness. No carotid bruit. No JVD CHEST: Symmetric. Nontender to palpation. LUNGS: Has dullness to percussion and decreased air entry on the right lower lung field HEART: Regular rate and rhythm with normal S1 and S2. No murmurs, gallops, or rubs. ABDOMEN: Flat, soft, active bowel sounds, no direct or rebound tenderness. No organomegaly detected. No CVA tenderness EXTREMITIES: No cyanosis, clubbing. Has +4 pitting edema of bilateral lower extremities extending to his scrotum MUSCULOSKELETAL: No deformity, atrophy or swelling noted PSYCHIATRIC: Recent and remote memory is intact. Appropriate mood and affect. SKIN: Warm, dry, and well perfused. No lesions or rashes are noted. NEUROLOGIC: No focal sensory or motor deficits are noted. Results Laboratory Results: 06/06/20 18:55 06/06/20 17:50 06/06/20 06/06/20 06/06/20 17:50 17:50 17:50 WBC Cancelled RBC Cancelled Hgb Cancelled Hct Cancelled MCV Cancelled MCH Cancelled MCHC Cancelled RDW Cancelled Plt Count Cancelled Seg Neutrophils % Cancelled Sodium 138.5 Potassium 4.8 Chloride 103 Carbon Dioxide 31 H Anion Gap 5 BUN 17 Creatinine 0.92 Est GFR ( Amer) > 60 Glucose 100 Lactic Acid 2.1 Calcium 8.7 Total Bilirubin 1.0 AST 27 Alkaline Phosphatase 344 H Total Protein 6.7 Albumin 2.8 L Urine Color Urine Appearance Urine pH Ur Specific [place] Urine Protein Urine Glucose (UA) Urine Ketones Urine Blood Urine Nitrite Ur Leukocyte Esterase Urine WBC (Auto) Urine RBC (Auto) Blood Type Antibody Screen 06/06/20 06/06/20 06/06/20 18:55 20:00 20:20 WBC 14.5 H RBC 2.50 L Hgb 7.0 L Hct 21.7 L MCV 87 D MCH 28.1 MCHC 32.5 RDW 19.3 H Plt Count 416 Seg Neutrophils % 84.8 H Sodium Potassium Chloride Carbon Dioxide Anion Gap BUN Creatinine Est GFR ( Amer) Glucose Lactic Acid Calcium Total Bilirubin AST Alkaline Phosphatase Total Protein Albumin Urine Color STRAW Urine Appearance CLEAR Urine pH 6.0 Ur Specific [place] 1.009 Urine Protein NEGATIVE Urine Glucose (UA) NEGATIVE Urine Ketones NEGATIVE Urine Blood SMALL H Urine Nitrite NEGATIVE Ur Leukocyte Esterase NEGATIVE Urine WBC (Auto) 1 Urine RBC (Auto) 1 Blood Type B POSITIVE Antibody Screen NEGATIVE 06/06/20 06/06/20 17:50 17:50 Creatine Kinase 41 L CK-MB (CK-2) 0.53 Troponin I 0.058 NT-Pro-B Natriuret Pep 59764 H Impressions: Chest X-Ray 06/06/20 17:29 IMPRESSION: Bilateral patchy airspace opacities and right pleural effusion are new/progressed from prior. Findings could be due to a new infection, however given presence of nodules on previous chest CT, recommend repeat chest CT to evaluate and exclude other pathology. Chest/Abdomen CTA 06/06/20 18:56 IMPRESSION: 1. Large right pleural effusion, scattered dense groundglass infiltrates, and scattered focal areas of peripheral consolidation in both lungs. Commonly reported imaging features of COVID-19 pneumonia are present. Other processes such as influenza pneumonia and organizing pneumonia, as can be seen with drug toxicity and connective tissue disease, can cause a similar imaging pattern. [PneTyp] 2. No CT evidence for pulmonary embolism. 3. Cardiomegaly Assessment and Plan - Diagnosis (1) New onset of congestive heart failure Is this a current diagnosis for this admission?: Yes Plan: Patient presents with bilateral leg swelling extending to the scrotum and exertional shortness of breath Physical examination significant for +4 bilateral pitting edema up to the scrotum, elevated JVD Chest x-ray showed bilateral patchy opacity and right pleural effusion Follow-up CT done also showed large pleural effusion and scattered dense groundglass infiltrates concerning for viral pneumonia. There was cardiomegaly. No evidence of PE Patient currently has no respiratory symptoms except for shortness of breath which is likely due to underlying heart failure BNP was markedly elevated at 13,700 Started patient on Lasix 60 mg IV twice daily Strict I&O's, fluid restriction and daily weights Continue telemetry monitoring On cardiac diet Will transthoracic echocardiogram in the morning Consider cardiology consult (2) Elevated troponin Is this a current diagnosis for this admission?: Yes Plan: Patient denies any chest pain EKG shows sinus tachycardia with no significant ST-T wave changes Troponin was 0.058 on presentation Continue trending cardiac enzymes Placed him on aspirin and statin On telemetry monitoring. (3) Anemia Qualifiers: Anemia type: unspecified type Qualified Code(s): D64.9 - Anemia, unspecifi ed Is this a current diagnosis for this admission?: Yes Plan: Hemoglobin on this presentation was 7.0 Patient has chronic anemia and baseline hemoglobin was between 7 and 8 in the past few months Patient was transfused with 2 units of packed RBC at the ED Currently has no blood loss Continue iron supplement Monitor posttransfusion CBC (4) Pleural effusion, right Is this a current diagnosis for this admission?: Yes Plan: Likely due to heart failure Continue treating underlying cause with diuretics - Time Time Spent with patient: 35 or more minutes Total Critical Time (Minutes): 45 Medications reviewed and adjusted accordingly: Yes Anticipated Discharge Disposition: Home, Self Care Anticipated Discharge Timeframe: within 72 hours - Inpatient Certification Based on my medical assessment, after consideration of the patient's comorbidities, presenting symptoms, or acuity I expect that the services needed warrant INPATIENT care.: Yes I certify that my determination is in accordance with my understanding of Medicare's requirements for reasonable and necessary INPATIENT services [42 CFR 412.3e].: Yes Medical Necessity: Failure to Improve With Outpatient Therapy, Need Close Monitoring Due to Risk of Patient Decompensation, Need For Continuous Telemetry Monitoring, Risk of Complication if Not Cared For in Hospital Post Hospital Care: D/C or Transfer Summary
[2020-06-07 06:40] LABS: ABSOLUTE BASOPHILS # (AUTO) 0.1 10^3/uL (0.0-0.2); ABSOLUTE EOSINOPHILS # (AUTO) 0.1 10^3/uL (0.0-0.6); ABSOLUTE LYMPHOCYTES (AUTO) 1.3 10^3/uL (0.5-4.7); ABSOLUTE MONOCYTES (AUTO) 0.8 10^3/uL (0.1-1.4); ABSOLUTE NEUT (AUTO) 11.2 10^3/uL (1.7-8.2); EOSINOPHILS % (AUTO) 0.8 % (0-6); HEMATOCRIT 24.9 % (37.9-51.0); HEMOGLOBIN 8.4 g/dL (13.5-17.0); LYMPHOCYTES % (AUTO) 9.5 % (13-45); MEAN CORPUSCULAR HEMOGLOBIN 28.9 pg (27.0-33.4); MEAN CORPUSCULAR HGB CONC 33.9 g/dL (32.0-36.0); MEAN CORPUSCULAR VOLUME 85 fl (80-97); MONOCYTES % (AUTO) 5.7 % (3-13); PLATELET COUNT 379 10^3/uL (150-450); RED BLOOD COUNT 2.93 10^6/uL (4.35-5.55); RED CELL DISTRIBUTION WIDTH 17.8 % (11.5-14.0); TOTAL CELLS COUNTED % (AUTO) 100 %; WHITE BLOOD COUNT 13.4 10^3/uL (4.0-10.5)
[2020-06-07 07:16] LABS: ANION GAP 5 (5-19); BLOOD UREA NITROGEN 14 mg/dL (7-20); CALCIUM 8.3 mg/dL (8.4-10.2); CARBON DIOXIDE 28 mmol/L (22-30); CHLORIDE 104 mmol/L (98-107); CHOLESTEROL 90.88 mg/dL (0-200); GLUCOSE 84 mg/dL (75-110); TRIGLYCERIDES 74 mg/dL (<150)
[2020-06-07 07:27] LABS: DIRECT LDL 47 mg/dL (<100)
[2020-06-07] MEDS: FAMOTIDINE 20 MG TABLET PO SCH ×2 (09:27→21:25)
[2020-06-07] MEDS ORDERED: FUROSEMIDE 40 MG TABLET PO SCH (10:00)
[2020-06-07] MEDS ORDERED: ENOXAPARIN SODIUM INJ 40 MG/0.4 ML DISP.SYRIN SUBCUT SCH (10:00)
[2020-06-07] MEDS ORDERED: ASPIRIN 81 MG TABLET, CHEWABLE PO SCH (10:00)
[2020-06-07] MEDS: FUROSEMIDE INJ/PF 40 MG/4 ML SDV IV SCH ×2 (14:40→21:25)
[2020-06-07] MEDS ORDERED: HYDROCODONE/ACETAMINOPHEN 5-325 MG TABLET PO PRN (15:07)
[2020-06-07] MEDS ORDERED: VANCOMYCIN HCL 0 MG in DEXTROSE 5%-WATER 250 ML IV NR (17:15)
[2020-06-07 17:41] LABS: URINE AMPHETAMINES SCREEN NEGATIVE; URINE BARBITURATES SCREEN NEGATIVE; URINE BENZODIAZEPINES SCREEN NEGATIVE; URINE COCAINE SCREEN NEGATIVE; URINE MARIJUANA (THC) SCREEN NEGATIVE; URINE METHADONE SCREEN NEGATIVE; URINE PHENCYCLIDINE SCREEN NEGATIVE
--- NOTE | 2020-06-07 17:47 | XCELERA REPORT ---
[address] [address] Transthoracic Echocardiogram Report Name: CHRISTOFER ANTHONY Age: 34 yrs Gender: Male : 1985 Patient Status: Inpatient Patient Location: [address] [place], [place] [id number] Study Date: 06/07/2020 02:48 PM Height: 68 in Weight: 180 lb BSA: 2.0 m2 Procedure: A complete two-dimensional transthoracic echocardiogram was performed (2D, M-mode, spectral and color flow Doppler). The study was technically good with many images being of high quality. Reason For Study: New onset congestive heart failure Ordering Physician: JAMIL MADDOX Performed By: Christie Romero Interpretation Summary The left ventricle is mildly to moderately dilated. Left ventricular systolic function is severely reduced. The Ejection Fraction estimate is <20%. Doppler measurements suggest reversible restrictive left ventricular relaxation, which is associated with grade III/IV or moderate diastolic dysfunction. There is severe global hypokinesis of the left ventricle. There is no thrombus. Mild to moderate RVE with moderate RV systolic dysfunction. Moderate to severe MITZY. Moderate LAE> Mild MR, severe TR. Severe pulmonary hypertension estimated to be at least 73 mmHg. Small, echo dense structure attached to the tricuspid valve concerning for vegetation, please correlate clinically. Consider DENISA for further evaluation. Small pericardial effusion. Pleural effusion present. MMode/2D Measurements & Calculations RVDd: 4.1 cm LVIDd: 6.2 cm FS: 15.0 % Ao root diam: IVSd: 0.96 cm LVIDs: 5.3 cm EDV(Teich): 2.8 cm 196.4 ml Ao root area: LVPWd: 0.99 cm ESV(Teich): 6.2 cm2 135.2 ml LA dimension: EF(Teich): 31.2 % 5.1 cm LVLd ap4: 8.6 cm SV(MOD-sp4): EDV(MOD-sp4): 53.0 ml 164.0 ml LVLs ap4: 7.7 cm ESV(MOD-sp4): 111.0 ml EF(MOD-sp4): 32.3 % Doppler Measurements & Calculations MV E max jin: MV P1/2t max jin: Ao V2 max: LV V1 max P.6 cm/sec 83.3 cm/sec 149.9 cm/sec 4.8 mmHg MV A max jin: MV P1/2t: 49.1 msec Ao max P.0 mmHg LV V1 max: 38.7 cm/sec MVA(P1/2t): 4.5 cm2 109.7 cm/sec MV E/A: 2.1 MV dec slope: 497.1 cm/sec2 MV dec time: 0.17 sec PA V2 max: TR max jin: MV P1/2t-pr_phl: 80.5 cm/sec 365.1 cm/sec 49.1 msec PA max PG: TR max P.3 mmHg 2.6 mmHg Left Ventricle The left ventricle is mildly to moderately dilated. Left ventricular systolic function is severely reduced. The Ejection Fraction estimate is <20%. Doppler measurements suggest reversible restrictive left ventricular relaxation, which is associated with grade III/IV or moderate diastolic dysfunction. There is severe global hypokinesis of the left ventricle. There is no thrombus. Right Ventricle The right ventricle is mild to moderately dilated. The right ventricular systolic function is moderately reduced. Atria The right atrium is moderate to severely dilated. The left atrium is moderately dilated. There is no Doppler evidence for an interatrial shunt. Mitral Valve The mitral valve is normal in structure and function. There is no mitral valve stenosis. There is a mild amount of mitral regurgitation. Aortic Valve The aortic valve is normal in structure and functions normally. There is no aortic valve stenosis. No aortic regurgitation is present. Tricuspid Valve The tricuspid valve is not well visualized, but is grossly normal. Possible TV vegetation. There is a severe amount of tricuspid regurgitation. There is servere pulmonary hypertension by echo. Right ventricular systolic pressure is estimated to be elevated at >60mmHg. Pulmonic Valve The pulmonic valve is normal in structure and function. Great Vessels The inferior vena cava appeared dilated and did not change with respiration (RAP > 20 mmHg). Effusions Small pericardial effusion. Pleural Effusion noted. : JAMIL MADDOX Antonio
[2020-06-07] MEDS: PIPERACILLIN SODIUM/TAZOBACTAM 3.375 GM in NORMAL SALINE 100 ML IV SCH (18:46)
[2020-06-07] MEDS ORDERED: DIAZEPAM 2 MG TABLET PO PRN (19:06)
--- NOTE | 2020-06-07 19:07 | PDOC TRANSFER SUMMARY ---
General Admission Date/PCP: 06/07/20 00:16 Admission Date: 06/07/20 Transfer Date: 06/07/20 Accepting Facility: [facility] Accepting Physician: Dr. Mara Morel Resuscitation Status: Full Code - Transfer Diagnosis (1) Heart failure with reduced ejection fraction and diastolic dysfunction Is this a current diagnosis for this admission?: Yes (2) Endocarditis Is this a current diagnosis for this admission?: Yes (3) Severe pulmonary hypertension Is this a current diagnosis for this admission?: Yes (4) Pleural effusion Is this a current diagnosis for this admission?: Yes (5) Severe tricuspid regurgitation Is this a current diagnosis for this admission?: Yes (6) Moderate mitral regurgitation Is this a current diagnosis for this admission?: Yes (7) Anemia Is this a current diagnosis for this admission?: Yes (8) Elevated troponin Is this a current diagnosis for this admission?: Yes (9) Pleural effusion, right Is this a current diagnosis for this admission?: Yes (10) New onset of congestive heart failure Is this a current diagnosis for this admission?: Yes - Transfer Medications Home Medications: Ferrous Gluconate 324 mg PO DAILY 06/07/20 Transfer Medications: Current Medications Acetaminophen (Acetaminophen 325 Mg Tablet) 650 mg PO Q4HP PRN PRN Reason: FEVER >101 Stop: 07/07/20 00:02 Last Admin: 06/07/20 14:40 Dose: 650 mg Documented by: Hydrocodone Bitart/Acetaminophen (Hydrocodone/Acetaminophen 5-325 Mg Tablet) 1 tab PO Q6HP PRN PRN Reason: FOR PAIN Stop: 06/14/20 15:06 Last Admin: 06/07/20 18:51 Dose: 1 tab Documented by: Aspirin (Aspirin 81 Mg Tablet, Chewable) 81 mg PO DAILY [facility] Stop: 07/07/20 09:59 Last Admin: 06/07/20 09:27 Dose: 81 mg Documented by: Enoxaparin Sodium (Enoxaparin Sodium Inj 40 Mg/0.4 Ml Disp.Syrin) 40 mg SUBCUT DAILY [facility] Stop: 07/07/20 09:59 Last Admin: 06/07/20 09:27 Dose: 40 mg Documented by: Famotidine (Famotidine 20 Mg Tablet) 20 mg PO Q12 PRISCILLA Stop: 07/07/20 09:59 Last Admin: 06/07/20 09:27 Dose: 20 mg Documented by: Furosemide (Furosemide Inj/Pf 40 Mg/4 Ml Sdv) 40 mg IV Q8 PRISCILLA Stop: 07/07/20 13:59 Last Admin: 06/07/20 14:40 Dose: 40 mg Documented by: Sodium Chloride (Nacl 0.9% 250 Ml Iv Soln) 250 mls @ 30 mls/hr IV .DURING TRANSFUSION PRN PRN Reason: THIS MED IS NOT "PRN" Stop: 06/07/20 19:34 Last Infusion: 06/06/20 23:34 Dose: Infused Documented by: Sodium Chloride (Nacl 0.9% 250 Ml Iv Soln) 250 mls @ 0 mls/hr IV CONTINUOUS PRN PRN Reason: AFTER EACH UNIT Stop: 06/07/20 19:34 Last Infusion: 06/07/20 08:20 Dose: Infused Documented by: Vancomycin HCl / Dextrose 250 mls @ 0 mls/hr IV .PHARMACY TO DOSE NR Stop: 06/14/20 17:14 Piperacillin Sod/Tazobactam (Sod 3.375 gm/ Sodium Chloride) 100 mls @ 200 mls/hr IV Q6 PRISCILLA Stop: 06/14/20 18:59 Last Admin: 06/07/20 18:46 Dose: 200 mls/hr Documented by: Ondansetron HCl (Ondansetron Hcl Inj/Pf 4 Mg/2 Ml Sdv) 4 mg IV Q8HP PRN PRN Reason: FOR NAUSEA/VOMITING Stop: 07/07/20 00:02 - Allergies Allergies/Adverse Reactions: No Known Allergies Allergy (Verified 06/06/20 17:19) - Diet/Activity Discharge Diet: Cardiac Hospital Course Hospital Course: Per H&P by Dr. Jackson: CHRISTOFER ANTHONY is a 34 year old male who was recently treated for cholecystitis about a month ago status post cholecystectomy and iron deficiency anemia now presents to the ED reporting lateral leg swelling which is initially started during his last hospital stay about a month ago. Patient states that the swelling started on both lower extremities and slowly increased his thighs and scrotum. Associated with this patient also reports that he has dyspnea on exertion. He reports that he feels short of breath with minimal amount of exertion like going to the bathroom. He denies orthopnea, PND, chest pain, palpitation, dizziness. He also denies any cough, fever, chills, abdominal pain, or any change in his bowel or urinary habits. Patient has a known history of iron deficiency anemia and was on iron supplement and currently denies any hematochezia, melena, hematemesis, epistaxis, hemoptysis or bleeding from any site. Course: Patient was admitted to [facility] on continuous cardiac telemetry. He was placed on DVT prophylaxis Lovenox and daily aspirin therapy. Diuresis was started with IV furosemide 40 mg every 8 hours with excellent output so far. Patient is -1.4 L in 12 hours with report of decreased dyspnea/orthopnea. He does continue to have +3 pitting edema to bilateral lower extremities extending to the groin with significant scrotal edema and discomfort. He is maintaining oxygen saturations on room air. Continues to deny chest pain and palpitations. Evaluation included a CTA of the chest which demonstrated a large right pleural effusion with scattered dense groundglass infiltrates; cardiomegaly; negative for pulmonary embolus. Patient did test negative for Covid. Echocardiogram completed this evening; received call from interpreting medical reception specialist. The patient was noted to have LVEF of 20% with grade 3/4 LV diastolic dysfunction, severe global hypokinesis of the left ventricle, moderate left ventricle dilatation, moderate RV systolic dysfunction, moderate to severe MITZY, moderate LAE, mild MR, severe TR, and severe pulmonary hypertension. He also had findings concerning for vegetations to the tricuspid valve. Discussed findings with patient. He reports remote IV drug use (several years ago). Patient's blood cultures remain pending. Of note, he was admitted to our facility 05/05/20 with acute cholecystitis and was bacteremic with Serratia nilton escens at that time. He was treated with meropenem and discharged home on Cefpodoxime x10 days. Patient is started on IV vancomycin and Zosyn. [facility] was contacted for consultation with cardiology service and cardiothoracic service for new onset heart failure with a severely reduced e jection fraction. has graciously accepted the patient to their service. Awaiting financial authorization and bed assignment. Physical Exam Vital Signs: Temp Pulse Resp BP Pulse Ox 99.6 F 112 H 16 136/91 H 98 06/07/20 16:02 06/07/20 16:02 06/07/20 16:02 06/07/20 16:02 06/07/20 16:02 Intake & Output 06/06/20 06/07/20 06/08/20 06:59 06:59 06:59 Intake Total 1459 730 Output Total 2900 250 Balance -1441 480 Weight 84.6 kg General appearance: PRESENT: no acute distress, cooperative, well-developed, well-nourished Head exam: PRESENT: atraumatic, normocephalic Eye exam: PRESENT: conjunctiva pink, EOMI, PERRLA. ABSENT: scleral icterus Mouth exam: PRESENT: moist, tongue midline Neck exam: PRESENT: JVD. ABSENT: carotid bruit, lymphadenopathy, thyromegaly Respiratory exam: PRESENT: clear to auscultation angie, decreased breath sounds - Right lower larry, symmetrical, unlabored. ABSENT: rales, rhonchi, wheezes Cardiovascular exam: PRESENT: RRR. ABSENT: diastolic murmur, rubs, systolic murmur Pulses: PRESENT: normal dorsalis pedis pul Vascular exam: PRESENT: normal capillary refill GI/Abdominal exam: PRESENT: normal bowel sounds, soft. ABSENT: distended, guarding, mass, organolmegaly, rebound, tenderness Rectal exam: PRESENT: deferred Gentrourinary exam: PRESENT: scrotal swelling Extremities exam: PRESENT: full ROM, other - +3/4 pitting edema BLE. ABSENT: calf tenderness, clubbing, pedal edema Musculoskeletal exam: PRESENT: ambulatory Neurological exam: PRESENT: alert, awake, oriented to person, oriented to place, oriented to time, oriented to situation, CN II-XII grossly intact. ABSENT: motor sensory deficit Psychiatric exam: PRESENT: appropriate affect, normal mood. ABSENT: homicidal ideation, suicidal ideation Skin exam: PRESENT: dry, intact, warm. ABSENT: cyanosis, rash Results Laboratory Results: 06/07/20 06:24 06/07/20 06:24 06/06/20 06/06/20 06/06/20 17:50 17:50 18:55 WBC Cancelled 14.5 H RBC Cancelled 2.50 L Hgb Cancelled 7.0 L Hct Cancelled 21.7 L MCV Cancelled 87 D MCH Cancelled 28.1 MCHC Cancelled 32.5 RDW Cancelled 19.3 H Plt Count Cancelled 416 Seg Neutrophils % Cancelled 84.8 H Sodium Potassium Chloride Carbon Dioxide Anion Gap BUN Creatinine Est GFR ( Amer) Glucose Lactic Acid 2.1 Calcium Magnesium Triglycerides Cholesterol LDL Cholesterol Direct VLDL Cholesterol HDL Cholesterol Urine Color Urine Appearance Urine pH Ur Specific [place] Urine Protein Urine Glucose (UA) Urine Ketones Urine Blood Urine Nitrite Ur Leukocyte Esterase Urine WBC (Auto) Urine RBC (Auto) Blood Type Antibody Screen 06/06/20 06/06/20 06/07/20 20:00 20:20 06:24 WBC 13.4 H RBC 2.93 L Hgb 8.4 L Hct 24.9 L MCV 85 MCH 28.9 MCHC 33.9 RDW 17.8 H Plt Count 379 Seg Neutrophils % 83.0 H Sodium Potassium Chloride Carbon Dioxide Anion Gap BUN Creatinine Est GFR ( Amer) Glucose Lactic Acid Calcium Magnesium Triglycerides Cholesterol LDL Cholesterol Direct VLDL Cholesterol HDL Cholesterol Urine Color STRAW Urine Appearance CLEAR Urine pH 6.0 Ur Specific [place] 1.009 Urine Protein NEGATIVE Urine Glucose (UA) NEGATIVE Urine Ketones NEGATIVE Urine Blood SMALL H Urine Nitrite NEGATIVE Ur Leukocyte Esterase NEGATIVE Urine WBC (Auto) 1 Urine RBC (Auto) 1 Blood Type B POSITIVE Antibody Screen NEGATIVE 06/07/20 06:24 WBC RBC Hgb Hct MCV MCH MCHC RDW Plt Count Seg Neutrophils % Sodium 136.6 L Potassium 4.0 Chloride 104 Carbon Dioxide 28 Anion Gap 5 BUN 14 Creatinine 0.75 Est GFR ( Amer) > 60 Glucose 84 Lactic Acid Calcium 8.3 L Magnesium 1.6 Triglycerides 74 Cholesterol 90.88 LDL Cholesterol Direct 47 VLDL Cholesterol 15.0 HDL Cholesterol 19 L Urine Color Urine Appearance Urine pH Ur Specific [place] Urine Protein Urine Glucose (UA) Urine Ketones Urine Blood Urine Nitrite Ur Leukocyte Esterase Urine WBC (Auto) Urine RBC (Auto) Blood Type Antibody Screen 06/06/20 06/06/20 06/07/20 17:50 17:50 02:00 Creatine Kinase 41 L CK-MB (CK-2) 0.53 Troponin I 0.058 0.040 NT-Pro-B Natriuret Pep [id number] H 06/07/20 06:24 Creatine Kinase CK-MB (CK-2) Troponin I 0.032 NT-Pro-B Natriuret Pep Impressions: Chest X-Ray 06/06/20 17:29 IMPRESSION: Bilateral patchy airspace opacities and right pleural effusion are new/progressed from prior. Findings could be due to a new infection, however given presence of nodules on previous chest CT, recommend repeat chest CT to evaluate and exclude other pathology. Chest/Abdomen CTA 06/06/20 18:56 IMPRESSION: 1. Large right pleural effusion, scattered dense groundglass infiltrates, and scattered focal areas of peripheral consolidation in both lungs. Commonly reported imaging features of COVID-19 pneumonia are present. Other processes such as influenza pneumonia and organizing pneumonia, as can be seen with drug toxicity and connective tissue disease, can cause a similar imaging pattern. [PneTyp] 2. No CT evidence for pulmonary embolism. 3. Cardiomegaly Plan Discharge Plan: Transfer to [facility]; awaiting financial authorization and bed assignment. Time Spent: Greater than 30 Minutes
[2020-06-07] MEDS ORDERED: VANCOMYCIN HCL 1,000 MG in DEXTROSE 5%-WATER 250 ML IV SCH (23:00)
[2020-06-08] MEDS: PIPERACILLIN SODIUM/TAZOBACTAM 3.375 GM in NORMAL SALINE 100 ML IV SCH (01:25)
[2020-06-08 05:04] VITALS: BP 135/95
== END 2020-06-08 05:20 | disposition short-term general hospital (02) | DRG 292 ==
LOC: ER 17:01 → EH 06-07 00:16 → 3W 06-07 02:41
PROVIDERS: ADMIT Student in an Organized Health Care Education/Training Program; ATTEND Registered Nurse
PROC: 30233N1 Transfusion of Nonautologous Red Blood Cells into Peripheral Vein, Percutaneous Approach (ICD-10-PCS; principal; 2020-06-06)
PROC: B24BZZ4 Ultrasonography of Heart with Aorta, Transesophageal (ICD-10-PCS; 2020-06-07)
DX: I50.9 Heart failure, unspecified (principal); I38 Endocarditis, valve unspecified; Z20.822 Contact with and (suspected) exposure to COVID-19; I27.20 Pulmonary hypertension, unspecified; I08.1 Rheumatic disorders of both mitral and tricuspid valves; D50.9 Iron deficiency anemia, unspecified; Z87.891 Personal history of nicotine dependence; Z59.9 Problem related to housing and economic circumstances, unspecified; Z75.1 Person awaiting admission to adequate facility elsewhere
CPT/HCPCS: 36415; 36430; 71046; 71275; 80048; 80053; 80061; 80307; 81001; 82550; 82553; 82570; 83605; 83735; 83880; 84156; 84484; 85025; 86850; 86900; 86901; 86920; 87040; 93005; 93010; 93306; 96361; 96365; 96367; 96375; 99285; 0202U; J0692; J1650; J1940; J2543; J3370; J3490; J7050; J7060; P9016